=== PATIENT | female | born 1945 | race Caucasian/White ===

== ENCOUNTER 2023-11-22 20:54 | Inpatient (IN) ==
[2023-11-22] MEDS: ONDANSETRON INJ 2 MG/ML 2 ML VIAL IV STA ×2 (21:16→23:31)
[2023-11-22] MEDS: SODIUM CHLORIDE 0.9% 500 ML IV STA (21:16)
[2023-11-22] MEDS: KETOROLAC TROMETHAMINE 15 MG/ML VIAL IV STA (21:17)
[2023-11-22 21:49] LABS: Basophils # (auto) 0.02 K/uL (0.00-0.20); Basophils % (auto) 0.2 %; Eosinophils # (auto) 0.05 K/uL (0.00-0.50); Eosinophils % (auto) 0.4 %; Hematocrit (blood only) 39.7 % (37.0-47.0); Hemoglobin 14.2 g/dl (12.0-16.0); Immature Granulocytes # (auto) 0.04 K/uL (0.01-0.20); Immature Granulocytes % (auto) 0.3 %; Lymphocytes # (auto) 1.63 K/uL (1.20-3.40); Lymphocytes % (auto) 12.9 %; Mean Corpuscular Hgb Conc 35.8 g/dL (32.0-36.0); Mean Corpuscular Volume 86.7 fL (80.0-100.0); Mean Platelet Volume 10.3 fL (9.4-12.4); Monocytes # (auto) 0.69 K/uL (0.11-0.59); Monocytes % (auto) 5.4 %; Neutrophils # (auto) 10.24 K/uL (1.40-6.50); Neutrophils % (auto) 80.8 %; Platelet Count 252 K/uL (130-400); RDW Coefficient of Variation 12.2 % (11.5-14.5); RDW Standard Deviation 38.6 fL (36.4-46.3); Red Blood Count 4.58 M/uL (4.20-5.40); White Blood Count 12.67 K/ul (4.8-10.8)
[2023-11-22 22:05] LABS: Alanine Aminotransferase 16 U/L (7-52); Albumin Globulin Ratio 1.6 (0.9-2); Albumin Level 4.5 gm/dl (3.4-5.0); Alkaline Phosphatase 83 U/L (34-104); BUN Creatinine Ratio 28.6 (10-20); Bilirubin,Total 0.8 mg/dl (0.2-1.0); Blood Urea Nitrogen 16 mg/dl (6-23); Calcium 9.8 mg/dl (8.6-10.3); Carbon Dioxide 22 mmol/L (21-32); Chloride 97 mmol/L (98-107); Creatinine Clr Calc Pharmacy 62.4 ml/min; Est GFR (African American) 103.5 ml/min; Est GFR (Non-African American) 89.3 ml/min; Globulin 2.9 gm/dl (2.5-4.0); Glucose 138 mg/dl (70-99(Fasting)); Lipase 16 U/L (11-82); Total Protein 7.4 gm/dl (6.0-8.3)
[2023-11-22 22:52] LABS: Potassium 4.1 mmol/L (3.5-5.1)
[2023-11-22] MEDS: OPTIRAY 320 100ml IV ONE (23:02)
[2023-11-22] MEDS: MoRPHine SULFATE 2 MG/ML CARP IV STA (23:31)
--- NOTE | 2023-11-23 00:03 | CT Scan Report ---
Exam(s): CT ABDOMEN + PELVIS With Contrast IV Amt: 90 ml opti 320 EXAM: CT Abdomen and Pelvis With Intravenous Contrast CLINICAL HISTORY: Reason for exam: abd pain, elevated WBC. TECHNIQUE: Axial computed tomography images of the abdomen and pelvis with intravenous contrast. Automated exposure control was utilized for the study. A dose lowering technique was utilized adhering to the principles of ALARA. CONTRAST: Patient received 90 ml opti 320 of IV contrast COMPARISON: No relevant prior studies available. FINDINGS: Lung bases: No consolidation. ABDOMEN: Liver: No mass. Gallbladder and bile ducts: There are gallstones noted within the gallbladder.. No ductal dilation. Pancreas: No mass. No ductal dilation. Spleen: No splenomegaly. Adrenals: No mass. Kidneys and ureters: No hydronephrosis. There are rounded lucencies in both kidneys. Stomach and bowel: There is a small hiatal hernia. The stomach is distended containing fluid and air. There are markedly distended loops of mid small bowel. There is air and stool noted in the colon. There are diverticula present on the colon. No significant inflammatory changes are noted. PELVIS: Appendix: The appendix is not visualized.. Bladder: No calculi are noted within the bladder.. Reproductive: Patient appears to be status post hysterectomy.. ABDOMEN and PELVIS: Intraperitoneal space: No free air. No significant fluid collection. Bones/joints: There are degenerative changes in the spine. There is a grade 1 spondylolisthesis of L3 on L4. Soft tissues: Unremarkable. Vasculature: No abdominal aortic aneurysm. Lymph nodes: No enlarged lymph nodes. IMPRESSION: There are markedly distended loops of mid small bowel. This is compatible with a partial high-grade small bowel obstruction. Small hiatal hernia. Cholelithiasis. Diverticulosis. There are possible bilateral renal cysts. See discussion above Electronically signed by: Onel Carreon MD 11/23/23 00:01 AM
[2023-11-23] MEDS ORDERED: MoRPHine SULFATE 2 MG/ML CARP IV PRN (00:13)
--- NOTE | 2023-11-23 00:42 | Emergency Department Note ---
Impression & Plan Small bowel obstruction ED Provider Note CHIEF COMPLAINT: abd pain HISTORY OF PRESENT ILLNESS: This 78-year-old female patient with past medical history of high blood pressure and small bowel obstruction presents emergency department with complaints of left lower quadrant abdominal pain since about 3:00 this afternoon. The patient states she had a bowel movement this morning without any difficulty. She admits to nausea, but has not vomited. She denies any recent febrile illnesses. She states she was in an outside emergency department last week for hypertension. She states she was placed on lisinopril 10 mg twice a day, which is the first time she has ever been on high blood pressure treatment. REVIEW OF SYSTEMS: A review of systems was performed with positives and pertinent negatives listed in the history of present illness. 10 systems were reviewed and are otherwise negative. ALLERGIES: see below MEDICATIONS: see below PMH: see below SOCIAL HISTORY: see below DDx: SBO, viral etiology, diverticulitis, UTI, kidney stone, among others. PHYSICAL EXAM: Vital signs reviewed. General: Well-appearing 78 yo female, in some discomfort. HEENT: No scleral icterus, PERRLA, neck supple. Atraumatic. Cardiovascular: Regular rate and rhythm, no extra sounds. Pulmonary: Clear to auscultation bilaterally, normal work of breathing. Abdomen: Soft, LLQ tenderness, + tympany to percussion, nondistended, positive bowel sounds. Musculoskeletal: Atraumatic, no peripheral edema. Neurologic: Patient awake alert and oriented x 3, speech is clear Skin: Warm, dry, no rash EMERGENCY DEPARTMENT COURSE/MDM: This patient was evaluated and appeared to be in no significant distress. IV access was obtained and laboratory work was drawn. The patient was placed on the cafeteria monitor noted to be in a normal sinus rhythm. IV normal saline solution was administered. CT imaging of the abdomen pelvis reveals a partial high-grade small bowel obstruction. NG tube to low intermittent suction was ordered. Patient did receive IV Toradol,morphine and Zofran for her discomfort. Laboratory work is fairly reassuring, but WBC is noted to be 12.6.. patient's case was discussed with Dr. Marcus of the hospitalist service who will evaluate the patient for admission and further management. patient and her were made aware of the plan and agreed. MONITORING: An order for cardiac monitoring was placed and the patient is noted to be in a NSR at 77 beats per minute. RADIOLOGY: CT abd pelvis: IMPRESSION: There are markedly distended loops of mid small bowel. This is compatible with a partial high-grade small bowel obstruction. Small hiatal hernia. Cholelithiasis. Diverticulosis. There are possible bilateral renal cysts. See discussion above EKG: To my interpretation reveals a normal sinus rhythm at 69 bpm. Previous inferior infarct. QTc of 443. No PVC, no PAC. 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 Beliefs That Will Affect Care: None Current Living Situation: Alone Feels Safe at Home: Yes Assistive Devices: None Allergies Allergies Allergy/AdvReac Type Severity Reaction Status Date / Time sulfasalazine Allergy Intermediate Difficulty Verified 11/22/23 23:42 Breathing droperidol [From Inapsine] Allergy Mild Agitated Verified 11/22/23 23:42 prochlorperazine AdvReac Intermediate spasm Verified 11/22/23 23:30 [From Compazine] fluconazole AdvReac Mild Vomiting Verified 11/22/23 23:42 meperidine [From Demerol] AdvReac Mild Anxiety Verified 11/22/23 23:42 albuterol AdvReac Tachycardia Verified 11/22/23 23:42 [From Proventil HFA] Home Meds Home Medications Medication Instructions Recorded Confirmed levalbuterol tartrate 45 2 puff inhalation Q4 PRN Shortness 11/22/23 11/22/23 mcg/actuation aerosol inhaler Of Breath Or Wheezing lisinopril 10 mg tablet 10 mg PO BID 11/22/23 11/22/23 Results & Data (ED) Vital Signs Vital Signs - 24 hr 11/22/23 20:57 11/22/23 21:48 11/22/23 21:48 Temperature 36.6 C Temperature Source Temporal Artery Scan Pulse Rate 75 Pulse Rate from SpO2 Sensor Pulse Rhythm Regular Pulse Strength Normal Respiratory Rate 22 Respiratory Effort / Characteristics Non-Labored Spontaneous Respiratory Depth Normal Blood Pressure 187/77 H 172/96 H 172/96 H Blood Pressure Mean 113 128 128 Blood Pressure Position Sitting Pulse Oximetry 99 Oxygen Delivery Method Room Air Sepsis Recent Fever Within 48 Hours No Sepsis New/Unexplained Change in Mental Status N/A Sepsis Action Taken by Nursing No Action Required 11/22/23 21:48 11/22/23 21:49 11/22/23 21:51 Temperature Temperature Source Pulse Rate 68 68 Pulse Rate from SpO2 Sensor 68 Pulse Rhythm Pulse Strength Respiratory Rate 20 Respiratory Effort / Characteristics Respiratory Depth Blood Pressure 172/96 H Blood Pressure Mean 128 Blood Pressure Position Pulse Oximetry 98 Oxygen Delivery Method Sepsis Recent Fever Within 48 Hours Sepsis New/Unexplained Change in Mental Status Sepsis Action Taken by Nursing 11/22/23 22:00 11/22/23 22:00 11/22/23 22:24 Temperature Temperature Source Pulse Rate 68 72 Pulse Rate from SpO2 Sensor 67 73 Pulse Rhythm Pulse Strength Respiratory Rate 19 26 H Respiratory Effort / Characteristics Respiratory Depth Blood Pressure 158/87 H Blood Pressure Mean 113 Blood Pressure Position Pulse Oximetry 92 98 Oxygen Delivery Method Sepsis Recent Fever Within 48 Hours Sepsis New/Unexplained Change in Mental Status Sepsis Action Taken by Nursing 11/22/23 22:30 11/22/23 23:19 11/22/23 23:19 Temperature Temperature Source Pulse Rate Pulse Rate from SpO2 Sensor Pulse Rhythm Pulse Strength Respiratory Rate Respiratory Effort / Characteristics Respiratory Depth Blood Pressure 126/55 L 140/93 140/93 Blood Pressure Mean 96 117 117 Blood Pressure Position Pulse Oximetry Oxygen Delivery Method Sepsis Recent Fever Within 48 Hours Sepsis New/Unexplained Change in Mental Status Sepsis Action Taken by Nursing 11/22/23 23:39 Temperature Temperature Source Pulse Rate 77 Pulse Rate from SpO2 Sensor 77 Pulse Rhythm Pulse Strength Respiratory Rate 22 Respiratory Effort / Characteristics Respiratory Depth Blood Pressure Blood Pressure Mean Blood Pressure Position Pulse Oximetry 96 Oxygen Delivery Method Sepsis Recent Fever Within 48 Hours Sepsis New/Unexplained Change in Mental Status Sepsis Action Taken by Skilled Nursing Medications Current Medication List: was personally reviewed by me Laboratory Data Attestation: I reviewed the patient's lab results. 11/28/23 06:00 11/28/23 06:00 Lab Results 11/22/23 11/22/23 Range/Units 21:19 22:18 WBC 12.67 H (4.8-10.8) K/ul RBC 4.58 (4.20-5.40) M/uL Hgb 14.2 (12.0-16.0) g/dl Hct 39.7 (37.0-47.0) % MCV 86.7 (80.0-100.0) fL MCH 31.0 (25.0-34.0) pg MCHC 35.8 (32.0-36.0) g/dL RDW Std Deviation 38.6 (36.4-46.3) fL RDW Coeff of [place] 12.2 (11.5-14.5) % Plt Count 252 (130-400) K/uL MPV 10.3 (9.4-12.4) fL Immature Gran % (Auto) 0.3 % Neut % (Auto) 80.8 % Lymph % (Auto) 12.9 % [place] % (Auto) 5.4 % Eos % (Auto) 0.4 % Baso % (Auto) 0.2 % Neut # (Auto) 10.24 H (1.40-6.50) K/uL Lymph # (Auto) 1.63 (1.20-3.40) K/uL [place] # (Auto) 0.69 H (0.11-0.59) K/uL Eos # (Auto) 0.05 (0.00-0.50) K/uL Baso # (Auto) 0.02 (0.00-0.20) K/uL Immature Gran # (Auto) 0.04 (0.01-0.20) K/uL Sodium TNP 131 L Potassium TNP 4.1 Chloride 97 L (98-107) mmol/L Carbon Dioxide 22 (21-32) mmol/L Anion Gap TNP BUN 16 (6-23) mg/dl Creatinine 0.56 L (0.6-1.2) mg/dl Est Cr Clr Drug Dosing 62.4 ml/min Est GFR ( Amer) 103.5 ml/min Est GFR (Non-Af Amer) 89.3 ml/min BUN/Creatinine Ratio 28.6 H (10-20) Glucose 138 H (70-99(Fasting)) mg/dl Calcium 9.8 (8.6-10.3) mg/dl Total Bilirubin 0.8 (0.2-1.0) mg/dl AST TNP 23 ALT 16 (7-52) U/L Alkaline Phosphatase 83 (34-104) U/L Total Protein 7.4 (6.0-8.3) gm/dl Albumin 4.5 (3.4-5.0) gm/dl Globulin 2.9 (2.5-4.0) gm/dl Albumin/Globulin Ratio 1.6 (0.9-2) Lipase 16 (11-82) U/L Administered Medications Bisacodyl (Bisacodyl 10 Mg Supp) 10 mg ME DAILY PRN PRN Reason: Constipation Stop: 12/25/23 20:04 Last Admin: 11/25/23 21:34 Dose: 10 mg Documented By: CHARLA Docusate Sodium (Docusate Sodium 100 Mg Cap) 100 mg PO BID [facility] Stop: 12/26/23 10:29 Last Admin: 11/28/23 20:37 Dose: 100 mg Documented By: Admin: 11/28/23 10:14 Dose: Not Given Documented By: Admin: 11/27/23 20:55 Dose: 100 mg Documented By: Admin: 11/27/23 09:27 Dose: 100 mg Documented By: Admin: 11/26/23 20:07 Dose: 100 mg Documented By: Admin: 11/26/23 11:51 Dose: 100 mg Documented By: Heparin Sodium (Porcine) (Heparin Sod 5,000 Unit/0.5 Ml Vial) 5,000 units SQ Q12 [facility] Stop: 12/24/23 20:59 Last Admin: 11/28/23 20:37 Dose: Not Given Documented By: Admin: 11/28/23 09:03 Dose: Not Given Documented By: Admin: 11/27/23 20:55 Dose: Not Given Documented By: Admin: 11/27/23 09:20 Dose: Not Given Documented By: Admin: 11/26/23 20:07 Dose: Not Given Documented By: Admin: 11/26/23 11:35 Dose: Not Given Documented By: Admin: 11/25/23 21:24 Dose: Not Given Documented By: Admin: 11/25/23 08:41 Dose: Not Given Documented By: Admin: 11/24/23 20:20 Dose: Not Given Documented By: CHARLA Pantoprazole Sodium 40 mg/ (Syringe) 10 mls @ 5 mls/min IV DAILY@1100 GO Stop: 12/23/23 10:59 Last Admin: 11/28/23 10:23 Dose: 5 mls/min Documented By: Admin: 11/27/23 11:29 Dose: 5 mls/min Documented By: Admin: 11/26/23 12:19 Dose: Not Given Documented By: Admin: 11/25/23 11:47 Dose: 5 mls/min Documented By: Admin: 11/24/23 11:06 Dose: 5 mls/min Documented By: Admin: 11/23/23 12:18 Dose: 5 mls/min Documented By: TRUDY Potassium Chloride/Dextrose/Sod Cl (D5nss + 20meq Kcl) 20 meq in 1,000 mls @ 60 mls/hr IV .[id number] [facility] Stop: 12/27/23 07:59 Last Admin: 11/28/23 17:53 Dose: 60 mls/hr Documented By: Infusion: 11/28/23 17:53 Dose: Infused Documented By: Admin: 11/28/23 02:17 Dose: 60 mls/hr Documented By: Infusion: 11/28/23 02:08 Dose: Infused Documented By: Admin: 11/27/23 09:27 Dose: 60 mls/hr Documented By: CRISTINE Thiamine HCl 200 mg/ Sodium (Chloride) 52 mls @ 210 mls/hr IV QAM [facility] Stop: 12/27/23 08:59 Last Infusion: 11/28/23 10:56 Dose: Infused Documented By: Admin: 11/28/23 10:22 Dose: 210 mls/hr Documented By: Infusion: 11/27/23 11:49 Dose: Infused Documented By: Admin: 11/27/23 11:27 Dose: 210 mls/hr Documented By: CRISTINE Morphine Sulfate (Morphine Sulfate 2 Mg/Ml Carp) 2 mg IV Q3H PRN PRN Reason: Mod-Sev Pain (Scale 4-10) Stop: 12/07/23 00:59 Last Admin: 11/23/23 02:38 Dose: 2 mg Documented By: MAHAMED Ondansetron HCl (Ondansetron Inj 2 Mg/Ml 2 Ml Vial) 4 mg IV Q6H PRN PRN Reason: Nausea And Vomiting Stop: 12/23/23 00:12 Last Admin: 11/23/23 16:44 Dose: 4 mg Documented By: Admin: 11/23/23 08:55 Dose: 4 mg Documented By: Admin: 11/23/23 03:07 Dose: 4 mg Documented By: ANNA Phenol (Chloraseptic (Phenol) 1.4% Soln 180 Ml Btl) 1 sprays MT Q2H PRN PRN Reason: oral cavity/oropharyngeal pain Stop: 12/25/23 21:24 Last Admin: 11/25/23 22:36 Dose: 1 sprays Documented By: CHARLA Polyethylene Glycol (Polyethylene (Miralax) 17 Gm Pack) 17 gm NG DAILY GO Stop: 12/27/23 08:59 Last Admin: 11/28/23 10:14 Dose: Not Given Documented By: Admin: 11/27/23 09:26 Dose: 17 gm Documented By: CRISTINE Discontinued Medications Bisacodyl (Bisacodyl 10 Mg Supp) 10 mg ME NOW STA Stop: 11/23/23 21:36 Last Admin: 11/24/23 05:57 Dose: Not Given Documented By: TERESA Bisacodyl (Bisacodyl 10 Mg Supp) 10 mg ME NOW STA Stop: 11/24/23 20:45 Last Admin: 11/25/23 19:19 Dose: Not Given Documented By: MAO Bisacodyl (Bisacodyl 10 Mg Supp) 10 mg ME NOW STA Stop: 11/25/23 22:01 Last Admin: 11/25/23 22:26 Dose: Not Given Documented By: MAO Bisacodyl (Bisacodyl 10 Mg Supp) 10 mg ME NOW STA Stop: 11/28/23 10:04 Last Admin: 11/28/23 10:22 Dose: 10 mg Documented By: CRISTINE Sodium Chloride (Nss) 500 mls @ 999 mls/hr IV .Q31M STA Stop: 11/22/23 21:35 Last Infusion: 11/22/23 22:22 Dose: Infused Documented By: Admin: 11/22/23 21:16 Dose: 999 mls/hr Documented By: PANTERA Acetaminophen (Ofirmev) 1,000 mg in 100 mls @ 400 mls/hr IV Q8H PRN PRN Reason: Pain or Fever Stop: 11/26/23 00:46 Last Infusion: 11/25/23 18:05 Dose: Infused Documented By: Admin: 11/25/23 17:15 Dose: 400 mls/hr Documented By: Infusion: 11/24/23 03:24 Dose: Infused Documented By: Admin: 11/24/23 02:29 Dose: 400 mls/hr Documented By: Infusion: 11/23/23 17:44 Dose: Infused Documented By: Admin: 11/23/23 17:07 Dose: 400 mls/hr Documented By: Infusion: 11/23/23 04:17 Dose: Infused Documented By: Admin: 11/23/23 03:41 Dose: 400 mls/hr Documented By: ANNA Potassium Chloride/Sodium Chloride (Normal Saline W/20 Meq Kcl) 20 meq in 1,000 mls @ 100 mls/hr IV .Q10H GO Stop: 12/23/23 13:20 Last Admin: 11/23/23 13:21 Dose: Not Given Documented By: Infusion: 11/23/23 13:21 Dose: Infused Documented By: Admin: 11/23/23 01:18 Dose: 100 mls/hr Documented By: MAHAMED Pantoprazole Sodium 40 mg/ (Syringe) 10 mls @ 5 mls/min IV NOW ONE Stop: 11/23/23 01:01 Last Admin: 11/23/23 02:12 Dose: 5 mls/min Documented By: MAHAMED Piperacillin Sod/Tazobactam Sod (Zosyn) 4.5 gm in 100 mls @ 25 mls/hr IV Q8H GO Stop: 12/03/23 05:59 Last Infusion: 11/24/23 11:44 Dose: Infused Documented By: Admin: 11/24/23 07:26 Dose: 25 mls/hr Documented By: Infusion: 11/24/23 03:39 Dose: Infused Documented By: Admin: 11/23/23 23:17 Dose: 25 mls/hr Documented By: Infusion: 11/23/23 21:52 Dose: Infused Documented By: Admin: 11/23/23 15:54 Dose: 25 mls/hr Documented By: Infusion: 11/23/23 10:30 Dose: Infused Documented By: Admin: 11/23/23 06:12 Dose: 25 mls/hr Documented By: HB Piperacillin Sod/Tazobactam Sod (Zosyn) 4.5 gm in 100 mls @ 200 mls/hr IV NOW STA; Protocol Stop: 11/23/23 01:31 Last Infusion: 11/23/23 02:16 Dose: Infused Documented By: Admin: 11/23/23 01:18 Dose: 200 mls/hr Documented By: MAHAMED Sodium Chloride (Nss) 1,000 mls @ 60 mls/hr IV .[id number] GO Stop: 12/23/23 13:29 Last Infusion: 11/24/23 12:45 Dose: Infused Documented By: Admin: 11/23/23 23:15 Dose: 75 mls/hr Documented By: Infusion: 11/23/23 23:15 Dose: Infused Documented By: Infusion: 11/23/23 20:00 Dose: 75 mls/hr Documented By: Admin: 11/23/23 13:52 Dose: 100 mls/hr Documented By: MUSTAPHAK Dextrose/Sodium Chloride (D5w And Nss) 1,000 mls @ 60 mls/hr IV .[id number] GO Stop: 12/24/23 16:29 Last Infusion: 11/25/23 15:39 Dose: Infused Documented By: Admin: 11/25/23 09:35 Dose: 60 mls/hr Documented By: Infusion: 11/25/23 09:35 Dose: Infused Documented By: Admin: 11/24/23 16:53 Dose: 60 mls/hr Documented By: ALIVIA Potassium Chloride/Dextrose/Sod Cl (D5nss + 20meq Kcl) 20 meq in 1,000 mls @ 60 mls/hr IV .[id number] GO Stop: 12/25/23 15:14 Last Admin: 11/26/23 12:08 Dose: Not Given Documented By: Infusion: 11/26/23 08:07 Dose: Infused Documented By: Admin: 11/25/23 15:34 Dose: 60 mls/hr Documented By: ALIVIA Dextrose/Sodium Chloride (D5w And Nss) 1,000 mls @ 60 mls/hr IV .[id number] GO Stop: 12/26/23 15:14 Last Infusion: 11/27/23 09:35 Dose: Infused Documented By: Admin: 11/26/23 15:51 Dose: 60 mls/hr Documented By: AYLEEN Potassium Chloride (K Ronald / Wtr) 10 meq in 100 mls @ 100 mls/hr IV Q1H GO Stop: 11/27/23 11:44 Last Infusion: 11/27/23 15:50 Dose: Infused Documented By: Admin: 11/27/23 14:21 Dose: 100 mls/hr Documented By: Infusion: 11/27/23 14:17 Dose: Infused Documented By: Admin: 11/27/23 13:17 Dose: 100 mls/hr Documented By: Infusion: 11/27/23 12:45 Dose: Infused Documented By: Admin: 11/27/23 11:45 Dose: 100 mls/hr Documented By: Infusion: 11/27/23 11:27 Dose: Infused Documented By: Admin: 11/27/23 09:27 Dose: 100 mls/hr Documented By: CRISTINE Ioversol (Optiray 320 100ml) 90 ml IV ONCE ONE Stop: 11/22/23 23:03 Last Admin: 11/22/23 23:02 Dose: 90 ml Documented By: MISAEL Ketorolac Tromethamine (Ketorolac Tromethamine 15 Mg/Ml Vial) 15 mg IV ONE STA Stop: 11/22/23 21:05 Last Admin: 11/22/23 21:17 Dose: 15 mg Documented By: PANTERA Ketorolac Tromethamine (Ketorolac Tromethamine 15 Mg/Ml Vial) 10 mg IV NOW ONE Stop: 11/24/23 03:44 Last Admin: 11/24/23 03:58 Dose: 10 mg Documented By: TERESA Morphine Sulfate (Morphine Sulfate 2 Mg/Ml Carp) 2 mg IV NOW STA Stop: 11/22/23 23:26 Last Admin: 11/22/23 23:31 Dose: 2 mg Documented By: MAHAMED Ondansetron HCl (Ondansetron Inj 2 Mg/Ml 2 Ml Vial) 4 mg IV NOW STA Stop: 11/22/23 21:05 Last Admin: 11/22/23 21:16 Dose: 4 mg Documented By: PANTERA Ondansetron HCl (Ondansetron Inj 2 Mg/Ml 2 Ml Vial) 4 mg IV NOW STA Stop: 11/22/23 23:26 Last Admin: 11/22/23 23:31 Dose: 4 mg Documented By: MAHAMED Polyethylene Glycol (Polyethylene (Miralax) 17 Gm Pack) 17 gm PO NOW STA Stop: 11/26/23 10:17 Last Admin: 11/26/23 11:50 Dose: 17 gm Documented By: Imaging Data Radiologist's Impression: Abdomen/Pelvis CT 11/22/23 22:05 Exam(s): CT ABDOMEN + PELVIS With Contrast IV Amt: 90 ml opti 320 EXAM: CT Abdomen and Pelvis With Intravenous Contrast CLINICAL HISTORY: Reason for exam: abd pain, elevated WBC. TECHNIQUE: Axial computed tomography images of the abdomen and pelvis with intravenous contrast. Automated exposure control was utilized for the study. A dose lowering technique was utilized adhering to the principles of ALARA. CONTRAST: Patient received 90 ml opti 320 of IV contrast COMPARISON: No relevant prior studies available. FINDINGS: Lung bases: No consolidation. ABDOMEN: Liver: No mass. Gallbladder and bile ducts: There are gallstones noted within the gallbladder.. No ductal dilation. Pancreas: No mass. No ductal dilation. Spleen: No splenomegaly. Adrenals: No mass. Kidneys and ureters: No hydronephrosis. There are rounded lucencies in both kidneys. Stomach and bowel: There is a small hiatal hernia. The stomach is distended containing fluid and air. There are markedly distended loops of mid small bowel. There is air and stool noted in the colon. There are diverticula present on the colon. No significant inflammatory changes are noted. PELVIS: Appendix: The appendix is not visualized.. Bladder: No calculi are noted within the bladder.. Reproductive: Patient appears to be status post hysterectomy.. ABDOMEN and PELVIS: Intraperitoneal space: No free air. No significant fluid collection. Bones/joints: There are degenerative changes in the spine. There is a grade 1 spondylolisthesis of L3 on L4. Soft tissues: Unremarkable. Vasculature: No abdominal aortic aneurysm. Lymph nodes: No enlarged lymph nodes. IMPRESSION: There are markedly distended loops of mid small bowel. This is compatible with a partial high-grade small bowel obstruction. Small hiatal hernia. Cholelithiasis. Diverticulosis. There are possible bilateral renal cysts. See discussion above Electronically signed by: Onel Carreon MD 11/23/23 00:01 AM Discharge Plan Visit Data Chief Complaint: Abdominal Pain Stated Complaint: SEVERE ABD PAIN, HYPERTENTION 190/98 ED Provider: Bere Graham Discharge Problem: Small bowel obstruction Patient Disposition: Admitted As Inpatient Discharge Instructions Interventions: ED Discharge Assessment Last Done: 11/23/23 01:56
[2023-11-23] MEDS ORDERED: MoRPHine SULFATE 4 MG/ML 1 ML CARP\\VIAL IV PRN (00:47)
[2023-11-23 00:48] LABS: Appearance Urine Clear (Clear); Bilirubin Urine Negative (Negative); Blood Urine Negative (Negative); Color Urine Yellow; Glucose Urine UA Negative (Negative); Ketones Urine 1+ (Negative); Leukocyte Esterase Urine Negative (Negative); Nitrite Urine Negative (Negative); Protein Urine Negative (Negative); Specific Gravity Urine > 1.045 (1.000-1.030); Urobilinogen Urine Negative (Negative); pH Urine 8.5 (4.5-7.5)
[2023-11-23] MEDS ORDERED: hydrALAZINE HCL 20 MG/ML VIAL IV PRN ×2 (00:52→11:52)
--- NOTE | 2023-11-23 00:56 | History & Physical Report ---
Date of Service November 23, 2023 Assessment & Plan (1) Small bowel obstruction: (2) Hypertension: (3) Asthma: (4) Hiatal hernia: Plan Small bowel obstruction- History of sigmoid resection secondary to bowel perforation in 2017 Multiple episodes of small bowel obstruction, most recently in 2021 and [address] scan this evening showing partial high-grade small bowel obstruction NPO NG tube to low intermittent suction Zofran 4 mg IV every 6 hours as needed Acetaminophen 1 g IV every 8 hours as needed for mild pain or fever Morphine sulfate 2 mg IV every 3 hours as needed for moderate to severe pain Pantoprazole 40 mg IV daily Zosyn 4.5 g IV every 8 hours NSS + KCl 20 mill equivalents at 100 mL/h CBC with differential, chemistry profile and magnesium in the a.m. Consult to general surgery Asthma- Continue levalbuterol HFA 2 puffs every 4 hours as needed Hypertension- Hold lisinopril 10 mg p.o. twice daily Hydralazine 10 mg IV every 4 hours as needed for systolic blood pressure above 160 Hiatal hernia- Pantoprazole 40 mg IV daily History of Present Illness Chief Complaint: The patient presents to the emergency department with complaint of acute abdominal pain with nausea and vomiting that began about 3:00 this afternoon. She attempted to use MiraLAX, probiotics and few other agents without improvement. The symptoms are similar to previous episodes of small bowel obstructions, which prompted her to come to the emergency department this evening. Primary Care Provider: Bishnu Gaviria The patient is a 78-year-old female with a past medical history including small bowel obstruction with perforation requiring sigmoid resection in 2016, recurrences of symptoms in 2017, 2021 2022. Her past medical history also includes hypertension, which tends to be higher during episodes of bowel obstructions, and she has asthma that she uses levalbuterol for as needed. She denies any recent travels or sick exposures. She denies any different food intakes and usual. Allergies Allergy/AdvReac Type Severity Reaction Status Date / Time sulfasalazine Allergy Intermediate Difficulty Verified 11/22/23 23:42 Breathing droperidol [From Inapsine] Allergy Mild Agitated Verified 11/22/23 23:42 prochlorperazine AdvReac Intermediate spasm Verified 11/22/23 23:30 [From Compazine] fluconazole AdvReac Mild Vomiting Verified 11/22/23 23:42 meperidine [From Demerol] AdvReac Mild Anxiety Verified 11/22/23 23:42 albuterol AdvReac Tachycardia Verified 11/22/23 23:42 [From Proventil HFA] Home Medications Medication Instructions Recorded Confirmed Type levalbuterol tartrate 45 2 puff inhalation Q4 PRN Shortness 11/22/23 11/22/23 History mcg/actuation aerosol inhaler Of Breath Or Wheezing lisinopril 10 mg tablet 10 mg PO BID 11/22/23 11/22/23 History Past Med/Surg History Problem List (Updated 11/23/23 @ 01:02 by Yoshi Arreaga MD) Hiatal hernia Asthma Hypertension Small bowel obstruction Social History Smoking Status: Never smoker Preferred Language: [place] Feels Safe at Home: Yes Review of Systems Review of Systems: The patient denies chest pain, palpitations, shortness of breath, dyspnea on exertion, cough, lower extremity swelling, sore throat, fevers, chills, sweats, blood in urine or stool, dysuria, urinary frequency or urgency, lightheadedness, dizziness, headache, memory loss, loss of consciousness, rash, abnormal bruising or bleeding, imbalance, focal or generalized weakness, numbness or tingling in arms or legs, generalized arthralgias or myalgias, back or neck pain, or night sweats. The review of systems is otherwise negative other than for that already noted above, and at least 10 systems have been reviewed. Physical Exam Physical Exam: The patient is awake, alert and oriented 3, well developed and well nourished, normocephalic and atraumatic, lying in bed and in no acute distress. HEENT--PERRL, EOMI, mucous membranes and oropharynx dry. NG tube is now in place Neck--supple. No JVD. No bruits. Thyroid normal, trachea midline, no adenopathy. Heart--normal S1 and S2. No murmurs, rubs or gallops. Lungs--clear bilaterally, no respiratory distress, no accessory muscle use. Abdomen--decreased bowel sounds . Mild firmness and tympanitic. Mildly distended. No pain post morphine Extremities--no cyanosis or clubbing. No edema. Dermatologic--normal skin turgor, normal color, no abnormal lymph nodes, no rash. Neurologic--cranial nerves II through XII grossly intact. Rheumatologic--normal range of motion. Psychiatric--normal affect. Results & Data Results & Data Vital Signs (Past 12 Hours) Vital Signs Temp Pulse Resp BP Pulse Ox O2 Del Method 11/22/23 23:39 77 22 96 11/22/23 23:19 140/93 11/22/23 23:19 140/93 11/22/23 22:30 126/55 L 11/22/23 22:24 72 26 H 98 11/22/23 22:00 68 19 92 11/22/23 22:00 158/87 H 11/22/23 21:51 68 20 98 11/22/23 21:49 68 11/22/23 21:48 172/96 H 11/22/23 21:48 172/96 H 11/22/23 21:48 172/96 H 11/22/23 20:57 36.6 C 75 22 187/77 H 99 Room Air Laboratory Results Laboratory Results WBC 12.67 K/ul (4.8-10.8) H 11/22/23 21:19 RBC 4.58 M/uL (4.20-5.40) 11/22/23 21:19 Hgb 14.2 g/dl (12.0-16.0) 11/22/23 21:19 Hct 39.7 % (37.0-47.0) 11/22/23 21:19 MCV 86.7 fL (80.0-100.0) 11/22/23 21:19 MCH 31.0 pg (25.0-34.0) 11/22/23 21:19 MCHC 35.8 g/dL (32.0-36.0) 11/22/23 21:19 RDW Std Deviation 38.6 fL (36.4-46.3) 11/22/23 21:19 RDW Coeff of Pineda 12.2 % (11.5-14.5) 11/22/23 21:19 Plt Count 252 K/uL (130-400) 11/22/23 21:19 MPV 10.3 fL (9.4-12.4) 11/22/23 21:19 Immature Gran % (Auto) 0.3 % 11/22/23 21:19 Neut % (Auto) 80.8 % 11/22/23 21:19 Lymph % (Auto) 12.9 % 11/22/23 21:19 [place] % (Auto) 5.4 % 11/22/23 21:19 Eos % (Auto) 0.4 % 11/22/23 21:19 Baso % (Auto) 0.2 % 11/22/23 21:19 Neut # (Auto) 10.24 K/uL (1.40-6.50) H 11/22/23 21:19 Lymph # (Auto) 1.63 K/uL (1.20-3.40) 11/22/23 21:19 [place] # (Auto) 0.69 K/uL (0.11-0.59) H 11/22/23 21:19 Eos # (Auto) 0.05 K/uL (0.00-0.50) 11/22/23 21:19 Baso # (Auto) 0.02 K/uL (0.00-0.20) 11/22/23 21:19 Immature Gran # (Auto) 0.04 K/uL (0.01-0.20) 11/22/23 21:19 Sodium 131 mmol/L (136-145) L 11/22/23 22:18 Potassium 4.1 mmol/L (3.5-5.1) 11/22/23 22:18 Chloride 97 mmol/L (98-107) L 11/22/23 21:19 Carbon Dioxide 22 mmol/L (21-32) 11/22/23 21:19 Anion Gap TNP 11/22/23 21:19 BUN 16 mg/dl (6-23) 11/22/23 21:19 Creatinine 0.56 mg/dl (0.6-1.2) L 11/22/23 21:19 Est Cr Clr Drug Dosing 62.4 ml/min 11/22/23 21:19 Est GFR ( Amer) 103.5 ml/min 11/22/23 21:19 Est GFR (Non-Af Amer) 89.3 ml/min 11/22/23 21:19 BUN/Creatinine Ratio 28.6 (10-20) H 11/22/23 21:19 Glucose 138 mg/dl (70-99(Fasting)) H 11/22/23 21:19 Calcium 9.8 mg/dl (8.6-10.3) 11/22/23 21:19 Total Bilirubin 0.8 mg/dl (0.2-1.0) 11/22/23 21:19 AST 23 U/L (13-39) 11/22/23 22:18 ALT 16 U/L (7-52) 11/22/23 21:19 Alkaline Phosphatase 83 U/L (34-104) 11/22/23 21:19 Total Protein 7.4 gm/dl (6.0-8.3) 11/22/23 21:19 Albumin 4.5 gm/dl (3.4-5.0) 11/22/23 21:19 Globulin 2.9 gm/dl (2.5-4.0) 11/22/23 21:19 Albumin/Globulin Ratio 1.6 (0.9-2) 11/22/23 21:19 Lipase 16 U/L (11-82) 11/22/23 21:19 Urine Color Yellow 11/23/23 Unknown Urine Appearance Clear (Clear) 11/23/23 Unknown Urine pH 8.5 (4.5-7.5) H 11/23/23 Unknown Ur Specific [place] > 1.045 (1.000-1.030) H 11/23/23 Unknown Urine Protein Negative (Negative) 11/23/23 Unknown Urine Glucose (UA) Negative (Negative) 11/23/23 Unknown Urine Ketones 1+ (Negative) H 11/23/23 Unknown Urine Blood Negative (Negative) 11/23/23 Unknown Urine Nitrite Negative (Negative) 11/23/23 Unknown Urine Bilirubin Negative (Negative) 11/23/23 Unknown Urine Urobilinogen Negative (Negative) 11/23/23 Unknown Ur Leukocyte Esterase Negative (Negative) 11/23/23 Unknown Impressions Abdomen/Pelvis CT 11/22/23 22:05 Exam(s): CT ABDOMEN + PELVIS With Contrast IV Amt: 90 ml opti 320 EXAM: CT Abdomen and Pelvis With Intravenous Contrast CLINICAL HISTORY: Reason for exam: abd pain, elevated WBC. TECHNIQUE: Axial computed tomography images of the abdomen and pelvis with intravenous contrast. Automated exposure control was utilized for the study. A dose lowering technique was utilized adhering to the principles of ALARA. CONTRAST: Patient received 90 ml opti 320 of IV contrast COMPARISON: No relevant prior studies available. FINDINGS: Lung bases: No consolidation. ABDOMEN: Liver: No mass. Gallbladder and bile ducts: There are gallstones noted within the gallbladder.. No ductal dilation. Pancreas: No mass. No ductal dilation. Spleen: No splenomegaly. Adrenals: No mass. Kidneys and ureters: No hydronephrosis. There are rounded lucencies in both kidneys. Stomach and bowel: There is a small hiatal hernia. The stomach is distended containing fluid and air. There are markedly distended loops of mid small bowel. There is air and stool noted in the colon. There are diverticula present on the colon. No significant inflammatory changes are noted. PELVIS: Appendix: The appendix is not visualized.. Bladder: No calculi are noted within the bladder.. Reproductive: Patient appears to be status post hysterectomy.. ABDOMEN and PELVIS: Intraperitoneal space: No free air. No significant fluid collection. Bones/joints: There are degenerative changes in the spine. There is a grade 1 spondylolisthesis of L3 on L4. Soft tissues: Unremarkable. Vasculature: No abdominal aortic aneurysm. Lymph nodes: No enlarged lymph nodes. IMPRESSION: There are markedly distended loops of mid small bowel. This is compatible with a partial high-grade small bowel obstruction. Small hiatal hernia. Cholelithiasis. Diverticulosis. There are possible bilateral renal cysts. See discussion above Electronically signed by: Onel Carreon MD 11/23/23 00:01 AM Code Status & VTE Plan Code Status Full code VTE Prophylaxis Plan VTE Prophylaxis will be ordered: Yes PG Care Time/CCT Total # of Minutes Spent Total Time Spent with Patient: Total time spent is greater than 50% in coordination of care (as documented) at patient's floor/unit and/or counseling patient: Coding Level of Care Code 26882 INT INP/OBS CARE 3/75MIN Diagnoses Small bowel obstruction K56.609 Hypertension I10 Asthma J45.909 Hiatal hernia K44.9
[2023-11-23] MEDS: NSS + 20MEQ KCL 20 MEQ/1,000 ML BAG IV SCH (01:18)
[2023-11-23] MEDS: 4.5GM X1 IV STA (01:18)
[2023-11-23] MEDS ORDERED: LEVALBUTEROL TARTRATE 15 GM HFA.AER.AD INH PRN (01:56)
[2023-11-23] MEDS: PANTOprazole 40 MG in SYRINGE 0 ML IV ONE (02:12)
[2023-11-23] MEDS: MoRPHine SULFATE 2 MG/ML CARP IV PRN (02:38)
[2023-11-23] MEDS: ONDANSETRON INJ 2 MG/ML 2 ML VIAL IV PRN (03:07)
[2023-11-23] MEDS: ACETAMINOPHEN 1,000 MG/100 ML VIAL IV PRN (03:41)
[2023-11-23] MEDS: PIPERACILLIN/TAZOBACTAM 4.5 GM/100 ML BAG IV SCH (06:12)
--- NOTE | 2023-11-23 06:55 | XRay Report ---
KUB HISTORY: Status post placement of an enteric tube. Small bowel obstruction. NG tube placement COMPARISON: CT 11/22/2023 FINDINGS: Contrast noted within the renal collecting systems. Distal tip enteric tube projects over t he gastric body. There is persistent small bowel dilation compatible with obstruction. The imaged low er chest is unremarkable. No pneumoperitoneum or pneumatosis. No fracture. IMPRESSION: 1. Distal tip of enteric tube projects over the gastric body. 2. Persistent small bowel obstruction. ACT 112: Negative or not required by law. The above report was generated using voice recognition software. It may contain grammatical, syntax o r spelling errors. Electronically signed by: Reilly Valera M.D. 11/23/2023 6:54 AM
--- NOTE | 2023-11-23 09:57 | Surgery Consultation ---
Date of Consultation November 23, 2023 Assessment & Plan (1) Small bowel obstruction: 78 yo female with history of sigmoid resection in 2017 for perforated diverticulitis with SBO in 2021 and 2022 presented to ed with abdominal pain , nausea and vomiting. CT scan showing high grade partial SBO . NGT with 600 cc output. Abdomen distended but soft and tender in bilateral lower abdomen without peritonitis. Mild leukocytosis of 12k but hemodynamically stable Plan: Recommend conservative management: NPO, NGT for decompression, pain management as needed, antiemetics as needed, encourage ambulation, can clamp NGT to ambulate to increase GI motility continue medical management will follow along Dr. Jones has seen and examined pt, agrees with above. History of Present Illness Reason for Consultation: SBO Attending Physician: Arely Etienne MD History of Present Illness Sherlyn is a 78 year-old female with history of HTN, asthma, Edith thyroiditis, history of sigmoid resection for perforated diverticulitis in 2016 with subsequent SBO in 2021 and 2022 treated conservatively with NGT decompression and bowel rest presented to ED with increasing abdominal pain, nausea, and vomiting that started on Wednesday. Similar to prior SBOs. Has not passed any gas and or bowel movement since yesterday morning. Feeling nauseated now, still having pain but not as bad as the nausea. Allergies Allergy/AdvReac Type Severity Reaction Status Date / Time sulfasalazine Allergy Intermediate Difficulty Verified 11/22/23 23:42 Breathing droperidol [From Inapsine] Allergy Mild Agitated Verified 11/22/23 23:42 prochlorperazine AdvReac Intermediate spasm Verified 11/22/23 23:30 [From Compazine] fluconazole AdvReac Mild Vomiting Verified 11/22/23 23:42 meperidine [From Demerol] AdvReac Mild Anxiety Verified 11/22/23 23:42 albuterol AdvReac Tachycardia Verified 11/22/23 23:42 [From Proventil HFA] Home Medications Medication Instructions Recorded Confirmed Type levalbuterol tartrate 45 2 puff inhalation Q4 PRN Shortness 11/22/23 11/22/23 History mcg/actuation aerosol inhaler Of Breath Or Wheezing lisinopril 10 mg tablet 10 mg PO BID 11/22/23 11/22/23 History Patient History Social History Smoking Status: Never smoker Hx Alcohol Use: No Hx Substance Use: No Preferred Language: Romanian Communication Ability: Effective 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 Beliefs That Will Affect Care: None Current Living Situation: Alone Feels Safe at Home: Yes Assistive Devices: Glasses Review of Systems Review of Systems: All systems reviewed & are unremarkable except as noted in HPI & below Physical Exam Constitutional: WD/WN, vitals as above cooperative; no acute distress, not ill appearing and + uncomfortable not in distress but looks uncomfortable due to nausea Respiratory: normal respiratory effort, lungs clear to auscultation Cardiovascular: RRR, no murmur, no edema Gastrointestinal (Abdomen): Inspection/Auscultation: abdomen normal to inspection and + abdominal surgical scar (midline laparotomy); abdomen not distended and + abnormal bowel sounds Percussion/Palpation: + abdomen tender (lower abdomen bilaterally) and abdomen soft; no guarding, abdomen not rigid and abdomen not firm NGT with clear output in cannister Skin: no rashes, warm and dry Psychiatric: Orientation: alert and oriented x 3 Results & Data Vital Signs (Past 12 Hours) Vital Signs Pulse Pulse Resp BP BP Pulse Ox O2 Del Method 11/23/23 07:16 64 11/23/23 07:16 65 19 157/76 H 95 Room Air 11/23/23 05:00 60 18 169/84 H 94 Room Air 11/23/23 02:06 65 17 92 11/23/23 02:00 160/81 H 11/23/23 01:52 66 11/23/23 01:27 70 20 94 11/23/23 01:00 188/85 H 11/23/23 01:00 188/85 H 11/23/23 01:00 99 11/23/23 00:39 193/104 H 11/23/23 00:15 74 23 97 11/23/23 00:03 74 17 90 11/23/23 00:00 168/85 H 11/23/23 00:00 168/85 H 11/22/23 23:42 71 26 H 92 11/22/23 23:39 77 22 96 11/22/23 23:19 140/93 11/22/23 23:19 140/93 11/22/23 22:30 126/55 L 11/22/23 22:24 72 26 H 98 11/22/23 22:00 68 19 92 11/22/23 22:00 158/87 H Laboratory Results 11/23/23 11/22/23 11/22/23 Range/Units Unknown 22:18 21:19 WBC 12.67 H (4.8-10.8) K/ul RBC 4.58 (4.20-5.40) M/uL Hgb 14.2 (12.0-16.0) g/dl Hct 39.7 (37.0-47.0) % MCV 86.7 (80.0-100.0) fL MCH 31.0 (25.0-34.0) pg MCHC 35.8 (32.0-36.0) g/dL RDW Std Deviation 38.6 (36.4-46.3) fL RDW Coeff of Pineda 12.2 (11.5-14.5) % Plt Count 252 (130-400) K/uL MPV 10.3 (9.4-12.4) fL Immature Gran % (Auto) 0.3 % Neut % (Auto) 80.8 % Lymph % (Auto) 12.9 % [place] % (Auto) 5.4 % Eos % (Auto) 0.4 % Baso % (Auto) 0.2 % Neut # (Auto) 10.24 H (1.40-6.50) K/uL Lymph # (Auto) 1.63 (1.20-3.40) K/uL [place] # (Auto) 0.69 H (0.11-0.59) K/uL Eos # (Auto) 0.05 (0.00-0.50) K/uL Baso # (Auto) 0.02 (0.00-0.20) K/uL Immature Gran # (Auto) 0.04 (0.01-0.20) K/uL Sodium 131 L TNP Potassium 4.1 TNP Chloride 97 L (98-107) mmol/L Carbon Dioxide 22 (21-32) mmol/L Anion Gap TNP BUN 16 (6-23) mg/dl Creatinine 0.56 L (0.6-1.2) mg/dl Est Cr Clr Drug Dosing 62.4 ml/min Est GFR ( Amer) 103.5 ml/min Est GFR (Non-Af Amer) 89.3 ml/min BUN/Creatinine Ratio 28.6 H (10-20) Glucose 138 H (70-99(Fasting)) mg/dl Calcium 9.8 (8.6-10.3) mg/dl Total Bilirubin 0.8 (0.2-1.0) mg/dl AST 23 TNP ALT 16 (7-52) U/L Alkaline Phosphatase 83 (34-104) U/L Total Protein 7.4 (6.0-8.3) gm/dl Albumin 4.5 (3.4-5.0) gm/dl Globulin 2.9 (2.5-4.0) gm/dl Albumin/Globulin Ratio 1.6 (0.9-2) Lipase 16 (11-82) U/L Urine Color Yellow Urine Appearance Clear (Clear) Urine pH 8.5 H (4.5-7.5) Ur Specific [place] > 1.045 H (1.000-1.030) Urine Protein Negative (Negative) Urine Glucose (UA) Negative (Negative) Urine Ketones 1+ H (Negative) Urine Blood Negative (Negative) Urine Nitrite Negative (Negative) Urine Bilirubin Negative (Negative) Urine Urobilinogen Negative (Negative) Ur Leukocyte Esterase Negative (Negative) Diagnostic Findings Exam(s): CT ABDOMEN + PELVIS With Contrast IV Amt: 90 ml opti 320 EXAM: CT Abdomen and Pelvis With Intravenous Contrast CLINICAL HISTORY: Reason for exam: abd pain, elevated WBC. TECHNIQUE: Axial computed tomography images of the abdomen and pelvis with intravenous contrast. Automated exposure control was utilized for the study. A dose lowering technique was utilized adhering to the principles of ALARA. CONTRAST: Patient received 90 ml opti 320 of IV contrast COMPARISON: No relevant prior studies available. FINDINGS: Lung bases: No consolidation. ABDOMEN: Liver: No mass. Gallbladder and bile ducts: There are gallstones noted within the gallbladder.. No ductal dilation. Pancreas: No mass. No ductal dilation. Spleen: No splenomegaly. Adrenals: No mass. Kidneys and ureters: No hydronephrosis. There are rounded lucencies in both kidneys. Stomach and bowel: There is a small hiatal hernia. The stomach is distended containing fluid and air. There are markedly distended loops of mid small bowel. There is air and stool noted in the colon. There are diverticula present on the colon. No significant inflammatory changes are noted. PELVIS: Appendix: The appendix is not visualized.. Bladder: No calculi are noted within the bladder.. Reproductive: Patient appears to be status post hysterectomy.. ABDOMEN and PELVIS: Intraperitoneal space: No free air. No significant fluid collection. Bones/joints: There are degenerative changes in the spine. There is a grade 1 spondylolisthesis of L3 on L4. Soft tissues: Unremarkable. Vasculature: No abdominal aortic aneurysm. Lymph nodes: No enlarged lymph nodes. IMPRESSION: There are markedly distended loops of mid small bowel. This is compatible with a partial high-grade small bowel obstruction. Small hiatal hernia. Cholelithiasis. Diverticulosis. There are possible bilateral renal cysts. See discussion above
--- NOTE | 2023-11-23 12:03 | XRay Report ---
KUB CLINICAL HISTORY: Enteric tube placement. FINDINGS: An AP, portable, upright view of the lower chest and upper abdomen is compared to study per formed earlier the same day 11/23/2023. Correlation is made with abdominal CT dated 11/22/2023. An ente lou tube is in place. The tip projects below the diaphragm over the proximal to mid stomach. Distende d loops of bowel in the upper abdomen indicate persistent obstruction. No intraperitoneal free air is seen below the diaphragm. The lung bases are clear as imaged. There are no abnormal abdominal calcif ications. The skeletal structures are osteopenic and appear intact. IMPRESSION: 1. An enteric tube is in place as above. 2. Persistent small bowel obstruction. Electronically signed by: Patrice Awad M.D. 11/23/2023 12:01 PM
[2023-11-23] MEDS: PANTOprazole 40 MG in SYRINGE 0 ML IV SCH (12:18)
[2023-11-23] MEDS: SODIUM CHLORIDE 0.9% 1,000 ML IV SCH (13:52)
--- NOTE | 2023-11-23 14:29 | Communication Note ---
Date of Service: November 23, 2023 Patient is seen and examined at bedside States having an episode of nausea associated with vomiting this morning Also reports some abdominal pain Last bowel movement yesterday a.m. Denies any chest pain, dyspnea No other complaints Physical Exam: Vitals signs as noted above General Appearance:Moderately built and nourished, no apparent distress Head: normocephalic, Atraumatic Eyes: normal inspection, EOMI Neck: supple, Trachea midline Respiratory/Chest: Normal breath sounds, CTA, No accessory muscle use Cardiovascular: S1, S2, No murmur Abdomen/GI:Soft, mild general tender, no audible bowel sounds, no guarding or rigidity Extremities/Musculoskeletal:normal inspection, no edema Neurologic/Psych:AAOX3, grossly no focal neurological deficits Skin: normal color, warm Small bowel obstruction H/O multiple SBO's in the past H/O hiatal hernia --CT ABD:here are markedly distended loops of mid small bowel. This is compatib le with a partial high-grade small bowel obstruction. Small hiatal hernia. Cholelithiasis.Diverticulosis. Continue NG tube, bowel rest, IV fluids Pain control as needed Surgery on board Encouraged to ambulate Leukocytosis Likely reactive Empirically on Zosyn Monitor CBC Consider to discontinue antibiotics if infectious workup negative Hyponatremia Likely due to dehydration Continue IV fluids Monitor sodium levels HTN Hold p.o. 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
--- NOTE | 2023-11-23 21:04 | Electrocardiogram Report ---
Test Reason : Blood Pressure : */* mmHG Vent. Rate : 69 BPM Atrial Rate : 69 BPM P-R Int : 156 ms QRS Dur : 88 ms QT Int : 414 ms P-R-T Axes : -11 -10 -14 degrees QTcB Int : 443 ms Normal sinus rhythm Possible Inferior infarct , age undetermined Abnormal ECG No previous ECGs available Confirmed by Dewey Paulino ([id number]) on 11/23/2023 9:04:50 PM Referred By: REFERRED SELF Confirmed By: Dewey Paulino
[2023-11-23] MEDS ORDERED: Nursing to Pharmacy Communication SCH (21:45)
[2023-11-24] MEDS: KETOROLAC TROMETHAMINE 15 MG/ML VIAL IV ONE (03:58)
[2023-11-24] MEDS: bisacodyL 10 MG SUPP PR STA (05:57)
[2023-11-24 08:45] LABS: Hematocrit (blood only) 35.4 % (37.0-47.0); Hemoglobin 12.3 g/dl (12.0-16.0); Mean Corpuscular Hemoglobin 30.7 pg (25.0-34.0); Mean Corpuscular Hgb Conc 34.7 g/dL (32.0-36.0); Mean Corpuscular Volume 88.3 fL (80.0-100.0); Mean Platelet Volume 10.1 fL (9.4-12.4); Platelet Count 196 K/uL (130-400); RDW Coefficient of Variation 12.4 % (11.5-14.5); RDW Standard Deviation 40.2 fL (36.4-46.3); Red Blood Count 4.01 M/uL (4.20-5.40); White Blood Count 7.22 K/ul (4.8-10.8)
[2023-11-24 08:58] LABS: BUN Creatinine Ratio 17.2 (10-20); Calcium 8.2 mg/dl (8.6-10.3); Creatinine Clr Calc Pharmacy 60.3 ml/min; Est GFR (African American) 102.3 ml/min; Est GFR (Non-African American) 88.3 ml/min; Magnesium 1.8 mg/dl (1.7-2.4); Potassium 3.7 mmol/L (3.5-5.1)
[2023-11-24 09:12] LABS: Estimated Average Glucose 131 mg/dl; Hemoglobin A1C 6.2 % (4.5-5.6)
--- NOTE | 2023-11-24 10:36 | Surgery Progress Note ---
Date of Service November 24, 2023 Assessment & Plan (1) Small bowel obstruction: Plan: keep NG in place IVF ambulate slow progress Admission and Anticipated Discharge Date Admission Date: November 23, 2023 Subjective replaced NG last night feels better a little flatus NG bilious Review of Systems Constitutional: no fever and no chills Respiratory: no cough and no dyspnea Cardiovascular: no chest pain Gastrointestinal: + abdominal pain, + nausea and + change in bowel habits; no vomiting Genitourinary: no dysuria Musculoskeletal: no back pain Integumentary: no problem reported Neurologic: no localized weakness and no generalized weakness Psychiatric: no behavioral changes Physical Exam Constitutional: WD/WN, vitals as above Eyes: PERRL, conjunctivae normal, anicteric sclerae Neck: trachea midline Respiratory: normal respiratory effort, lungs clear to auscultation Cardiovascular: RRR, no murmur, no edema Gastrointestinal (Abdomen): Inspection/Auscultation: abdomen normal to inspection, + abdomen distended and normal bowel sounds Percussion/Palpation: + abdomen tender and abdomen soft; no guarding and abdomen not rigid Musculoskeletal: Head/Neck/Chest: normocephalic and head atraumatic Skin: no rashes, warm and dry Results & Data Vital Signs (Past 12 Hours) Vital Signs Temp Pulse Resp BP Pulse Ox O2 Del Method 11/24/23 08:11 37.0 C 67 16 175/71 H 96 Room Air
--- NOTE | 2023-11-24 15:31 | Hospitalist Progress Note ---
Date of Service November 24, 2023 Assessment & Plan (1) Small bowel obstruction: (2) Hypertension: (3) Asthma: (4) Hiatal hernia: Plan Small bowel obstruction History of sigmoid resection secondary to bowel perforation in 2017 Multiple episodes of small bowel obstruction, most recently in 2021 and [address] scan on admission showing partial high-grade small bowel obstruction Surgery on board; Continue NPO, NG tube to low intermittent suction Antiemetics as needed Acetaminophen 1 g IV every 8 hours as needed for mild pain or fever Morphine sulfate 2 mg IV every 3 hours as needed for moderate to severe pain Pantoprazole 40 mg IV daily continue iv fluids Asthma- Continue levalbuterol HFA 2 puffs every 4 hours as needed Hypertension- Hold lisinopril 10 mg p.o. twice daily Hydralazine 10 mg IV every 6 hours as needed for systolic blood pressure above 170 Hiatal hernia- Pantoprazole 40 mg IV daily Full code DVT prophylaxisheparin Please note the above document was generated using voice recognition software. It may contain grammatical, syntax or spelling errors. Any formal questions or concerns about the content, text or information contained within the body of this dictation should be directly addressed to the provider for clarification Admission and Anticipated Discharge Date Admission Date: November 23, 2023 Subjective Patient seen and examined at bedside. She is comfortable; not in distress. NG tube continues to have bilious output Review of Systems Review of Systems: All systems reviewed & are unremarkable except as noted in Subjective Physical Exam Physical Exam: Constitutional: WD/WN, vitals as above, NAD, sitting up in bed, pleasant, conversing easily Respiratory: normal respiratory effort, lungs clear to auscultation, no wheeze, rales, rhonchi. Normal insp/exp effort, no accessory muscle use Cardiovascular: RRR, no murmur, no edema Vessels: no JVD or carotid bruit Chest: normal inspection of chest Abdomen: Slightly distended, nontender. Musculoskeletal: no cyanosis or clubbing, extremities motor strength 5/5 Skin: no rashes, warm and dry normal turgor Neurologic: PERRL, EOMI, accommodation nl, no face palsy, no dysarthria CN's II- XI intact bilaterally and moves all extremities Psychiatric: A+Ox3, euthymic affect Results & Data Results & Data Vital Signs (Past 12 Hours) Vital Signs Temp Pulse Resp BP Pulse Ox O2 Del Method 11/24/23 08:11 37.0 C 67 16 175/71 H 96 Room Air
[2023-11-24] MEDS: D5W AND NSS 1,000 ML IV SCH (16:53)
[2023-11-24] MEDS: HEPARIN SOD 5,000 UNIT/0.5 ML VIAL SQ SCH (20:20)
[2023-11-25 07:06] LABS: Basophils # (auto) 0.02 K/uL (0.00-0.20); Basophils % (auto) 0.3 %; Eosinophils # (auto) 0.06 K/uL (0.00-0.50); Eosinophils % (auto) 0.8 %; Hematocrit (blood only) 35.9 % (37.0-47.0); Hemoglobin 12.5 g/dl (12.0-16.0); Immature Granulocytes # (auto) 0.01 K/uL (0.01-0.20); Immature Granulocytes % (auto) 0.1 %; Lymphocytes # (auto) 1.52 K/uL (1.20-3.40); Lymphocytes % (auto) 20.6 %; Mean Corpuscular Hemoglobin 30.8 pg (25.0-34.0); Mean Corpuscular Hgb Conc 34.8 g/dL (32.0-36.0); Mean Corpuscular Volume 88.4 fL (80.0-100.0); Monocytes # (auto) 0.66 K/uL (0.11-0.59); Neutrophils % (auto) 69.2 %; Platelet Count 200 K/uL (130-400); RDW Coefficient of Variation 12.2 % (11.5-14.5); RDW Standard Deviation 39.8 fL (36.4-46.3); Red Blood Count 4.06 M/uL (4.20-5.40); White Blood Count 7.37 K/ul (4.8-10.8)
--- NOTE | 2023-11-25 08:51 | Surgery Progress Note ---
Date of Service November 25, 2023 Assessment & Plan (1) Small bowel obstruction: Plan: con't NG until passing flatus, hopefully out in AM feels better hungry, await return of bowel function IVF Admission and Anticipated Discharge Date Admission Date: November 23, 2023 Subjective feels better less pain await bowel function, historical issue with slow transit bowel function ambulating well Review of Systems Constitutional: no fever, no chills and no anorexia Respiratory: no cough and no dyspnea Cardiovascular: no chest pain Gastrointestinal: + abdominal pain and + problem reported (NG in place); no bloating, no nausea and no vomiting Genitourinary: no dysuria Musculoskeletal: no back pain Integumentary: no problem reported Neurologic: no localized weakness and no generalized weakness Psychiatric: no behavioral changes Hematologic / Lymphatic: no easy bleeding and no easy bruising Physical Exam Constitutional: WD/WN, vitals as above Respiratory: normal respiratory effort, lungs clear to auscultation Cardiovascular: RRR, no murmur, no edema Gastrointestinal (Abdomen): Inspection/Auscultation: abdomen normal to inspection, + abdomen distended and normal bowel sounds Percussion/Palpation: + abdomen tender and abdomen soft; no guarding and abdomen not rigid Musculoskeletal: Head/Neck/Chest: normocephalic and head atraumatic Skin: no rashes, warm and dry Results & Data Vital Signs (Past 12 Hours) Vital Signs Temp Pulse Resp BP BP Pulse Ox O2 Del Method 11/25/23 07:06 37.0 C 67 16 170/74 H 97 Room Air 11/24/23 23:19 36.8 C 75 174/75 H 96 Room Air 11/24/23 21:58 156/75 H
[2023-11-25 08:55] LABS: Calcium 8.4 mg/dl (8.6-10.3); Potassium 3.2 mmol/L (3.5-5.1)
[2023-11-25 09:01] LABS: Creatinine Clr Calc Pharmacy 77.7 ml/min; Est GFR (African American) 111.2 ml/min
--- NOTE | 2023-11-25 15:04 | Hospitalist Progress Note ---
Date of Service November 25, 2023 Assessment & Plan (1) Small bowel obstruction: (2) Hypertension: (3) Asthma: (4) Hiatal hernia: Plan Small bowel obstruction History of sigmoid resection secondary to bowel perforation in 2017 Multiple episodes of small bowel obstruction, most recently in 2021 and [address] scan on admission showing partial high-grade small bowel obstruction Surgery on board; Continue NPO, NG tube to low intermittent suction. to be reevaluated in am Antiemetics as needed Acetaminophen 1 g IV every 8 hours as needed for mild pain or fever Morphine sulfate 2 mg IV every 3 hours as needed for moderate to severe pain Pantoprazole 40 mg IV daily continue iv fluids; potassium added to iv fluids Asthma- Continue levalbuterol HFA 2 puffs every 4 hours as needed Hypertension- Hold lisinopril 10 mg p.o. twice daily Hydralazine 10 mg IV every 6 hours as needed for systolic blood pressure above 170 Hiatal hernia- Pantoprazole 40 mg IV daily Full code DVT prophylaxisheparin Please note the above document was generated using voice recognition software. It may contain grammatical, syntax or spelling errors. Any formal questions or concerns about the content, text or information contained within the body of this dictation should be directly addressed to the provider for clarification Admission and Anticipated Discharge Date Admission Date: November 23, 2023 Subjective Patient seen and examined at bedside. NG tube continues to have bilious output Patient has not passed flatus/no bowel movement Ambulating in the hallways Review of Systems Review of Systems: All systems reviewed & are unremarkable except as noted in Subjective Physical Exam Physical Exam: Constitutional: WD/WN, vitals as above, NAD, sitting up in bed, pleasant, conversing easily Respiratory: normal respiratory effort, lungs clear to auscultation, no wheeze, rales, rhonchi. Normal insp/exp effort, no accessory muscle use Cardiovascular: RRR, no murmur, no edema Vessels: no JVD or carotid bruit Chest: normal inspection of chest Abdomen: Slightly distended, nontender. Musculoskeletal: no cyanosis or clubbing, extremities motor strength 5/5 Skin: no rashes, warm and dry normal turgor Neurologic: PERRL, EOMI, accommodation nl, no face palsy, no dysarthria CN's II- XI intact bilaterally and moves all extremities Psychiatric: A+Ox3, euthymic affect Results & Data Results & Data Vital Signs (Past 12 Hours) Vital Signs Temp Pulse Resp BP Pulse Ox O2 Del Method 11/25/23 07:06 37.0 C 67 16 170/74 H 97 Room Air
[2023-11-25] MEDS: D5NSS + 20MEQ KCL 20 MEQ/1,000 ML BAG IV SCH (15:34)
[2023-11-25] MEDS: bisacodyL 10 MG SUPP PR STA ×2 (19:19→22:26)
[2023-11-25] MEDS: bisacodyL 10 MG SUPP PR PRN (21:34)
[2023-11-25] MEDS: CHLORASEPTIC (PHENOL) 1.4% SOLN 180 ML BTL MT PRN (22:36)
[2023-11-26 08:21] LABS: Basophils # (auto) 0.03 K/uL (0.00-0.20); Basophils % (auto) 0.4 %; Eosinophils # (auto) 0.17 K/uL (0.00-0.50); Eosinophils % (auto) 2.3 %; Hematocrit (blood only) 38.7 % (37.0-47.0); Immature Granulocytes # (auto) 0.02 K/uL (0.01-0.20); Immature Granulocytes % (auto) 0.3 %; Lymphocytes # (auto) 2.18 K/uL (1.20-3.40); Lymphocytes % (auto) 30.1 %; Mean Corpuscular Hemoglobin 30.1 pg (25.0-34.0); Mean Corpuscular Hgb Conc 33.6 g/dL (32.0-36.0); Mean Corpuscular Volume 89.6 fL (80.0-100.0); Mean Platelet Volume 9.8 fL (9.4-12.4); Monocytes # (auto) 0.65 K/uL (0.11-0.59); Neutrophils # (auto) 4.19 K/uL (1.40-6.50); Neutrophils % (auto) 57.9 %; Platelet Count 221 K/uL (130-400); RDW Coefficient of Variation 12.3 % (11.5-14.5); Red Blood Count 4.32 M/uL (4.20-5.40); White Blood Count 7.24 K/ul (4.8-10.8)
[2023-11-26 09:26] LABS: BUN Creatinine Ratio 20.4 (10-20); Calcium 8.5 mg/dl (8.6-10.3); Creatinine Clr Calc Pharmacy 71.3 ml/min; Est GFR (African American) 108.2 ml/min; Est GFR (Non-African American) 93.3 ml/min; Potassium 3.5 mmol/L (3.5-5.1)
--- NOTE | 2023-11-26 10:38 | XRay Report ---
KUB CLINICAL HISTORY: Follow up on SBO COMPARISON STUDY: CT of the abdomen and pelvis November 22, 2023. KUB November 23, 2023. FINDINGS: The nasogastric tube has been removed. There are multiple loops of moderately dilated small bowel which measure up to 5.5 cm in caliber. Although sensitivity is diminished on supine exam, ther e is no evidence for free air. IMPRESSION: Persistent small bowel obstruction. ACT 112: Negative or not required by law. Electronically signed by: Franki Palomo M.D. 11/26/2023 10:37 AM
[2023-11-26] MEDS: POLYETHYLENE (MIRALAX) 17 GM PACK PO STA (11:50)
[2023-11-26] MEDS: DOCUSATE SODIUM 100 MG CAP PO SCH (11:51)
--- NOTE | 2023-11-26 12:03 | Surgery Progress Note ---
Date of Service November 26, 2023 Assessment & Plan (1) Small bowel obstruction: Plan: Had small bowel movement this am Discussed NGT clamp trial vs removing NGT and starting liquids with miralax and colace. Discussed possibility of need to replace NGT if she were to develop nausea, pain, or any vomiting. She understood and wants NGT removed. Continue to ambulate continue medical management [facility] covering the weekend. Admission and Anticipated Discharge Date Admission Date: November 23, 2023 Subjective feeling better no further abdominal pain, does not feel bloated passed small formed bowel movement last night after suppository but not passing much gas takes stool softener twice a day at home, really feels as though she needs medication to help move her bowels. really wants NGT removed, hungry and wants liquids Physical Exam Constitutional: WD/WN, vitals as above cooperative and comfortable; no acute distress Respiratory: normal respiratory effort; no respiratory distress Gastrointestinal (Abdomen): Inspection/Auscultation: abdomen normal to inspection, + abdomen distended (mild) and + abdominal surgical scar (midline laparotomy scar) Percussion/Palpation: abdomen soft; abdomen nontender, no guarding and abdomen not rigid Skin: no rashes, warm and dry Psychiatric: Orientation: alert and oriented x 3 Results & Data Vital Signs (Past 12 Hours) Vital Signs Temp Pulse Resp BP Pulse Ox O2 Del Method 11/26/23 07:45 36.7 C 70 18 152/73 H 97 Room Air Laboratory Results 11/26/23 Range/Units 07:54 WBC 7.24 (4.8-10.8) K/ul RBC 4.32 (4.20-5.40) M/uL Hgb 13.0 (12.0-16.0) g/dl Hct 38.7 (37.0-47.0) % MCV 89.6 (80.0-100.0) fL MCH 30.1 (25.0-34.0) pg MCHC 33.6 (32.0-36.0) g/dL RDW Std Deviation 40.0 (36.4-46.3) fL RDW Coeff of [place]ined[place] 12.3 (11.5-14.5) % Plt Count 221 (130-400) K/uL MPV 9.8 (9.4-12.4) fL Immature Gran % (Auto) 0.3 % Neut % (Auto) 57.9 % Lymph % (Auto) 30.1 % [place] % (Auto) 9.0 % Eos % (Auto) 2.3 % Baso % (Auto) 0.4 % Neut # (Auto) 4.19 (1.40-6.50) K/uL Lymph # (Auto) 2.18 (1.20-3.40) K/uL [place] # (Auto) 0.65 H (0.11-0.59) K/uL Eos # (Auto) 0.17 (0.00-0.50) K/uL Baso # (Auto) 0.03 (0.00-0.20) K/uL Immature Gran # (Auto) 0.02 (0.01-0.20) K/uL Sodium 139 (136-145) mmol/L Potassium 3.5 (3.5-5.1) mmol/L Chloride 107 (98-107) mmol/L Carbon Dioxide 26 (21-32) mmol/L Anion Gap 6 (3-11) BUN 10 (6-23) mg/dl Creatinine 0.49 L (0.6-1.2) mg/dl Est Cr Clr Drug Dosing 71.3 ml/min Est GFR ( Amer) 108.2 ml/min Est GFR (Non-Af Amer) 93.3 ml/min BUN/Creatinine Ratio 20.4 H (10-20) Glucose 112 H (70-99(Fasting)) mg/dl Calcium 8.5 L (8.6-10.3) mg/dl
--- NOTE | 2023-11-26 13:48 | Hospitalist Progress Note ---
Date of Service November 26, 2023 Assessment & Plan (1) Small bowel obstruction: (2) Hypertension: (3) Asthma: (4) Hiatal hernia: Plan Small bowel obstruction History of sigmoid resection secondary to bowel perforation in 2017 Multiple episodes of small bowel obstruction, most recently in 2021 and [address] scan on admission showing partial high-grade small bowel obstruction Repeat KUB on 11/25persistent small bowel obstruction Patient discussed with surgery; removed her NG tube. Started on clear liquid diet as per surgery. Discussed with patient in length about replacing the peripheral IV line; patient refused to have a new IV line placed. Acetaminophen 1 g IV every 8 hours as needed for mild pain or fever Morphine sulfate 2 mg IV every 3 hours as needed for moderate to severe pain Pantoprazole 40 mg IV daily continue iv fluids; potassium added to iv fluids Asthma- Continue levalbuterol HFA 2 puffs every 4 hours as needed Hypertension- Hold lisinopril 10 mg p.o. twice daily Hydralazine 10 mg IV every 6 hours as needed for systolic blood pressure above 170 Hiatal hernia- Pantoprazole 40 mg IV daily Full code DVT prophylaxisheparin Please note the above document was generated using voice recognition software. It may contain grammatical, syntax or spelling errors. Any formal questions or concerns about the content, text or information contained within the body of this dictation should be directly addressed to the provider for clarification Admission and Anticipated Discharge Date Admission Date: November 23, 2023 Subjective Patient seen and examined at bedside. She denies abdominal pain or discomfort Denies nausea No significant events overnight Review of Systems Review of Systems: All systems reviewed & are unremarkable except as noted in Subjective Physical Exam Physical Exam: Constitutional: WD/WN, vitals as above, NAD, sitting up in bed, pleasant, conversing easily Respiratory: normal respiratory effort, lungs clear to auscultation, no wheeze, rales, rhonchi. Normal insp/exp effort, no accessory muscle use Cardiovascular: RRR, no murmur, no edema Vessels: no JVD or carotid bruit Chest: normal inspection of chest Abdomen: Slightly distended, nontender. Musculoskeletal: no cyanosis or clubbing, extremities motor strength 5/5 Skin: no rashes, warm and dry normal turgor Neurologic: PERRL, EOMI, accommodation nl, no face palsy, no dysarthria CN's II- XI intact bilaterally and moves all extremities Psychiatric: A+Ox3, euthymic affect Results & Data Results & Data Vital Signs (Past 12 Hours) Vital Signs Temp Pulse Resp BP Pulse Ox O2 Del Method 11/26/23 07:45 36.7 C 70 18 152/73 H 97 Room Air
[2023-11-26] MEDS: D5W AND NSS 1,000 ML IV SCH (15:51)
--- NOTE | 2023-11-26 15:58 | XRay Report ---
XR KUB/Abdomen 1 view CLINICAL HISTORY: check NG tube placement TECHNIQUE: 1 view of the abdomen was obtained. Comparison: Comparison is made to abdomen radiograph 11/26/2023 FINDINGS: Enteric tube terminates in the stomach. The osseous structures are grossly unremarkable. Small bowel obstruction is partially seen. Small stool burden is seen. IMPRESSION: Satisfactory position of enteric tube. Redemonstration of small bowel obstruction. ACT 112: Negative or not required by law. Electronically signed by: Geoffrey Tapia M.D. 11/26/2023 3:57 PM
--- NOTE | 2023-11-27 04:56 | Surgery Progress Note ---
Date of Service November 27, 2023 Assessment & Plan (1) Small bowel obstruction: Plan: Patient has been admitted on the hospitalist service. From surgery perspective we recommend the following: Patient initially had NG tube which was removed and diet was advanced however patient had increasing abdominal pain We will keep current NG tube in place until patient has return of bowel function at which time consideration can be given to discontinuing NG tube and readvancing diet beginning with clear liquids Continue intravenous fluids until oral intake can be advanced and is reliable Check a.m. labs when available Subcutaneous heparin is in place for DVT prevention Admission and Anticipated Discharge Date Admission Date: November 23, 2023 Supervising Physician Co-Signing Physician Notes I have seen and examined this patient this a.m. I initially could not find her she was walking in the halls. Patient states she is doing multiple laps although has not passed any flatus as of yet. She does admit that her previous abdominal discomfort prior to NGT reinsertion has resolved. She denies nausea. Patient states she will continue to ambulate today. Continue NPO with NGT suction for ongoing decompression when she is not ambulating. Subjective Patient is resting comfortably in bed. She notes that since NG tube been placed her abdominal distention has improved with less pain. She has not had a bowel movement or flatus since NG tube has been placed. Physical Exam Gastrointestinal (Abdomen): Abdomen is soft with minimal distention. There is no rebound tenderness or guarding. There is minimal pain with palpation. NG tube is in place draining bilious material Results & Data Vital Signs (Past 12 Hours) Vital Signs Temp Pulse Resp BP Pulse Ox O2 Del Method 11/26/23 22:18 37.0 C 67 16 168/71 H 95 Room Air 11/26/23 17:38 158/64 H PG Care Time/CCT Total # of Minutes Spent Total Time Spent with Patient: Total time spent is greater than 50% in coordination of care (as documented) at patient's floor/unit and/or counseling patient: Coding Level of Care Code 59973 SUB INP/OBS CARE 03/25MIN Diagnoses Small bowel obstruction K56.609
[2023-11-27 06:41] LABS: Basophils # (auto) 0.02 K/uL (0.00-0.20); Basophils % (auto) 0.3 %; Eosinophils # (auto) 0.19 K/uL (0.00-0.50); Eosinophils % (auto) 3.2 %; Hemoglobin 11.5 g/dl (12.0-16.0); Immature Granulocytes # (auto) 0.01 K/uL (0.01-0.20); Immature Granulocytes % (auto) 0.2 %; Lymphocytes # (auto) 1.84 K/uL (1.20-3.40); Lymphocytes % (auto) 30.7 %; Mean Corpuscular Hemoglobin 30.6 pg (25.0-34.0); Mean Corpuscular Hgb Conc 34.8 g/dL (32.0-36.0); Mean Corpuscular Volume 87.8 fL (80.0-100.0); Mean Platelet Volume 9.5 fL (9.4-12.4); Monocytes # (auto) 0.59 K/uL (0.11-0.59); Monocytes % (auto) 9.8 %; Neutrophils # (auto) 3.34 K/uL (1.40-6.50); Neutrophils % (auto) 55.8 %; Platelet Count 209 K/uL (130-400); RDW Coefficient of Variation 12.2 % (11.5-14.5); RDW Standard Deviation 39.6 fL (36.4-46.3); Red Blood Count 3.76 M/uL (4.20-5.40); White Blood Count 5.99 K/ul (4.8-10.8)
[2023-11-27 07:07] LABS: BUN Creatinine Ratio 26.2 (10-20); Calcium 8.2 mg/dl (8.6-10.3); Creatinine Clr Calc Pharmacy 83.2 ml/min; Est GFR (African American) 113.8 ml/min; Est GFR (Non-African American) 98.2 ml/min; Potassium 2.9 mmol/L (3.5-5.1)
[2023-11-27] MEDS ORDERED: POLYETHYLENE (MIRALAX) 17 GM PACK PO SCH (09:00)
[2023-11-27] MEDS: POLYETHYLENE (MIRALAX) 17 GM PACK NG SCH (09:26)
[2023-11-27] MEDS: D5NSS + 20MEQ KCL 20 MEQ/1,000 ML BAG IV SCH (09:27)
[2023-11-27] MEDS: POTASSIUM CHLORIDE / WTR 10 MEQ/100 ML PLCT IV SCH (09:27)
[2023-11-27] MEDS: THIAMINE HCL 200 MG in SODIUM CHLORIDE 0.9% 50 ML IV SCH (11:27)
--- NOTE | 2023-11-27 14:29 | Hospitalist Progress Note ---
Date of Service November 27, 2023 Assessment & Plan (1) Small bowel obstruction: (2) Hypertension: (3) Asthma: (4) Hiatal hernia: Plan Small bowel obstruction History of sigmoid resection secondary to bowel perforation in 2017 Multiple episodes of small bowel obstruction, most recently in 2021 and [address] scan on admission showing partial high-grade small bowel obstruction Repeat KUB on 11/25persistent small bowel obstruction Patient had a trial of NG tube removal on 11/25; however started to feel nauseous. NG tube placed again. Patient is n.p.o. Continue IV fluids Acetaminophen 1 g IV every 8 hours as needed for mild pain or fever Morphine sulfate 2 mg IV every 3 hours as needed for moderate to severe pain Pantoprazole 40 mg IV daily Hypokalemia- replete potassium Asthma- Continue levalbuterol HFA 2 puffs every 4 hours as needed Hypertension- Hold lisinopril 10 mg p.o. twice daily Hydralazine 10 mg IV every 6 hours as needed for systolic blood pressure above 170 Hiatal hernia- Pantoprazole 40 mg IV daily Full code DVT prophylaxisheparin Please note the above document was generated using voice recognition software. It may contain grammatical, syntax or spelling errors. Any formal questions or concerns about the content, text or information contained within the body of this dictation should be directly addressed to the provider for clarification Admission and Anticipated Discharge Date Admission Date: November 23, 2023 Subjective Patient seen and examined at bedside She continues to have NG tube draining bilious fluid Denies abdominal pain Has not passed flatus or had a BM Review of Systems Review of Systems: All systems reviewed & are unremarkable except as noted in Subjective Physical Exam Physical Exam: Constitutional: WD/WN, vitals as above, NAD, sitting up in bed, pleasant, conversing easily Respiratory: normal respiratory effort, lungs clear to auscultation, no wheeze, rales, rhonchi. Normal insp/exp effort, no accessory muscle use Cardiovascular: RRR, no murmur, no edema Vessels: no JVD or carotid bruit Chest: normal inspection of chest Abdomen: Slightly distended, nontender. Musculoskeletal: no cyanosis or clubbing, extremities motor strength 5/5 Skin: no rashes, warm and dry normal turgor Neurologic: PERRL, EOMI, accommodation nl, no face palsy, no dysarthria CN's II- XI intact bilaterally and moves all extremities Psychiatric: A+Ox3, euthymic affect Results & Data Results & Data Vital Signs (Past 12 Hours) Vital Signs Temp Pulse Resp BP Pulse Ox O2 Del Method 11/27/23 07:13 36.9 C 63 16 136/73 94 Room Air
--- NOTE | 2023-11-28 04:59 | Surgery Progress Note ---
Date of Service November 28, 2023 Assessment & Plan (1) Small bowel obstruction: Plan: Patient has been admitted on the hospitalist service. From surgery perspective we recommend the following: Patient initially had NG tube which was removed and diet was advanced however patient had increasing abdominal pain requiring NG tube placement on 11/26/2023 We will keep current NG tube in place until patient has return of bowel function Once patient has return of bowel function consideration be given to removing NG tube and advancing diet beginning with clear liquids. Continue intravenous fluids until oral intake can be advanced and is reliable Check a.m. labs when available Subcutaneous heparin is in place for DVT prevention Admission and Anticipated Discharge Date Admission Date: November 23, 2023 Supervising Physician Co-Signing Physician Notes I have seen and examined this patient this a.m, I agree with the above assessment. She again is walking aggressively in the halls and not complaining of any abdominal pain, says she has had no nausea or vomiting with NGT remaining in place. The patient still denies passing any flatus. Her primary consulting surgical team ([facility]) will follow-up in the a.m. for further plan. Subjective Patient is resting comfortably in bed. She notes continued improvement of her abdominal pain that she experienced 2 days ago. She denies any nausea or vomiting with NG tube in place. She denies any BM or flatus since her NG tube has been replaced. Physical Exam Gastrointestinal (Abdomen): Abdomen has minimal distention. There is minimal pain with palpation. There is no rebound tenderness or guarding. NG tube in place draining bilious material Results & Data Vital Signs (Past 12 Hours) Vital Signs Temp Pulse Resp BP Pulse Ox O2 Del Method 11/27/23 19:42 37.4 C 71 18 169/76 H 95 Room Air PG Care Time/CCT Total # of Minutes Spent Total Time Spent with Patient: Total time spent is greater than 50% in coordination of care (as documented) at patient's floor/unit and/or counseling patient: Coding Level of Care Code 99720 SUB INP/OBS CARE 03/25MIN Diagnoses Small bowel obstruction K56.609
[2023-11-28 06:22] LABS: Basophils # (auto) 0.02 K/uL (0.00-0.20); Basophils % (auto) 0.3 %; Eosinophils # (auto) 0.29 K/uL (0.00-0.50); Eosinophils % (auto) 4.9 %; Hematocrit (blood only) 36.1 % (37.0-47.0); Immature Granulocytes # (auto) 0.02 K/uL (0.01-0.20); Immature Granulocytes % (auto) 0.3 %; Lymphocytes % (auto) 32.4 %; Mean Corpuscular Hemoglobin 29.9 pg (25.0-34.0); Mean Corpuscular Hgb Conc 33.2 g/dL (32.0-36.0); Mean Platelet Volume 9.5 fL (9.4-12.4); Monocytes # (auto) 0.57 K/uL (0.11-0.59); Monocytes % (auto) 9.7 %; Neutrophils # (auto) 3.07 K/uL (1.40-6.50); Neutrophils % (auto) 52.4 %; Platelet Count 233 K/uL (130-400); RDW Coefficient of Variation 12.5 % (11.5-14.5); RDW Standard Deviation 41.3 fL (36.4-46.3); Red Blood Count 4.01 M/uL (4.20-5.40); White Blood Count 5.87 K/ul (4.8-10.8)
[2023-11-28 06:40] LABS: BUN Creatinine Ratio 16.7 (10-20); Calcium 8.6 mg/dl (8.6-10.3); Creatinine Clr Calc Pharmacy 64.7 ml/min; Est GFR (African American) 104.8 ml/min; Est GFR (Non-African American) 90.4 ml/min; Potassium 3.5 mmol/L (3.5-5.1)
[2023-11-28] MEDS: bisacodyL 10 MG SUPP PR STA (10:22)
--- NOTE | 2023-11-28 11:23 | Hospitalist Progress Note ---
Date of Service November 28, 2023 Assessment & Plan (1) Small bowel obstruction: (2) Hypertension: (3) Asthma: (4) Hiatal hernia: Plan Small bowel obstruction History of sigmoid resection secondary to bowel perforation in 2017 Multiple episodes of small bowel obstruction, most recently in 2021 and [address] scan on admission showing partial high-grade small bowel obstruction Repeat KUB on 11/25persistent small bowel obstruction Patient had a trial of NG tube removal on 11/25; however started to feel nauseous. NG tube placed again. Patient is n.p.o. Continue IV fluids with potassium Acetaminophen 1 g IV every 8 hours as needed for mild pain or fever Morphine sulfate 2 mg IV every 3 hours as needed for moderate to severe pain Pantoprazole 40 mg IV daily Hypokalemia- replete potassium Asthma- Continue levalbuterol HFA 2 puffs every 4 hours as needed Hypertension- Hold lisinopril 10 mg p.o. twice daily Hydralazine 10 mg IV every 6 hours as needed for systolic blood pressure above 170 Hiatal hernia- Pantoprazole 40 mg IV daily Full code DVT prophylaxisheparin Please note the above document was generated using voice recognition software. It may contain grammatical, syntax or spelling errors. Any formal questions or concerns about the content, text or information contained within the body of this dictation should be directly addressed to the provider for clarification Admission and Anticipated Discharge Date Admission Date: November 23, 2023 Subjective Patient reports that she is feeling much better compared to yesterday Denies any abdominal pain, nausea or vomiting She is ambulating on the hallways No significant events overnight Review of Systems Review of Systems: All systems reviewed & are unremarkable except as noted in Subjective Physical Exam Physical Exam: Constitutional: WD/WN, vitals as above, NAD, sitting up in bed, pleasant, conversing easily Respiratory: normal respiratory effort, lungs clear to auscultation, no wheeze, rales, rhonchi. Normal insp/exp effort, no accessory muscle use Cardiovascular: RRR, no murmur, no edema Vessels: no JVD or carotid bruit Chest: normal inspection of chest Abdomen: Slightly distended, nontender. Musculoskeletal: no cyanosis or clubbing, extremities motor strength 5/5 Skin: no rashes, warm and dry normal turgor Neurologic: PERRL, EOMI, accommodation nl, no face palsy, no dysarthria CN's II- XI intact bilaterally and moves all extremities Psychiatric: A+Ox3, euthymic affect Results & Data Results & Data Vital Signs (Past 12 Hours) Vital Signs Temp Pulse Resp BP Pulse Ox O2 Del Method 11/28/23 07:39 36.8 C 65 16 158/65 H 97 Room Air
--- NOTE | 2023-11-28 12:29 | XRay Report ---
KUB CLINICAL HISTORY: Small bowel obstruction. FINDINGS: An AP, portable, supine abdominal radiograph is compared to study dated 11/26/2023. Correlat ion is made with abdominal CT dated 11/22/2023. An enteric tube is unchanged in position. Distended ga s-filled loops of small bowel measure up to 5.7 cm. This indicates persistent obstruction. No evidenc e of intraperitoneal free air is seen on this supine image. Suture material projects over the pelvis. There are no abnormal abdominal calcifications. The skeletal structures are osteopenic and appear in tact. IMPRESSION: Persistent high-grade small bowel obstruction. Electronically signed by: Patrice Awad M.D. 11/28/2023 12:28 PM
[2023-11-29 07:27] LABS: Basophils # (auto) 0.02 K/uL (0.00-0.20); Basophils % (auto) 0.4 %; Eosinophils # (auto) 0.19 K/uL (0.00-0.50); Eosinophils % (auto) 3.5 %; Hematocrit (blood only) 33.1 % (37.0-47.0); Hemoglobin 11.6 g/dl (12.0-16.0); Immature Granulocytes # (auto) 0.01 K/uL (0.01-0.20); Immature Granulocytes % (auto) 0.2 %; Lymphocytes # (auto) 1.49 K/uL (1.20-3.40); Lymphocytes % (auto) 27.4 %; Mean Corpuscular Hemoglobin 31.1 pg (25.0-34.0); Mean Corpuscular Volume 88.7 fL (80.0-100.0); Mean Platelet Volume 9.6 fL (9.4-12.4); Monocytes # (auto) 0.51 K/uL (0.11-0.59); Monocytes % (auto) 9.4 %; Neutrophils # (auto) 3.22 K/uL (1.40-6.50); Neutrophils % (auto) 59.1 %; Platelet Count 221 K/uL (130-400); RDW Coefficient of Variation 12.6 % (11.5-14.5); RDW Standard Deviation 40.9 fL (36.4-46.3); Red Blood Count 3.73 M/uL (4.20-5.40); White Blood Count 5.44 K/ul (4.8-10.8)
[2023-11-29 07:50] LABS: Calcium 8.5 mg/dl (8.6-10.3); Creatinine Clr Calc Pharmacy 69.9 ml/min; Est GFR (African American) 107.4 ml/min; Est GFR (Non-African American) 92.7 ml/min; Potassium 3.4 mmol/L (3.5-5.1)
[2023-11-29] MEDS: POTASSIUM CHLORIDE / WTR 10 MEQ/100 ML PLCT IV SCH (09:19)
--- NOTE | 2023-11-29 12:31 | Surgery Progress Note ---
Date of Service November 29, 2023 Assessment & Plan (1) Small bowel obstruction: Plan: slow resolution con't ngt one more day ambulate Admission and Anticipated Discharge Date Admission Date: November 23, 2023 Subjective no N/V await bowel function no pain Review of Systems Constitutional: no fever and no chills Respiratory: no cough and no dyspnea Cardiovascular: no chest pain Gastrointestinal: + change in bowel habits; no abdominal p ain, no nausea and no vomiting Genitourinary: no dysuria Neurologic: no localized weakness and no generalized weakness Psychiatric: no behavioral changes Physical Exam Constitutional: WD/WN, vitals as above Neck: trachea midline Respiratory: normal respiratory effort, lungs clear to auscultation Cardiovascular: RRR, no murmur, no edema Gastrointestinal (Abdomen): Inspection/Auscultation: abdomen normal to inspe ction and normal bowel sounds; abdomen not distended Percussion/Palpation: abdomen soft; abdomen nontender, no guarding and abdomen not rigid Musculoskeletal: Head/Neck/Chest: normocephalic and head atraumatic Skin: no rashes, warm and dry Results & Data Vital Signs (Past 12 Hours) Vital Signs Temp Pulse Resp BP Pulse Ox O2 Del Method 11/29/23 07:17 36.7 C 65 16 160/77 H 96 Room Air
[2023-11-29] MEDS ORDERED: ACETAMINOPHEN 1,000 MG/100 ML VIAL IV PRN (14:06)
--- NOTE | 2023-11-29 14:07 | Hospitalist Progress Note ---
Date of Service November 29, 2023 Assessment & Plan (1) Small bowel obstruction: (2) Hypertension: (3) Asthma: (4) Hiatal hernia: Plan Small bowel obstruction History of sigmoid resection secondary to bowel perforation in 2017 Multiple episodes of small bowel obstruction, most recently in 2021 and [address] scan on admission showing partial high-grade small bowel obstruction Repeat KUB on 11/25persistent small bowel obstruction Patient had a trial of NG tube removal on 11/25; however started to feel nauseous. NG tube placed again. Patient continues to NPO Continue IV fluids with potassium Acetaminophen 1 g IV every 8 hours as needed for mild pain or fever Morphine sulfate 2 mg IV every 3 hours as needed for moderate to severe pain Pantoprazole 40 mg IV daily Hypokalemia- replete potassium Asthma- Continue levalbuterol HFA 2 puffs every 4 hours as needed Hypertension- Hold lisinopril 10 mg p.o. twice daily Hydralazine 10 mg IV every 6 hours as needed for systolic blood pressure above 170 Hiatal hernia- Pantoprazole 40 mg IV daily Full code DVT prophylaxisheparin Please note the above document was generated using voice recognition software. It may contain grammatical, syntax or spelling errors. Any formal questions or concerns about the content, text or information contained within the body of this dictation should be directly addressed to the provider for clarification Admission and Anticipated Discharge Date Admission Date: November 23, 2023 Subjective Patient seen and examined at bedside. She is making laps on the hallway No passage of gas/bowel movement No significant events overnight Review of Systems Review of Systems: All systems reviewed & are unremarkable except as noted in Subjective Physical Exam Physical Exam: Constitutional: WD/WN, vitals as above, NAD, sitting up in bed, pleasant, conve rsing easily Respiratory: normal respiratory effort, lungs clear to auscultation, no wheeze, rales, rhonchi. Normal insp/exp effort, no accessory muscle use Cardiovascular: RRR, no murmur, no edema Vessels: no JVD or carotid bruit Chest: normal inspection of chest Abdomen: Slightly distended, nontender. Musculoskeletal: no cyanosis or clubbing, extremities motor strength 5/5 Skin: no rashes, warm and dry normal turgor Neurologic: PERRL, EOMI, accommodation nl, no face palsy, no dysarthria CN's II- XI intact bilaterally and moves all extremities Psychiatric: A+Ox3, euthymic affect Results & Data Results & Data Vital Signs (Past 12 Hours) Vital Signs Temp Pulse Resp BP Pulse Ox O2 Del Method 11/29/23 07:17 36.7 C 65 16 160/77 H 96 Room Air
[2023-11-29] MEDS: D5W AND 1/2NSS + 20MEQ KCL 20 MEQ/1,000 ML BAG IV SCH (16:19)
[2023-11-30 07:58] LABS: Basophils # (auto) 0.01 K/uL (0.00-0.20); Basophils % (auto) 0.2 %; Eosinophils # (auto) 0.22 K/uL (0.00-0.50); Eosinophils % (auto) 3.5 %; Hematocrit (blood only) 35.3 % (37.0-47.0); Hemoglobin 11.9 g/dl (12.0-16.0); Immature Granulocytes # (auto) 0.01 K/uL (0.01-0.20); Immature Granulocytes % (auto) 0.2 %; Lymphocytes # (auto) 1.73 K/uL (1.20-3.40); Lymphocytes % (auto) 27.4 %; Mean Corpuscular Hemoglobin 30.3 pg (25.0-34.0); Mean Corpuscular Hgb Conc 33.7 g/dL (32.0-36.0); Mean Corpuscular Volume 89.8 fL (80.0-100.0); Mean Platelet Volume 9.9 fL (9.4-12.4); Monocytes # (auto) 0.57 K/uL (0.11-0.59); Neutrophils # (auto) 3.78 K/uL (1.40-6.50); Neutrophils % (auto) 59.7 %; Platelet Count 242 K/uL (130-400); RDW Coefficient of Variation 12.5 % (11.5-14.5); RDW Standard Deviation 41.3 fL (36.4-46.3); Red Blood Count 3.93 M/uL (4.20-5.40); White Blood Count 6.32 K/ul (4.8-10.8)
[2023-11-30 08:15] LABS: BUN Creatinine Ratio 14.6 (10-20); Calcium 8.6 mg/dl (8.6-10.3); Creatinine Clr Calc Pharmacy 72.8 ml/min; Est GFR (African American) 108.9 ml/min; Potassium 3.8 mmol/L (3.5-5.1)
--- NOTE | 2023-11-30 08:40 | Surgery Progress Note ---
Date of Service November 30, 2023 Assessment & Plan (1) Small bowel obstruction: Plan: resolving NG drainage slowing patient hungry abdomen soft and not distended will remove NG ambuklate clears Admission and Anticipated Discharge Date Admission Date: November 23, 2023 Subjective awaiting bowel fumction no pain no N/V NG with clearing drainage patient hungry Review of Systems Constitutional: no fever and no chills Respiratory: no cough and no dyspnea Cardiovascular: no chest pain Gastrointestinal: + change in bowel habits; no abdominal p ain, no nausea and no vomiting Genitourinary: no dysuria Neurologic: no localized weakness and no generalized weakness Psychiatric: no behavioral changes Physical Exam Constitutional: WD/WN, vitals as above ENMT: external ear and nose normal, oropharynx normal Respiratory: normal respiratory effort, lungs clear to auscultation Cardiovascular: RRR, no murmur, no edema Gastrointestinal (Abdomen): Inspection/Auscultation: abdomen normal to inspection, normal bowel sounds and + abdominal surgical scar; abdomen not distended Percussion/Palpation: abdomen soft; abdomen nontender Musculoskeletal: Head/Neck/Chest: normocephalic and head atraumatic Skin: no rashes, warm and dry Results & Data Vital Signs (Past 12 Hours) Vital Signs Temp Pulse Resp BP Pulse Ox O2 Del Method 11/30/23 07:23 36.6 C 67 14 150/87 H 94 Room Air
--- NOTE | 2023-11-30 14:06 | Hospitalist Progress Note ---
Date of Service November 30, 2023 Assessment & Plan (1) Small bowel obstruction: (2) Hypertension: (3) Asthma: (4) Hiatal hernia: Plan Small bowel obstruction History of sigmoid resection secondary to bowel perforation in 2017 Multiple episodes of small bowel obstruction, most recently in 2021 and [address] scan on admission showing partial high-grade small bowel obstruction Repeat KUB on 11/25 and 11/27persistent small bowel obstruction Patient had a trial of NG tube removal on 11/25; however started to feel nauseous. NG tube placed again. As per surgery recommendations; NG tube removed and patient started on clear liquid diet. Monitor for nausea, vomiting and abdominal pain. Continue IV fluids with potassium Acetaminophen 1 g IV every 8 hours as needed for mild pain or fever Morphine sulfate 2 mg IV every 3 hours as needed for moderate to severe pain Pantoprazole 40 mg IV daily Hypokalemia- replete potassium Asthma- Continue levalbuterol HFA 2 puffs every 4 hours as needed Hypertension- Hold lisinopril 10 mg p.o. twice daily Hydralazine 10 mg IV every 6 hours as needed for systolic blood pressure above 170 Hiatal hernia- Pantoprazole 40 mg IV daily Full code DVT prophylaxisheparin Please note the above document was generated using voice recognition software. It may contain grammatical, syntax or spelling errors. Any formal questions or concerns about the content, text or information contained within the body of this dictation should be directly addressed to the provider for clarification Admission and Anticipated Discharge Date Admission Date: November 23, 2023 Subjective Patient seen and examined at bedside. Still no return of bowel function; no flatus or bowel movement NG tube in place Review of Systems Review of Systems: All systems reviewed & are unremarkable except as noted in Subjective Physical Exam Physical Exam: Constitutional: WD/WN, vitals as above, NAD, sitting up in bed, pleasant, conversing easily Respiratory: normal respiratory effort, lungs clear to auscultation, no wheeze, rales, rhonchi. Normal insp/exp effort, no accessory muscle use Cardiovascular: RRR, no murmur, no edema Vessels: no JVD or carotid bruit Chest: normal inspection of chest Abdomen: Slightly distended, nontender. Musculoskeletal: no cyanosis or clubbing, extremities motor strength 5/5 Skin: no rashes, warm and dry normal turgor Neurologic: PERRL, EOMI, accommodation nl, no face palsy, no dysarthria CN's II- XI intact bilaterally and moves all extremities Psychiatric: A+Ox3, euthymic affect Results & Data Results & Data Vital Signs (Past 12 Hours) Vital Signs Temp Pulse Resp BP Pulse Ox O2 Del Method 11/30/23 11:21 37.3 C 68 12 126/66 96 Room Air 11/30/23 07:23 36.6 C 67 14 150/87 H 94 Room Air
[2023-12-01 07:14] LABS: Basophils # (auto) 0.02 K/uL (0.00-0.20); Basophils % (auto) 0.4 %; Eosinophils % (auto) 3.6 %; Immature Granulocytes # (auto) 0.01 K/uL (0.01-0.20); Immature Granulocytes % (auto) 0.2 %; Lymphocytes # (auto) 1.44 K/uL (1.20-3.40); Lymphocytes % (auto) 25.9 %; Mean Corpuscular Hemoglobin 30.2 pg (25.0-34.0); Mean Corpuscular Hgb Conc 33.3 g/dL (32.0-36.0); Mean Corpuscular Volume 90.7 fL (80.0-100.0); Mean Platelet Volume 9.5 fL (9.4-12.4); Monocytes # (auto) 0.57 K/uL (0.11-0.59); Monocytes % (auto) 10.3 %; Neutrophils # (auto) 3.31 K/uL (1.40-6.50); Neutrophils % (auto) 59.6 %; Platelet Count 224 K/uL (130-400); RDW Coefficient of Variation 12.7 % (11.5-14.5); RDW Standard Deviation 41.8 fL (36.4-46.3); Red Blood Count 3.64 M/uL (4.20-5.40); White Blood Count 5.55 K/ul (4.8-10.8)
[2023-12-01 07:24] LABS: BUN Creatinine Ratio 9.6 (10-20); Calcium 8.2 mg/dl (8.6-10.3); Creatinine Clr Calc Pharmacy 67.2 ml/min; Est GFR (African American) 106.1 ml/min; Est GFR (Non-African American) 91.5 ml/min; Potassium 3.9 mmol/L (3.5-5.1)
--- NOTE | 2023-12-01 12:23 | Surgery Progress Note ---
Date of Service December 01, 2023 Assessment & Plan (1) Small bowel obstruction: Plan: resolved regular diet tonight discharge per medical team will sign off Admission and Anticipated Discharge Date Admission Date: November 23, 2023 Subjective passing BMs no N/V Review of Systems 2 Constitutional: no fever and no chills Respiratory: no cough and no dyspnea Cardiovascular: no chest pain Gastrointestinal: no abdominal pain, no nausea, no vomiting and no change in bowel habits Genitourinary: no dysuria Physical Exam Constitutional: WD/WN, vitals as above Respiratory: normal respiratory effort, lungs clear to auscultation Cardiovascular: RRR, no murmur, no edema Gastrointestinal (Abdomen): Inspection/Auscultation: abdomen normal to inspection and normal bowel sounds; abdomen not distended Percussion/Palpation: abdomen soft; abdomen nontender Musculoskeletal: Head/Neck/Chest: normocephalic and head atraumatic Skin: no rashes, warm and dry Results & Data Vital Signs (Past 12 Hours) Vital Signs Temp Pulse Resp BP Pulse Ox O2 Del Method 12/01/23 07:32 36.8 C 62 16 143/72 H 97 Room Air
--- NOTE | 2023-12-01 18:32 | Hospitalist Progress Note ---
Date of Service December 01, 2023 Assessment & Plan (1) Small bowel obstruction: (2) Hypertension: (3) Asthma: (4) Hiatal hernia: Plan Small bowel obstruction H/O Sigmoid resection secondary to bowel perforation in 2016 Multiple episodes of small bowel obstruction, most recently in 2021 and 2022 managed conservatively --CT scan on admission showing partial high-grade small bowel obstruction --Repeat KUB on 11/25 and 11/27persistent small bowel obstruction NG tube discontinued -- Advance diet as tolerated -- Received IV fluids --Encouraged to ambulate --Pain control as needed --Appreciate surgery input Hypokalemia Monitor and replete electrolytes as needed Asthma Continue levalbuterol HFA 2 puffs every 4 hours as needed No signs of exacerbation Hypertension Resume home medications as able Monitor BP Hiatal hernia Continue pantoprazole CODE STATUS Full code DVT Px: Heparin SQ Admission and Anticipated Discharge Date Admission Date: November 23, 2023 Subjective Patient is seen and examined at bedside States feeling well today Denies any nausea, vomiting, abdominal pain, chest pain, dyspnea Offers no complaints today Tolerating current diet Hoping to be discharged home tomorrow Review of Systems Review of Systems: All systems reviewed & are unremarkable except as noted in Subjective Physical Exam Physical Exam: Physical Exam: Vitals signs as noted above General Appearance:Moderately built and nourished, no apparent distress Head: normocephalic, Atraumatic Eyes: normal inspection, EOMI Neck: supple, Trachea midline Respiratory/Chest: Normal breath sounds, CTA, No accessory muscle use Cardiovascular: S1, S2, No murmur Abdomen/GI:Soft, nontender, normal bowel sounds, no guarding or rigidity Extremities/Musculoskeletal:normal inspection, no edema Neurologic/Psych:AAOX3, grossly no focal neurological deficits Skin: normal color, warm Results & Data Results & Data Vital Signs (Past 12 Hours) Vital Signs Temp Pulse Pulse Resp BP Pulse Ox O2 Del Method 12/01/23 14:49 36.4 C L 79 16 132/82 Room Air 12/01/23 07:32 36.8 C 62 16 143/72 H 97 Room Air Laboratory Results Short CBC 12/01/23 Range/Units 06:30 WBC 5.55 (4.8-10.8) K/ul Hgb 11.0 L (12.0-16.0) g/dl Hct 33.0 L (37.0-47.0) % Plt Count 224 (130-400) K/uL BMP 12/01/23 06:30 Sodium 139 Potassium 3.9 Chloride 109 H Carbon Dioxide 25 BUN 5 L Creatinine 0.52 L Glucose 107 H Calcium 8.2 L
--- NOTE | 2023-12-02 11:57 | Hospitalist Progress Note ---
Date of Service December 02, 2023 Assessment & Plan (1) Small bowel obstruction: (2) Hypertension: (3) Asthma: (4) Hiatal hernia: Plan Small bowel obstruction H/O Sigmoid resection secondary to bowel perforation in 2017 Multiple episodes of small bowel obstruction, most recently in 2021 and 2022 managed conservatively --CT scan on admission showing partial high-grade small bowel obstruction --Repeat KUB on 11/25 and 11/27persistent small bowel obstruction NG tube discontinued -- Tolerating low fiber diet -- Received IV fluids --Encouraged to ambulate --Pain control as needed --Appreciate surgery input Plan to discharge once cleared by surgery Hypokalemia Monitor and replete electrolytes as needed Asthma Continue levalbuterol HFA 2 puffs every 4 hours as needed No signs of exacerbation Hypertension Resume lisinopril Monitor BP Hiatal hernia Continue pantoprazole CODE STATUS Full code DVT Px: Heparin SQ Disposition Home Admission and Anticipated Discharge Date Admission Date: November 23, 2023 Subjective Patient is seen and examined at bedside No new complaints Ambulating in hallways with no issues Tolerating current diet Denies any nausea, vomiting, abdominal pain, chest pain, dyspnea Eager to get discharged Review of Systems Review of Systems: All systems reviewed & are unremarkable except as noted in Subjective Physical Exam Physical Exam: Physical Exam: Vitals signs as noted above General Appearance:Moderately built and nourished, no apparent distress Head: normocephalic, Atraumatic Eyes: normal inspection, EOMI Neck: supple, Trachea midline Respiratory/Chest: Normal breath sounds, CTA, No accessory muscle use Cardiovascular: S1, S2, No murmur Abdomen/GI:Soft, nontender, normal bowel sounds, no guarding or rigidity Extremities/Musculoskeletal:normal inspection, no edema Neurologic/Psych:AAOX3, grossly no focal neurological deficits Skin: normal color, warm Results & Data Results & Data Vital Signs (Past 12 Hours) Vital Signs Temp Pulse Resp BP Pulse Ox O2 Del Method 12/02/23 07:15 37.1 C 68 18 126/69 95 Room Air
--- NOTE | 2023-12-02 13:42 | Discharge Summary ---
Date of Service December 02, 2023 Admission HPI Per Admitting Provider The patient is a 78-year-old female with a past medical history including small bowel obstruction with perforation requiring sigmoid resection in 2017, recurrences of symptoms in 2018, 2021 2022. Her past medical history also includes hypertension, which tends to be higher during episodes of bowel obstructions, and she has asthma that she uses levalbuterol for as needed. She denies any recent travels or sick exposures. She denies any different food intakes and usual. Admission Exam Per Admitting Provider The patient is awake, alert and oriented 3, well developed and well nourished, normocephalic and atraumatic, lying in bed and in no acute distress. HEENT--PERRL, EOMI, mucous membranes and oropharynx dry. NG tube is now in place Neck--supple. No JVD. No bruits. Thyroid normal, trachea midline, no adenopathy. Heart--normal S1 and S2. No murmurs, rubs or gallops. Lungs--clear bilaterally, no respiratory distress, no accessory muscle use. Abdomen--decreased bowel sounds . Mild firmness and tympanitic. Mildly distended. No pain post morphine Extremities--no cyanosis or clubbing. No edema. Dermatologic--normal skin turgor, normal color, no abnormal lymph nodes, no rash. Neurologic--cranial nerves II through XII grossly intact. Rheumatologic--normal range of motion. Psychiatric--normal affect. Principal Diagnosis Small bowel obstruction Hypokalemia Discharge Data Allergies Allergy/AdvReac Type Severity Reaction Status Date / Time sulfasalazine Allergy Intermediate Difficulty Verified 11/22/23 23:42 Breathing droperidol [From Inapsine] Allergy Mild Agitated Verified 11/22/23 23:42 prochlorperazine AdvReac Intermediate spasm Verified 11/22/23 23:30 [From Compazine] fluconazole AdvReac Mild Vomiting Verified 11/22/23 23:42 meperidine [From Demerol] AdvReac Mild Anxiety Verified 11/22/23 23:42 albuterol AdvReac Tachycardia Verified 11/22/23 23:42 [From Proventil HFA] Consultations 11/23/23 00:12 ED Decision to Admit Stat 11/23/23 00:55 Consult General Surgery Routine Procedures Performed Laboratory Results WBC 5.55 K/ul (4.8-10.8) 12/01/23 06:30 RBC 3.64 M/uL (4.20-5.40) L 12/01/23 06:30 Hgb 11.0 g/dl (12.0-16.0) L 12/01/23 06:30 Hct 33.0 % (37.0-47.0) L 12/01/23 06:30 MCV 90.7 fL (80.0-100.0) 12/01/23 06:30 MCH 30.2 pg (25.0-34.0) 12/01/23 06:30 MCHC 33.3 g/dL (32.0-36.0) 12/01/23 06:30 RDW Std Deviation 41.8 fL (36.4-46.3) 12/01/23 06:30 RDW Coeff of Pineda 12.7 % (11.5-14.5) 12/01/23 06:30 Plt Count 224 K/uL (130-400) 12/01/23 06:30 MPV 9.5 fL (9.4-12.4) 12/01/23 06:30 Immature Gran % (Auto) 0.2 % 12/01/23 06:30 Neut % (Auto) 59.6 % 12/01/23 06:30 Lymph % (Auto) 25.9 % 12/01/23 06:30 [place] % (Auto) 10.3 % 12/01/23 06:30 Eos % (Auto) 3.6 % 12/01/23 06:30 Baso % (Auto) 0.4 % 12/01/23 06:30 Neut # (Auto) 3.31 K/uL (1.40-6.50) 12/01/23 06:30 Lymph # (Auto) 1.44 K/uL (1.20-3.40) 12/01/23 06:30 [place] # (Auto) 0.57 K/uL (0.11-0.59) 12/01/23 06:30 Eos # (Auto) 0.20 K/uL (0.00-0.50) 12/01/23 06:30 Baso # (Auto) 0.02 K/uL (0.00-0.20) 12/01/23 06:30 Immature Gran # (Auto) 0.01 K/uL (0.01-0.20) 12/01/23 06:30 Sodium 139 mmol/L (136-145) 12/01/23 06:30 Potassium 3.9 mmol/L (3.5-5.1) 12/01/23 06:30 Chloride 109 mmol/L (98-107) H 12/01/23 06:30 Carbon Dioxide 25 mmol/L (21-32) 12/01/23 06:30 Anion Gap 5 (3-11) 12/01/23 06:30 BUN 5 mg/dl (6-23) L 12/01/23 06:30 Creatinine 0.52 mg/dl (0.6-1.2) L 12/01/23 06:30 Est Cr Clr Drug Dosing 67.2 ml/min 12/01/23 06:30 Est GFR ( Amer) 106.1 ml/min 12/01/23 06:30 Est GFR (Non-Af Amer) 91.5 ml/min 12/01/23 06:30 BUN/Creatinine Ratio 9.6 (10-20) L 12/01/23 06:30 Glucose 107 mg/dl (70-99(Fasting)) H 12/01/23 06:30 POC Glucose 148 mg/dl (70-99) H 11/30/23 14:31 Estimat Average Glucose 131 mg/dl 11/24/23 08:10 Hemoglobin A1c 6.2 % (4.5-5.6) H 11/24/23 08:10 Calcium 8.2 mg/dl (8.6-10.3) L 12/01/23 06:30 Magnesium 1.8 mg/dl (1.7-2.4) 11/24/23 08:10 Total Bilirubin 0.8 mg/dl (0.2-1.0) 11/22/23 21:19 AST 23 U/L (13-39) 11/22/23 22:18 ALT 16 U/L (7-52) 11/22/23 21:19 Alkaline Phosphatase 83 U/L (34-104) 11/22/23 21:19 Total Protein 7.4 gm/dl (6.0-8.3) 11/22/23 21:19 Albumin 4.5 gm/dl (3.4-5.0) 11/22/23 21:19 Globulin 2.9 gm/dl (2.5-4.0) 11/22/23 21:19 Albumin/Globulin Ratio 1.6 (0.9-2) 11/22/23 21:19 Lipase 16 U/L (11-82) 11/22/23 21:19 Urine Color Yellow 11/23/23 Unknown Urine Appearance Clear (Clear) 11/23/23 Unknown Urine pH 8.5 (4.5-7.5) H 11/23/23 Unknown Ur Specific [place] > 1.045 (1.000-1.030) H 11/23/23 Unknown Urine Protein Negative (Negative) 11/23/23 Unknown Urine Glucose (UA) Negative (Negative) 11/23/23 Unknown Urine Ketones 1+ (Negative) H 11/23/23 Unknown Urine Blood Negative (Negative) 11/23/23 Unknown Urine Nitrite Negative (Negative) 11/23/23 Unknown Urine Bilirubin Negative (Negative) 11/23/23 Unknown Urine Urobilinogen Negative (Negative) 11/23/23 Unknown Ur Leukocyte Esterase Negative (Negative) 11/23/23 Unknown Impressions Abdomen/Pelvis CT 11/22/23 22:05 Exam(s): CT ABDOMEN + PELVIS With Contrast IV Amt: 90 ml opti 320 EXAM: CT Abdomen and Pelvis With Intravenous Contrast CLINICAL HISTORY: Reason for exam: abd pain, elevated WBC. TECHNIQUE: Axial computed tomography images of the abdomen and pelvis with intravenous contrast. Automated exposure control was utilized for the study. A dose lowering technique was utilized adhering to the principles of ALARA. CONTRAST: Patient received 90 ml opti 320 of IV contrast COMPARISON: No relevant prior studies available. FINDINGS: Lung bases: No consolidation. ABDOMEN: Liver: No mass. Gallbladder and bile ducts: There are gallstones noted within the gallbladder.. No ductal dilation. Pancreas: No mass. No ductal dilation. Spleen: No splenomegaly. Adrenals: No mass. Kidneys and ureters: No hydronephrosis. There are rounded lucencies in both kidneys. Stomach and bowel: There is a small hiatal hernia. The stomach is distended containing fluid and air. There are markedly distended loops of mid small bowel. There is air and stool noted in the colon. There are diverticula present on the colon. No significant inflammatory changes are noted. PELVIS: Appendix: The appendix is not visualized.. Bladder: No calculi are noted within the bladder.. Reproductive: Patient appears to be status post hysterectomy.. ABDOMEN and PELVIS: Intraperitoneal space: No free air. No significant fluid collection. Bones/joints: There are degenerative changes in the spine. There is a grade 1 spondylolisthesis of L3 on L4. Soft tissues: Unremarkable. Vasculature: No abdominal aortic aneurysm. Lymph nodes: No enlarged lymph nodes. IMPRESSION: There are markedly distended loops of mid small bowel. This is compatible with a partial high-grade small bowel obstruction. Small hiatal hernia. Cholelithiasis. Diverticulosis. There are possible bilateral renal cysts. See discussion above Electronically signed by: Onel Carreon MD 11/23/23 00:01 AM KUB X-Ray 11/28/23 11:27 KUB CLINICAL HISTORY: Small bowel obstruction. FINDINGS: An AP, portable, supine abdominal radiograph is compared to study dated 11/26/2023. Correlation is made with abdominal CT dated 11/22/2023. An enteric tube is unchanged in position. Distended gas-filled loops of small bowel measure up to 5.7 cm. This indicates persistent obstruction. No evidence of intraperitoneal free air is seen on this supine image. Suture material projects over the pelvis. There are no abnormal abdominal calcifications. The skeletal structures are osteopenic and appear intact. IMPRESSION: Persistent high-grade small bowel obstruction. Electronically signed by: Patrice Awad M.D. 11/28/2023 12:28 PM Ordered Studies 11/22/23 22:05 CT abd pelvis IV con only Stat Hospital Course (1) Small bowel obstruction: (2) Hypertension: (3) Asthma: (4) Hiatal hernia: Plan Small bowel obstruction H/O Sigmoid resection secondary to bowel perforation in 2017 Multiple episodes of small bowel obstruction, most recently in 2021 and 2022 managed conservatively --CT scan on admission showing partial high-grade small bowel obstruction --Repeat KUB on 11/25 and 11/27persistent small bowel obstruction NG tube discontinued -- Tolerating low fiber diet -- Received IV fluids --Encouraged to ambulate --Pain control as needed --Appreciate surgery input Plan to discharge home today Hypokalemia Monitor and replete electrolytes as needed Asthma Continue levalbuterol HFA 2 puffs every 4 hours as needed No signs of exacerbation Hypertension Resume lisinopril Monitor BP Hiatal hernia Continue pantoprazole CODE STATUS Full code DVT Px: Heparin SQ Disposition Home Total Time Total Time Spent Total Time Spent (In Minutes): 38 minutes Discharge Plan Discharge Items Patient Disposition: Home - Self-Care Reason For Visit: SBO, HTN Discharge Diagnosis: Small bowel obstruction Hypokalemia Activity: Per Instructions section Exercise/Sports: Gradually increase as tolerated Non-emergency contact: Primary Care Provider and Surgeon Call non-emergency contact if: you have any medication questions, your symptoms worsen, your pain is concerning for you and you have a fever Follow-up/Referrals: Akash Jones MD [Physician] - Bishnu Gaviria M.D. [Primary Care Provider] - (Date & Time 12/06/2023 2:00 PM Provider Bishnu Gaviria MD Department Family [facility] ) Diet: Low Fiber Addtl Attending Provider Instructions: Follow-up with your primary care physician Dr. Gaviria in 1 week as scheduled Follow-up with your surgeon Dr. Jones as advised -- Monitor your blood pressure regularly at home. Discuss with your physician for further adjustment of medications as needed. Seek immediate medical attention if your symptoms reoccur or worsen Please take all medications as instructed on discharge list below. Please call if you have any questions or problems. You can reach a [facility] hospitalist on duty at [facility] 24 hours a day by calling [phone] Pending Studies at Discharge: No Stand-Alone Forms: My [facility], Smoking Cessation Medications and DC Order Prescriptions: New docusate sodium 100 mg Capsule 100 mg PO BID Qty: 60 0RF Rx Instructions: Hold taking if you develop diarrhea polyethylene glycol 3350 [Miralax] 17 gram Powder In Packet 17 g PO DAILY PRN (Reason: constipation) Qty: 30 0RF Continued lisinopril 10 mg tablet 10 mg PO BID levalbuterol tartrate 45 mcg/actuation HFA aerosol inhaler 2 puff INHALATION Q4 PRN (Reason: Shortness Of Breath Or Wheezing) Discharge Orders: Discharge Order (Routine); Ordered 12/02/23 Ordered By: Nicolas Douglas/Other Patient Handouts: Prediabetes, 5 Steps for Eating Healthier Admission Data Admit Date/Time: 11/23/23 00:55 Attending Provider: Nicolas Castillo Admit Provider: Yoshi Arreaga Primary Care Provider: Bishnu Gaviria Other Providers: Akash Jones; Nicolas Castillo
[2023-12-02] MEDS ORDERED: lisinopril 5 MG TAB PO SCH (21:00)
== END 2023-12-02 16:33 | disposition home or self-care (01) | DRG 389 ==
LOC: ED 20:54 → SUATTDRO 11-23 00:55 → EDINP 11-23 00:55 → 3W 11-23 01:56

== ENCOUNTER 2023-12-16 16:34 | Inpatient (IN) ==
[2023-12-16 17:37] LABS: Basophils # (auto) 0.01 K/uL (0.00-0.20); Basophils % (auto) 0.2 %; Eosinophils % (auto) 1.6 %; Hematocrit (blood only) 38.2 % (37.0-47.0); Hemoglobin 13.4 g/dl (12.0-16.0); Immature Granulocytes # (auto) 0.02 K/uL (0.01-0.20); Immature Granulocytes % (auto) 0.3 %; Lymphocytes # (auto) 2.19 K/uL (1.20-3.40); Lymphocytes % (auto) 34.8 %; Mean Corpuscular Hemoglobin 30.7 pg (25.0-34.0); Mean Corpuscular Hgb Conc 35.1 g/dL (32.0-36.0); Mean Corpuscular Volume 87.6 fL (80.0-100.0); Monocytes # (auto) 0.59 K/uL (0.11-0.59); Monocytes % (auto) 9.4 %; Neutrophils # (auto) 3.38 K/uL (1.40-6.50); Neutrophils % (auto) 53.7 %; Platelet Count 307 K/uL (130-400); RDW Coefficient of Variation 12.2 % (11.5-14.5); RDW Standard Deviation 39.5 fL (36.4-46.3); Red Blood Count 4.36 M/uL (4.20-5.40); White Blood Count 6.29 K/ul (4.8-10.8)
[2023-12-16] MEDS: MoRPHine SULFATE 4 MG/ML 1 ML CARP\\VIAL IV PRN (17:42)
[2023-12-16] MEDS: ONDANSETRON INJ 2 MG/ML 2 ML VIAL IV STA ×2 (17:42→20:04)
[2023-12-16 17:57] LABS: Albumin Globulin Ratio 1.3 (0.9-2); Albumin Level 4.3 gm/dl (3.4-5.0); Bilirubin,Total 0.8 mg/dl (0.2-1.0); Calcium 9.7 mg/dl (8.6-10.3); Globulin 3.2 gm/dl (2.5-4.0); Potassium 4.2 mmol/L (3.5-5.1); Total Protein 7.5 gm/dl (6.0-8.3)
[2023-12-16 18:14] LABS: iSTAT Creatinine 0.5 mg/dl (0.6-1.3); iSTAT Hemoglobin 13.6 g/dl (12.0-16.0); iSTAT Ionized Calcium 0.97 mmol/l (1.12-1.32); iSTAT Potassium 3.9 mmol/L (3.3-5.0)
--- NOTE | 2023-12-16 18:15 | Emergency Department Note ---
Impression & Plan Small bowel obstruction, Right sided abdominal pain ED Provider Note NAME: ANANT HORN AGE: 78 SEX: F : 1945 ARRIVES VIA: Walk-In INFORMANT: Patient, ED PROVIDER(S): Garrett Toth DO CHIEF COMPLAINT: Abdominal pain HPI: The patient is a 78-year-old female who presented to the emergency department for an evaluation of abdominal pain. The patient describes abdominal pain on the right side. She has had episodes of nausea as well as vomiting. She is also noticed loose stools. The patient has a history of similar episode in the past with small bowel obstruction. The patient was seen in our facility in October but also seen at [facility] for similar episodes. They seem to resolve without surgical intervention but the patient noticed return of symptoms over the course the last several days. The patient is not been seen by her family doctor. She presented to the emergency department because of worsening symptoms today. She denies having any fever. ROS: See above HPI for pertinent positives & negatives. A total of 10 systems reviewed and were otherwise negative. PAST MEDICAL HISTORY: See Below PAST SURGICAL HISTORY: See Below FAMILY HISTORY: See Below SOCIAL HISTORY: See Below HOME MEDICATIONS: See Below ALLERGIES: See Below VITALS: See Below PHYSICAL EXAMINATION: GENERAL: Patient is awake alert in no acute distress patient is resting comfortably and showing no signs of anxiety EYES: The conjunctivae are clear. The pupils are round and reactive. EARS, NOSE, MOUTH AND THROAT: The nose is without any evidence of any deformity. Mucous membranes are moist. Tongue is midline. NECK: The neck is nontender and supple. RESPIRATORY: Normal respiratory effort is noted there is no evidence of wheezing rhonchi or rales CARDIOVASCULAR: Regular rate and rhythm noted there no murmurs rubs or gallops normal S1 normal S2. GASTROINTESTINAL: The abdomen is soft but distended. There is right-sided tenderness to palpation which is moderate. MUSCULOSKELETAL/EXTREMITIES: There is no evidence of gross deformity full range of motion is noted in the hips and shoulders. SKIN: There is no obvious evidence of any rash. There are no petechiae, pallor or cyanosis noted. NEUROLOGIC: Patient is awake alert and oriented x3 gait was steady. MEDICAL DECISION MAKING: The patient is a 78-year-old female who presented to the emergency department for an evaluation of abdominal pain and vomiting. The patient has a history of recent bowel obstruction. Over the course of the last several weeks she has been at our facility once and to [facility] once. She states her symptoms usually improve and then she goes home but then they recur shortly after. The patient was treated with IV fluids IV pain medication and IV antiemetics in emergency department. The patient also received an NG tube. She had significant abdominal distention on CT. She also was found to have signs of small bowel obstruction. I discussed patient's laboratory and radiographic studies with her and her family member. I also discussed her condition with the [facility] Hospitalist as well as the on-call general surgeon. They have agreed to evaluate the patient for further management and disposition. Triage Nursing notes reviewed. Prior medical records reviewed Vital Signs: reviewed and remarkable for no significant abnormalities Differential diagnosis: Etiologies such as appendicitis, diverticulitis, obstruction, inflammatory bowel disease, renal colic, PUD, biliary pathology, pancreatitis, mesenteric ischemia, aortic pathology, infections, genitourinary, UTI, perforated viscus, as well as others were entertained. ER treatment provided: See below Diagnostics interpreted by me: ECG: none Cardiac Monitoring: An order was placed for continuous cardiac monitoring. The monitor shows a rate of 70 bpm with sinus rhythm. Laboratory studies: As stated above and show below. Imaging studies: See below. Radiographic imaging was reviewed by myself Consultation(s): I discussed this case with Diana who is on for the [facility] Hospitalist group. I discussed this case with Dr. Anderson who is on-call for general surgery. Past Med/Surg History Problem List (Updated 12/16/23 @ 19:15 by Diana Antunez PA-C) Right sided abdominal pain (Acute) Small bowel obstruction (Acute) Hiatal hernia Small bowel obstruction (Acute) Medical History (Updated 12/16/23 @ 19:15 by Diana Antunez PA-C) Asthma Hypertension Surgical History (Updated 12/16/23 @ 19:15 by Diana Antunez PA-C) Hx of resection of large bowel hx of sigmoid resection in 2017 for perforated diverticulitis Social History Smoking Status: Never smoker Hx Alcohol Use: No Hx Substance Use: No Preferred Language: Maltese Communication Ability: Effective Screener And Blender Required: No Beliefs That Will Affect Care: None Current Living Situation: Alone Feels Safe at Home: Yes Assistive Devices: None Allergies Allergies Allergy/AdvReac Type Severity Reaction Status Date / Time sulfasalazine Allergy Intermediate Difficulty Verified 12/16/23 19:15 Breathing droperidol [From Inapsine] Allergy Mild Agitated Verified 12/16/23 19:15 prochlorperazine AdvReac Intermediate spasm Verified 12/16/23 19:15 [From Compazine] fluconazole AdvReac Mild Vomiting Verified 12/16/23 19:15 meperidine [From Demerol] AdvReac Mild Anxiety Verified 12/16/23 19:15 albuterol AdvReac Tachycardia Verified 12/16/23 19:15 [From Proventil HFA] Home Meds Home Medications Medication Instructions Recorded Confirmed levalbuterol tartrate 45 2 puff inhalation Q4 PRN Shortness 11/22/23 12/16/23 mcg/actuation aerosol inhaler Of Breath Or Wheezing lisinopril 10 mg tablet 10 mg PO BID 11/22/23 12/16/23 Previous Rx's Medication Instructions Recorded docusate sodium 100 mg capsule 100 mg PO BID #60 caps 12/02/23 polyethylene glycol 3350 17 gram 17 g PO DAILY PRN constipation #30 12/02/23 oral powder packet (Miralax) ea Results & Data (ED) Vital Signs Vital Signs - 24 hr 12/16/23 16:46 12/16/23 18:17 12/16/23 18:17 Temperature 36.6 C Temperature Source Skin Pulse Rate 84 70 Pulse Rate [Right Brachial] 70 Pulse Rhythm Regular Pulse Rhythm [Right Brachial] Regular Pulse Strength [Right Brachial] Normal Respiratory Rate 19 18 18 Respiratory Effort / Characteristics Non-Labored Spontaneous Non-Labored Respiratory Depth Normal Normal Respiratory Pattern Regular Regular Blood Pressure 122/65 Blood Pressure [Right Arm] 105/72 Blood Pressure Mean 84 Blood Pressure Mean [Right Arm] 83 Blood Pressure Position [Right Arm] Sitting Pulse Oximetry 98 98 98 Oxygen Delivery Method Room Air Room Air Room Air Sepsis Recent Fever Within 48 Hours No Sepsis New/Unexplained Change in Mental Status N/A Sepsis Action Taken by Nursing No Action Required Home Medications Current Medication List: was personally reviewed by me Laboratory Data Attestation: I reviewed the patient's lab results. 12/16/23 16:55 12/16/23 16:55 Lab Results 12/16/23 12/16/23 12/16/23 Range/Units 16:55 18:01 18:12 WBC 6.29 (4.8-10.8) K/ul RBC 4.36 (4.20-5.40) M/uL Hgb 13.4 (12.0-16.0) g/dl POC Hgb 13.6 (12.0-16.0) g/dl Hct 38.2 (37.0-47.0) % POC Hct 40 (37-47) % MCV 87.6 (80.0-100.0) fL MCH 30.7 (25.0-34.0) pg MCHC 35.1 (32.0-36.0) g/dL RDW Std Deviation 39.5 (36.4-46.3) fL RDW Coeff of Pineda 12.2 (11.5-14.5) % Plt Count 307 (130-400) K/uL MPV 10.0 (9.4-12.4) fL Immature Gran % (Auto) 0.3 % Neut % (Auto) 53.7 % Lymph % (Auto) 34.8 % [place] % (Auto) 9.4 % Eos % (Auto) 1.6 % Baso % (Auto) 0.2 % Neut # (Auto) 3.38 (1.40-6.50) K/uL Lymph # (Auto) 2.19 (1.20-3.40) K/uL [place] # (Auto) 0.59 (0.11-0.59) K/uL Eos # (Auto) 0.10 (0.00-0.50) K/uL Baso # (Auto) 0.01 (0.00-0.20) K/uL Immature Gran # (Auto) 0.02 (0.01-0.20) K/uL POC Sodium 132 L (135-144) mmol/L Sodium 135 L (136-145) mmol/L POC Potassium 3.9 (3.3-5.0) mmol/L Potassium 4.2 (3.5-5.1) mmol/L POC Chloride 103 (101-112) mmol/L Chloride 101 (98-107) mmol/L Carbon Dioxide 25 (21-32) mmol/L POC Total CO2 21 L (24-31) mmol/L Anion Gap 9 (3-11) POC Anion Gap 13.0 L (16-25) mmol/L POC BUN 12 (7-18) mg/dl BUN 13 (6-23) mg/dl Creatinine 0.59 L (0.6-1.2) mg/dl POC Creatinine 0.5 L (0.6-1.3) mg/dl Est Cr Clr Drug Dosing 55.0 ml/min eGFR 92.19 BUN/Creatinine Ratio 22.0 H (10-20) Glucose 117 H (70-99(Fasting)) mg/dl POC Glucose (other) 118 H (70-99) mg/dl Calcium 9.7 (8.6-10.3) mg/dl POC Ioniz Calcium [place] 0.97 L (1.12-1.32) mmol/l Total Bilirubin 0.8 (0.2-1.0) mg/dl AST 20 (13-39) U/L ALT 12 (7-52) U/L Alkaline Phosphatase 82 (34-104) U/L Total Protein 7.5 (6.0-8.3) gm/dl Albumin 4.3 (3.4-5.0) gm/dl Globulin 3.2 (2.5-4.0) gm/dl Albumin/Globulin Ratio 1.3 (0.9-2) Lipase 40 (11-82) U/L Urine Color Yellow Urine Appearance Clear (Clear) Urine pH 8.5 H (4.5-7.5) Ur Specific [place] 1.016 (1.000-1.030) Urine Protein Negative (Negative) Urine Glucose (UA) Negative (Negative) Urine Ketones Negative (Negative) Urine Blood Negative (Negative) Urine Nitrite Negative (Negative) Urine Bilirubin Negative (Negative) Urine Urobilinogen Negative (Negative) Ur Leukocyte Esterase Trace H (Negative) Urine WBC (Auto) 0-5 (0-5) /hpf Urine RBC (Auto) 0-2 (0-2) /hpf U Hyaline Cast (Auto) 0-2 (0-2) /lpf U Epithel Cells (Auto) 0-2 (0-2) /hpf Urine Bacteria (Auto) None Seen (None Seen) Administered Medications Morphine Sulfate (Morphine Sulfate 4 Mg/Ml 1 Ml Carp\Vial) 4 mg IV Q15M PRN PRN Reason: Pain Stop: 12/30/23 17:25 Last Admin: 12/16/23 17:42 Dose: 4 mg Documented By: MICAH Discontinued Medications Ioversol (Optiray 320 100ml) 93 ml IV ONCE ONE Stop: 12/16/23 18:34 Last Admin: 12/16/23 18:33 Dose: 93 ml Documented By: MISAEL Ondansetron HCl (Ondansetron Inj 2 Mg/Ml 2 Ml Vial) 4 mg IV NOW STA Stop: 12/16/23 17:27 Last Admin: 12/16/23 17:42 Dose: 4 mg Documented By: MICAH Imaging Data Attestation: I personally reviewed and interpreted this imaging study as follows: My Impression: CT of the abdomen and pelvis was obtained in the emergency department. My interpretation is small bowel obstruction, no free air, final report below. Radiologist's Impression: Abdomen/Pelvis CT 12/16/23 17:26 Exam(s): CT ABDOMEN + PELVIS With Contrast IV Amt: 93 ml opti 320 EXAM: CT Abdomen and Pelvis With Intravenous Contrast CLINICAL HISTORY: Reason for exam: bowel obs. TECHNIQUE: Axial computed tomography images of the abdomen and pelvis with intravenous contrast. CTDI is 9 mGy and DLP is 389 mGy-cm. Automated exposure control was utilized for the study. A dose lowering technique was utilized adhering to the principles of ALARA. CONTRAST: Patient received 93 ml opti 320 of IV contrast COMPARISON: 11/22/2023. FINDINGS: ABDOMEN: Liver: Unremarkable. Gallbladder and bile ducts: Cholelithiasis without acute cholecystitis. Pancreas: Unremarkable. Spleen: Unremarkable. Adrenals: Unremarkable. Kidneys and ureters: Unremarkable. No obstructing stones. No hydronephrosis. Stomach and bowel: Small bowel obstruction. Transition point within the left lower quadrant. Distention of the small bowel up to 4.5 cm. No pneumatosis, portal venous gas, or free air. Stomach is distended with liquid contents. Intact suture anastomosis within the sigmoid colon. PELVIS: Appendix: No findings to suggest acute appendicitis. Bladder: Unremarkable. Reproductive: Hysterectomy. ABDOMEN and PELVIS: Intraperitoneal space: See above. Bones/joints: No acute fracture. Soft tissues: Unremarkable. Vasculature: Unremarkable. Lymph nodes: Unremarkable. IMPRESSION: Small bowel obstruction. Transition point within the left lower quadrant. Distention of the small bowel up to 4.5 cm. No pneumatosis, portal venous gas, or free air. Electronically signed by: Dane Ordonez MD 12/16/23 19:24 PM Discharge Plan Visit Data Chief Complaint: Abdominal Pain Stated Complaint: SEVERE R SIDED ABD PAIN ED Provider: Garrett Toth Discharge Problem: Small bowel obstruction, Right sided abdominal pain Patient Disposition: Being Evaluated by Hospitalist Forms Stand Alone Forms: My [facility], Important Visit Information Prescriptions Prescriptions: No Action lisinopril 10 mg tablet 10 mg PO BID levalbuterol tartrate 45 mcg/actuation HFA aerosol inhaler 2 puff INHALATION Q4 PRN (Reason: Shortness Of Breath Or Wheezing) docusate sodium 100 mg Capsule 100 mg PO BID Qty: 60 0RF Rx Instructions: Hold taking if you develop diarrhea polyethylene glycol 3350 [Miralax] 17 gram Powder In Packet 17 g PO DAILY PRN (Reason: constipation) Qty: 30 0RF Referrals Referrals: Bishnu Gaviria M.D. [Primary Care Provider] -
[2023-12-16 18:29] LABS: Appearance Urine Clear (Clear); Bacteria Urine Automated None Seen (None Seen); Bilirubin Urine Negative (Negative); Blood Urine Negative (Negative); Cast Urine Automated 0-2 /lpf (0-2); Color Urine Yellow; Epithelial Cell Urine Auto 0-2 /hpf (0-2); Glucose Urine UA Negative (Negative); Ketones Urine Negative (Negative); Leukocyte Esterase Urine Trace (Negative); Nitrite Urine Negative (Negative); Protein Urine Negative (Negative); RBC Urine Automated 0-2 /hpf (0-2); Specific Gravity Urine 1.016 (1.000-1.030); Urobilinogen Urine Negative (Negative); WBC Urine Automated 0-5 /hpf (0-5); pH Urine 8.5 (4.5-7.5)
[2023-12-16] MEDS: OPTIRAY 320 100ml IV ONE (18:33)
--- NOTE | 2023-12-16 19:22 | History & Physical Report ---
Date of Service December 16, 2023 Assessment & Plan (1) Small bowel obstruction: (2) Hypertension: Plan This is a 78-year-old female who has significant past medical history of sigmoid resection in 2017 secondary to perforated diverticulitis, recurrent small bowel obstructions, hypertension and asthma who presents to ED secondary to abdominal pain vomiting and diarrhea. Small bowel obstruction H/O Sigmoid resection secondary to bowel perforation in 2017 with repair of rec tovaginal fistula, hx of hysterectomy, exp lap for ruptured ovarian cyst Multiple episodes of small bowel obstruction, most recently in 2021 and 2022 managed conservatively --CT scan on admission showing SBO Transition point within the left lower quadrant. Distention of the small bowel up to 4.5 cm. No pneumatosis, portal venous gas, or free air. --Repeat KUB in a.m. --NGT ordered -- Receiving IV fluids, monitor K level as previously was low --Encouraged to ambulate --Pain control as needed --pt reports diarrhea, check stool for cdiff due to recent antibiotics Asthma Continue levalbuterol HFA 2 puffs every 4 hours as needed No signs of exacerbation Hypertension recent dx at [facility], recently started lisinopril BP on lower side in ED, will place on hold for now CODE STATUS Full code DVT Px: SCDS for now until seen by surgery, if no immediate surgical intervention then add SQ heparin Disposition: admit to med/surg PCP: Dr. Bishnu Gaviria Pt was seen and examined in collaboration with Dr. Waterman, please see addendum I spent a total of 65 minutes reviewing notes, outpatient records, labs, medication, coordinating, documenting and providing care for this patient excluding time spent in the performance of separately billed services. History of Present Illness Chief Complaint: Abd pain x 2 weeks. Recent admission for SBO. Primary Care Provider: Bishnu Gaviria This is a 78-year-old female who has significant past medical history of sigmoid resection in 2017 secondary to perforated diverticulitis, recurrent small bowel obstructions, hypertension and asthma who presents to ED secondary to abdominal pain vomiting and diarrhea. Of significance patient was most recently hospitalized 11/22 to 12/02/2023 in setting of small bowel obstruction. She had multiple episodes of small bowel obstruction most recently in 2021 in 2022 which was managed conservatively. CT scan on previous admission showing a partial high-grade small bowel obstruction. She was treated with conservative measures including NG tube, IV fluids and pain meds. Her hospital course was complicated by hypokalemia and her electrolytes were replaced. She also had elevated blood pressure for which she was started on lisinopril. Since discharge she has been having off and on abdominal pain, diarrhea and vomiting. Her sx re started an hour after she returned home. She went to [facility] ER on 12/03. While there they initially wanted to transfer her, but she had a bowel movement, gas, felt better and they decided to send her home. She mostly has drank clear liquids x 3 days and her symptoms improved greatly. She felt well for 2-3 days before her sx of severe abd pain, multiple episodes of nausea/vomiting and diarrhea returned. She was to see Dr. Jones office on Wednesday, but when she called today they told her if severe pain returned to go to ED. She states, "I know I'm headed for an operation." She has prior hx of hysterectomy, exploratory laparoscopy due to ruptured ovarian cyst and sigmoid resection due to bowel perforation and rectovaginal fistula repair. In ED pt remained hemodynamically stable. CT scan reveals SBO with transition point in LLQ and SB dilated up to 4.5cm. She has been ordered an NGT. She vomited just prior to my arrival. Hx obtained from pt, daughter at bedside and review of medical records. Allergies Allergy/AdvReac Type Severity Reaction Status Date / Time sulfasalazine Allergy Intermediate Difficulty Verified 12/16/23 19:15 Breathing droperidol [From Inapsine] Allergy Mild Agitated Verified 12/16/23 19:15 prochlorperazine AdvReac Intermediate spasm Verified 12/16/23 19:15 [From Compazine] fluconazole AdvReac Mild Vomiting Verified 12/16/23 19:15 meperidine [From Demerol] AdvReac Mild Anxiety Verified 12/16/23 19:15 albuterol AdvReac Tachycardia Verified 12/16/23 19:15 [From Proventil HFA] Home Medications Medication Instructions Recorded Confirmed Type levalbuterol tartrate 45 2 puff inhalation Q4 PRN Shortness 11/22/23 12/16/23 History mcg/actuation aerosol inhaler Of Breath Or Wheezing lisinopril 10 mg tablet 10 mg PO BID 11/22/23 12/16/23 History docusate sodium 100 mg capsule 100 mg PO BID #60 caps 12/02/23 12/16/23 Rx polyethylene glycol 3350 17 gram 17 g PO DAILY PRN constipation #30 12/02/23 12/16/23 Rx oral powder packet (Miralax) ea Past Med/Surg History Problem List (Updated 12/16/23 @ 19:15 by Diana Antunez PA-C) Right sided abdominal pain (Acute) Small bowel obstruction (Acute) Hiatal hernia Small bowel obstruction (Acute) Medical History (Updated 12/16/23 @ 19:15 by Diana Antunez PA-C) Asthma Hypertension Surgical History (Updated 12/16/23 @ 20:03 by Diana Antunez PA-C) Hx of exploratory laparotomy Hx of hysterectomy Hx of resection of large bowel hx of sigmoid resection in 2017 for perforated diverticulitis Social History Smoking Status: Never smoker Hx Alcohol Use: No Hx Substance Use: No Preferred Language: [place] Communication Ability: Effective Occupational Health Nursing Director Required: No Beliefs That Will Affect Care: None Current Living Situation: Alone Feels Safe at Home: Yes Assistive Devices: None Review of Systems Review of Systems: All systems reviewed & are unremarkable except as noted in HPI & below Physical Exam Physical Exam: Constitutional: WD/WN, vitals as above, NAD, sitting up in bed, pleasant, conversing easily Head: Normocephalic, Atraumatic Eyes: PERRL, conjunctivae normal, anicteric sclerae ENMT: external ear and nose normal, oropharynx normal Neck: trachea midline, no thyromegaly normal visual inspection Respiratory: normal respiratory effort, lungs clear to auscultation, no wheeze, rales, rhonchi. Normal insp/exp effort, no accessory muscle use Cardiovascular: RRR, no murmur, no edema Vessels: no JVD or carotid bruit Chest: normal inspection of chest Abdomen: hyperactive bowel sounds, BS absent LLQ, soft, TTP throughout, no rebound or guarding, mild distension Musculoskeletal: no cyanosis or clubbing, extremities motor strength 5/5 Skin: no rashes, warm and dry normal turgor Neurologic: PERRL, EOMI, accommodation nl, no face palsy, no dysarthria CN's II-XI intact bilaterally and moves all extremities Psychiatric: A+Ox3, euthymic affect Lymphatic: no cervical or axillary lymphadenopathy : deferred Results & Data Results & Data Vital Signs (Past 12 Hours) Vital Signs Temp Pulse Pulse Resp BP BP Pulse Ox 12/16/23 18:17 70 18 98 12/16/23 18:17 70 18 105/72 98 12/16/23 16:46 36.6 C 84 19 122/65 98 O2 Del Method 12/16/23 18:17 Room Air 12/16/23 18:17 Room Air 12/16/23 16:46 Room Air Laboratory Results I have independently reviewed and interpreted patient's admitting labs including CBC, CMP, lipase, UA Diagnostic Findings CT a/p with contrast only: pending read. multiple loops of fluid filled small bowel, concern for SBO Medications Administered Medication List Morphine Sulfate (Morphine Sulfate 4 Mg/Ml 1 Ml Carp\\Vial) 4 mg IV Q15M PRN PRN Reason: Pain Stop: 12/30/23 17:25 Last Admin: 12/16/23 17:42 Dose: 4 mg Documented By: MICAH Discontinued Medications Ioversol (Optiray 320 100ml) 93 ml IV ONCE ONE Stop: 12/16/23 18:34 Last Admin: 12/16/23 18:33 Dose: 93 ml Documented By: MISAEL Ondansetron HCl (Ondansetron Inj 2 Mg/Ml 2 Ml Vial) 4 mg IV NOW STA Stop: 12/16/23 17:27 Last Admin: 12/16/23 17:42 Dose: 4 mg Documented By: MICAH COVID-19 Results Results COVID-19 Adm Lab Results: RBC 4.36 M/uL (4.20-5.40) 12/16/23 WBC 6.29 K/ul (4.8-10.8) 12/16/23 Hgb 13.4 g/dl (12.0-16.0) 12/16/23 Hct 38.2 % (37.0-47.0) 12/16/23 Plt Count 307 K/uL (130-400) 12/16/23 Neutrophils (%) (Auto) 53.7 % 12/16/23 Lymphocytes (%) (Auto) 34.8 % 12/16/23 Monocytes # (Auto) 0.59 K/uL (0.11-0.59) 12/16/23 Eosinophils # (Auto) 0.10 K/uL (0.00-0.50) 12/16/23 Immature Granulocyte % (Auto) 0.3 % 12/16/23 Neutrophils # (Auto) 3.38 K/uL (1.40-6.50) 12/16/23 Lymphocytes # (Auto) 2.19 K/uL (1.20-3.40) 12/16/23 Monocytes # (Auto) 0.59 K/uL (0.11-0.59) 12/16/23 Eosinophils # (Auto) 0.10 K/uL (0.00-0.50) 12/16/23 Basophils # (Auto) 0.01 K/uL (0.00-0.20) 12/16/23 Immature Granulocyte # (Auto) 0.02 K/uL (0.01-0.20) 4 Na 135 mmol/L (136-145) L 12/16/23 K 4.2 mmol/L (3.5-5.1) 12/16/23 Cl 101 mmol/L (98-107) 12/16/23 CO2 25 mmol/L (21-32) 12/16/23 Anion Gap 9 (3-11) 12/16/23 BUN 13 mg/dl (6-23) 12/16/23 Creatinine 0.59 mg/dl (0.6-1.2) L 12/16/23 BUN/Creatinine Ratio 22.0 (10-20) H 12/16/23 Glucose Level 117 mg/dl (70-99(Fasting)) H 12/16/23 Ca 9.7 mg/dl (8.6-10.3) 12/16/23 Total Bilirubin 0.8 mg/dl (0.2-1.0) 12/16/23 AST/SGOT 20 U/L (13-39) 12/16/23 ALT/SGPT 12 U/L (7-52) 12/16/23 Alkaline Phosphatase 82 U/L (34-104) 12/16/23 Total Protein 7.5 gm/dl (6.0-8.3) 12/16/23 Albumin 4.3 gm/dl (3.4-5.0) 12/16/23 Globulin 3.2 gm/dl (2.5-4.0) 12/16/23 Albumin/Globulin Ratio 1.3 (0.9-2) 12/16/23 Code Status & VTE Plan Code Status FULL CODE VTE Prophylaxis Plan VTE Prophylaxis will be ordered: Yes Supervising Physician Co-Signing Physician Notes 78-year-old lady with PMH of abdominal surgery, recurrent bowel obstructions, HTN, asthma presented with complaint of on and off nausea/vomiting/abdominal pain with poor p.o. intake since discharge about 2 weeks ago [employer]IPMENT [employer]INE[employer]. Admitting CTAP suggestive of s. bowel obstruction. labs reviewed. labs in am, replete electrolytes as appropriate, npo, ivf, pain mx, gen sx consult. On Exam GENERAL: Alert and oriented x3. in mild distress, on RA. HEENT: No pallor, no icterus. Pupils equal, round and reactive to light. Oral mucosa moist. NECK: No JVD, no neck masses. HEART: S1 and S2 heard. Regular rate and rhythm. No murmur, no gallop. RESPIRATORY SYSTEM: Normal AP diameter. No accessory muscle use. No wheezing, no crackles. ABDOMEN: Soft, bowel sounds present, diffuse abd tender x mild, no distention. CENTRAL NERVOUS SYSTEM: No facial droop. Speech is clear. Obeys simple commands. Moves extremities. EXTREMITIES: No edema, no erythema seen. I have seen and examined the patient and have discussed the case with the provider above. I agree with the assessment and plan as stated. time spent: 25 min
--- NOTE | 2023-12-16 19:25 | CT Scan Report ---
Exam(s): CT ABDOMEN + PELVIS With Contrast IV Amt: 93 ml opti 320 EXAM: CT Abdomen and Pelvis With Intravenous Contrast CLINICAL HISTORY: Reason for exam: bowel obs. TECHNIQUE: Axial computed tomography images of the abdomen and pelvis with intravenous contrast. CTDI is 9 mGy and DLP is 389 mGy-cm. Automated exposure control was utilized for the study. A dose lowering technique was utilized adhering to the principles of ALARA. CONTRAST: Patient received 93 ml opti 320 of IV contrast COMPARISON: 11/22/2023. FINDINGS: ABDOMEN: Liver: Unremarkable. Gallbladder and bile ducts: Cholelithiasis without acute cholecystitis. Pancreas: Unremarkable. Spleen: Unremarkable. Adrenals: Unremarkable. Kidneys and ureters: Unremarkable. No obstructing stones. No hydronephrosis. Stomach and bowel: Small bowel obstruction. Transition point within the left lower quadrant. Distention of the small bowel up to 4.5 cm. No pneumatosis, portal venous gas, or free air. Stomach is distended with liquid contents. Intact suture anastomosis within the sigmoid colon. PELVIS: Appendix: No findings to suggest acute appendicitis. Bladder: Unremarkable. Reproductive: Hysterectomy. ABDOMEN and PELVIS: Intraperitoneal space: See above. Bones/joints: No acute fracture. Soft tissues: Unremarkable. Vasculature: Unremarkable. Lymph nodes: Unremarkable. IMPRESSION: Small bowel obstruction. Transition point within the left lower quadrant. Distention of the small bowel up to 4.5 cm. No pneumatosis, portal venous gas, or free air. Electronically signed by: Dane Ordonez MD 12/16/23 19:24 PM
[2023-12-16] MEDS: PROMETHAZINE 12.5 MG/50.5 ML BAG IV STA (20:04)
[2023-12-16] MEDS: SODIUM CHLORIDE 0.9% 1,000 ML IV ONE (20:38)
[2023-12-16] MEDS: BENZOCAINE/TETRACAIN/BUTAM 50 APPLN/5 GM CAN EXT ONE (20:39)
[2023-12-16] MEDS ORDERED: MoRPHine SULFATE 4 MG/ML 1 ML CARP\\VIAL IV PRN (21:38)
[2023-12-16] MEDS ORDERED: ONDANSETRON INJ 2 MG/ML 2 ML VIAL IV PRN (21:38)
[2023-12-16] MEDS: ACETAMINOPHEN 1,000 MG/100 ML VIAL IV SCH (22:32)
[2023-12-16] MEDS: LACTATED RINGER'S 1,000 ML IV SCH (22:34)
--- NOTE | 2023-12-17 07:15 | XRay Report ---
KUB HISTORY: Status post placement of an enteric tube after NGT COMPARISON: CT of same day FINDINGS: The lower abdomen is excluded from the [id number]. Contrast noted within the renal colle cting systems and urinary bladder. The imaged lung thomas appear clear. Heart is upper limits of norm al in size. Distal tip of enteric tube projects over the left mid abdomen, likely within the distende d gastric body. Surgical suture material projects over the midline pelvis. Persistent small bowel obs truction with unchanged small bowel dilation. No renal calculi. No ureteral calculi. No pneumoperiton eum or pneumatosis. No fracture. IMPRESSION: 1. Distal tip of enteric tube projects over the distended stomach. 2. Persistent small bowel obstruction ACT 112: Negative or not required by law. The above report was generated using voice recognition software. It may contain grammatical, syntax o r spelling errors. Electronically signed by: Reilly Valera M.D. 12/17/2023 7:14 AM
[2023-12-17 07:45] LABS: Basophils # (auto) 0.02 K/uL (0.00-0.20); Basophils % (auto) 0.4 %; Eosinophils # (auto) 0.18 K/uL (0.00-0.50); Eosinophils % (auto) 3.7 %; Hematocrit (blood only) 33.4 % (37.0-47.0); Hemoglobin 11.2 g/dl (12.0-16.0); Immature Granulocytes # (auto) 0.01 K/uL (0.01-0.20); Immature Granulocytes % (auto) 0.2 %; Lymphocytes # (auto) 1.33 K/uL (1.20-3.40); Mean Corpuscular Hemoglobin 29.9 pg (25.0-34.0); Mean Corpuscular Hgb Conc 33.5 g/dL (32.0-36.0); Mean Corpuscular Volume 89.1 fL (80.0-100.0); Mean Platelet Volume 9.6 fL (9.4-12.4); Monocytes # (auto) 0.63 K/uL (0.11-0.59); Monocytes % (auto) 12.8 %; Neutrophils # (auto) 2.76 K/uL (1.40-6.50); Neutrophils % (auto) 55.9 %; Platelet Count 219 K/uL (130-400); RDW Coefficient of Variation 12.3 % (11.5-14.5); Red Blood Count 3.75 M/uL (4.20-5.40); White Blood Count 4.93 K/ul (4.8-10.8)
[2023-12-17 07:51] LABS: BUN Creatinine Ratio 16.7 (10-20); Calcium 8.8 mg/dl (8.6-10.3); Creatinine Clr Calc Pharmacy 52.7 ml/min; Potassium 3.7 mmol/L (3.5-5.1)
[2023-12-17] MEDS ORDERED: MoRPHine SULFATE 4 MG/ML 1 ML CARP\\VIAL IV PRN (09:18)
--- NOTE | 2023-12-17 10:42 | XRay Report ---
XR KUB/Abdomen 1 view CLINICAL HISTORY: sbo TECHNIQUE: 1 view of the abdomen was obtained. Comparison: Comparison is made to abdomen radiograph 12/16/2023 FINDINGS: Enteric tube terminates in the stomach. Degenerative changes are seen in the visualized skeleton. Sma ll bowel dilation measures 38 mm. Small stool burden is seen. IMPRESSION: Findings compatible with small bowel obstruction. ACT 112: Negative or not required by law. Electronically signed by: Geoffrey Tapia M.D. 12/17/2023 10:41 AM
[2023-12-17] MEDS ORDERED: Nursing to Pharmacy Communication SCH (12:00)
[2023-12-17] MEDS ORDERED: CHLORASEPTIC (PHENOL) 1.4% SOLN 180 ML BTL MT PRN (12:28)
--- NOTE | 2023-12-17 12:31 | Surgery Consultation ---
Date of Consultation December 17, 2023 Assessment & Plan (1) Small bowel obstruction: (2) Right sided abdominal pain: 78-year-old female with history of multiple abdominal surgeries and multiple small bowel obstructions in the past treated conservatively with recent admission here about any hospital for high-grade small bowel obstruction at the end of October presenting again with recurrence of abdominal pain, nausea, vomiting, diarrhea. Repeat CT scan of abdomen pelvis showing small bowel obstruction with transition point in the left lower quadrant. Currently has NG tube with good decompression, soft abdomen, no current abdominal pain. Plan: Will plan to continue conservative management at this time however patient has recurrence of symptoms since her last admission with no significant improvement and imaging consistent with persistent small bowel obstruction therefore she may require intervention in near future. She likely has significant scar tissue from prior surgeries. Continue NG tube for decompression Continue IV fluids Continue current medical management [facility] covering weekend DR. Jones has seen and examined patient, agrees with above. History of Present Illness Reason for Consultation: recurrent SBO Requesting Physician: Diana Antunez PA-C Attending Physician: Nicolas Castillo MD History of Present Illness Sherlyn is a 78-year-old female with history of hypertension, asthma, Edith thyroiditis, history of multiple abdominal surgeries including large abdominal surgery for ruptured ovarian cyst, hysterectomy, sigmoid resection performed for perforated diverticulitis in 2016 with repair of a vaginal fistula and history o f small bowel obstructions and 2021 in 2022 treated conservatively with NG tube decompression who presented to the emergency room with persistent and ongoing abdominal pain, nausea, vomiting, diarrhea since her last admission here about any on 11/23/2023. She states that after last hospital discharge she had recurrence of her abdominal pain and vomiting and then she would have bowel function and feel better. She presented to the emergency department at [facility] and had a CT scan of her abdomen pelvis which showed a low-grade bowel obstruction. She started having bowel function and was discharged from the emergency department and went home however then started to have recurrence of her symptoms again and then ultimately presented here to the hospital. Repeat CT scan of the abdomen pelvis showing a small bowel obstruction with transition in the left lower quadrant. She has no leukocytosis, lactic acid within normal limits. NG tube was placed and she is currently feeling much better no abdominal pain. Allergies Allergy/AdvReac Type Severity Reaction Status Date / Time sulfasalazine Allergy Intermediate Difficulty Verified 10/17/24 19:15 Breathing droperidol [From Inapsine] Allergy Mild Agitated Verified 12/16/23 19:15 prochlorperazine AdvReac Intermediate spasm Verified 12/16/23 19:15 [From Compazine] fluconazole AdvReac Mild Vomiting Verified 12/16/23 19:15 meperidine [From Demerol] AdvReac Mild Anxiety Verified 12/16/23 19:15 albuterol AdvReac Tachycardia Verified 12/16/23 19:15 [From Proventil HFA] Home Medications Medication Instructions Recorded Confirmed Type levalbuterol tartrate 45 2 puff inhalation Q4 PRN Shortness 11/22/23 12/16/23 History mcg/actuation aerosol inhaler Of Breath Or Wheezing lisinopril 10 mg tablet 10 mg PO BID 11/22/23 12/16/23 History docusate sodium 100 mg capsule 100 mg PO BID #60 caps 12/02/23 12/16/23 Rx polyethylene glycol 3350 17 gram 17 g PO DAILY PRN constipation #30 12/02/23 12/16/23 Rx oral powder packet (Miralax) ea Patient History Medical History (Updated 12/16/23 @ 19:15 by Diana Antunez PA-C) Asthma Hypertension Surgical History (Updated 12/16/23 @ 20:03 by Diana Antunez PA-C) Hx of exploratory laparotomy Hx of hysterectomy Hx of resection of large bowel hx of sigmoid resection in 2017 for perforated diverticulitis Social History Smoking Status: Never smoker Hx Alcohol Use: No Hx Substance Use: No Preferred Language: Norwegian Communication Ability: Effective Leadership Development Instructor Required: No Beliefs That Will Affect Care: None Current Living Situation: Alone Feels Safe at Home: Yes Safety Concerns: Feels Safe At This Time Assistive Devices: Glasses Review of Systems Review of Systems: All systems reviewed & are unremarkable except as noted in HPI & below Physical Exam Constitutional: WD/WN, vitals as above cooperative and comfortable; no acute distress and not ill appearing Respiratory: normal respiratory effort; no respiratory distress, no labored breathing and no retractions Gastrointestinal (Abdomen): Inspection/Auscultation: abdomen normal to inspection and + abdominal surgical scar (Midline laparotomy); abdomen not distended Percussion/Palpation: + abdomen tender (Mild in the right lower abdomen) and abdomen soft; no guarding, abdomen not rigid and abdomen not firm NG tube with dark green output Skin: no rashes, warm and dry Psychiatric: A+Ox3, euthymic affect Results & Data Vital Signs (Past 12 Hours) Vital Signs Temp Pulse Resp BP Pulse Ox O2 Del Method 12/17/23 07:47 36.4 C L 59 L 16 112/66 97 Room Air Laboratory Results 12/17/23 12/16/23 12/16/23 Range/Units 07:13 20:50 18:12 WBC 4.93 (4.8-10.8) K/ul RBC 3.75 L (4.20-5.40) M/uL Hgb 11.2 L (12.0-16.0) g/dl POC Hgb (12.0-16.0) g/dl Hct 33.4 L (37.0-47.0) % POC Hct (37-47) % MCV 89.1 (80.0-100.0) fL MCH 29.9 (25.0-34.0) pg MCHC 33.5 (32.0-36.0) g/dL RDW Std Deviation 40.0 (36.4-46.3) fL RDW Coeff of [place] 12.3 (11.5-14.5) % Plt Count 219 (130-400) K/uL MPV 9.6 (9.4-12.4) fL Immature Gran % (Auto) 0.2 % Neut % (Auto) 55.9 % Lymph % (Auto) 27.0 % [place] % (Auto) 12.8 % Eos % (Auto) 3.7 % Baso % (Auto) 0.4 % Neut # (Auto) 2.76 (1.40-6.50) K/uL Lymph # (Auto) 1.33 (1.20-3.40) K/uL [place] # (Auto) 0.63 H (0.11-0.59) K/uL Eos # (Auto) 0.18 (0.00-0.50) K/uL Baso # (Auto) 0.02 (0.00-0.20) K/uL Immature Gran # (Auto) 0.01 (0.01-0.20) K/uL POC Sodium (135-144) mmol/L Sodium 138 (136-145) mmol/L POC Potassium (3.3-5.0) mmol/L Potassium 3.7 (3.5-5.1) mmol/L POC Chloride (101-112) mmol/L Chloride 103 (98-107) mmol/L Carbon Dioxide 30 (21-32) mmol/L POC Total CO2 (24-31) mmol/L Anion Gap 5 (3-11) POC Anion Gap (16-25) mmol/L POC BUN (7-18) mg/dl BUN 10 (6-23) mg/dl Creatinine 0.60 (0.6-1.2) mg/dl POC Creatinine (0.6-1.3) mg/dl Est Cr Clr Drug Dosing 52.7 ml/min eGFR 91.82 BUN/Creatinine Ratio 16.7 (10-20) Glucose 92 (70-99(Fasting)) mg/dl POC Glucose (other) (70-99) mg/dl Lactate 1.1 (0.4-2.0) mmol/L Calcium 8.8 (8.6-10.3) mg/dl POC Ioniz Calcium [place] (1.12-1.32) mmol/l Magnesium 2.0 (1.7-2.4) mg/dl Total Bilirubin (0.2-1.0) mg/dl AST (13-39) U/L ALT (7-52) U/L Alkaline Phosphatase (34-104) U/L Total Protein (6.0-8.3) gm/dl Albumin (3.4-5.0) gm/dl Globulin (2.5-4.0) gm/dl Albumin/Globulin Ratio (0.9-2) Lipase (11-82) U/L Urine Color Yellow Urine Appearance Clear (Clear) Urine pH 8.5 H (4.5-7.5) Ur Specific [place] 1.016 (1.000-1.030) Urine Protein Negative (Negative) Urine Glucose (UA) Negative (Negative) Urine Ketones Negative (Negative) Urine Blood Negative (Negative) Urine Nitrite Negative (Negative) Urine Bilirubin Negative (Negative) Urine Urobilinogen Negative (Negative) Ur Leukocyte Esterase Trace H (Negative) Urine WBC (Auto) 0-5 (0-5) /hpf Urine RBC (Auto) 0-2 (0-2) /hpf U Hyaline Cast (Auto) 0-2 (0-2) /lpf U Epithel Cells (Auto) 0-2 (0-2) /hpf Urine Bacteria (Auto) None Seen (None Seen) 12/16/23 12/16/23 Range/Units 18:01 16:55 WBC 6.29 (4.8-10.8) K/ul RBC 4.36 (4.20-5.40) M/uL Hgb 13.4 (12.0-16.0) g/dl POC Hgb 13.6 (12.0-16.0) g/dl Hct 38.2 (37.0-47.0) % POC Hct 40 (37-47) % MCV 87.6 (80.0-100.0) fL MCH 30.7 (25.0-34.0) pg MCHC 35.1 (32.0-36.0) g/dL RDW Std Deviation 39.5 (36.4-46.3) fL RDW Coeff of [place] 12.2 (11.5-14.5) % Plt Count 307 (130-400) K/uL MPV 10.0 (9.4-12.4) fL Immature Gran % (Auto) 0.3 % Neut % (Auto) 53.7 % Lymph % (Auto) 34.8 % [place] % (Auto) 9.4 % Eos % (Auto) 1.6 % Baso % (Auto) 0.2 % Neut # (Auto) 3.38 (1.40-6.50) K/uL Lymph # (Auto) 2.19 (1.20-3.40) K/uL [place] # (Auto) 0.59 (0.11-0.59) K/uL Eos # (Auto) 0.10 (0.00-0.50) K/uL Baso # (Auto) 0.01 (0.00-0.20) K/uL Immature Gran # (Auto) 0.02 (0.01-0.20) K/uL POC Sodium 132 L (135-144) mmol/L Sodium 135 L (136-145) mmol/L POC Potassium 3.9 (3.3-5.0) mmol/L Potassium 4.2 (3.5-5.1) mmol/L POC Chloride 103 (101-112) mmol/L Chloride 101 (98-107) mmol/L Carbon Dioxide 25 (21-32) mmol/L POC Total CO2 21 L (24-31) mmol/L Anion Gap 9 (3-11) POC Anion Gap 13.0 L (16-25) mmol/L POC BUN 12 (7-18) mg/dl BUN 13 (6-23) mg/dl Creatinine 0.59 L (0.6-1.2) mg/dl POC Creatinine 0.5 L (0.6-1.3) mg/dl Est Cr Clr Drug Dosing 55.0 ml/min eGFR 92.19 BUN/Creatinine Ratio 22.0 H (10-20) Glucose 117 H (70-99(Fasting)) mg/dl POC Glucose (other) 118 H (70-99) mg/dl Lactate (0.4-2.0) mmol/L Calcium 9.7 (8.6-10.3) mg/dl POC Ioniz Calcium [place] 0.97 L (1.12-1.32) mmol/l Magnesium (1.7-2.4) mg/dl Total Bilirubin 0.8 (0.2-1.0) mg/dl AST 20 (13-39) U/L ALT 12 (7-52) U/L Alkaline Phosphatase 82 (34-104) U/L Total Protein 7.5 (6.0-8.3) gm/dl Albumin 4.3 (3.4-5.0) gm/dl Globulin 3.2 (2.5-4.0) gm/dl Albumin/Globulin Ratio 1.3 (0.9-2) Lipase 40 (11-82) U/L Urine Color Urine Appearance (Clear) Urine pH (4.5-7.5) Ur Specific [place] (1.000-1.030) Urine Protein (Negative) Urine Glucose (UA) (Negative) Urine Ketones (Negative) Urine Blood (Negative) Urine Nitrite (Negative) Urine Bilirubin (Negative) Urine Urobilinogen (Negative) Ur Leukocyte Esterase (Negative) Urine WBC (Auto) (0-5) /hpf Urine RBC (Auto) (0-2) /hpf U Hyaline Cast (Auto) (0-2) /lpf U Epithel Cells (Auto) (0-2) /hpf Urine Bacteria (Auto) (None Seen) Diagnostic Findings Exam(s): CT ABDOMEN + PELVIS With Contrast IV Amt: 93 ml opti 320 EXAM: CT Abdomen and Pelvis With Intravenous Contrast CLINICAL HISTORY: Reason for exam: bowel obs. TECHNIQUE: Axial computed tomography images of the abdomen and pelvis with intravenous contrast. CTDI is 9 mGy and DLP is 389 mGy-cm. Automated exposure control was utilized for the study. A dose lowering technique was utilized adhering to the principles of ALARA. CONTRAST: Patient received 93 ml opti 320 of IV contrast COMPARISON: 11/22/2023. FINDINGS: ABDOMEN: Liver: Unremarkable. Gallbladder and bile ducts: Cholelithiasis without acute cholecystitis. Pancreas: Unremarkable. Spleen: Unremarkable. Adrenals: Unremarkable. Kidneys and ureters: Unremarkable. No obstructing stones. No hydronephrosis. Stomach and bowel: Small bowel obstruction. Transition point within the left lower quadrant. Distention of the small bowel up to 4.5 cm. No pneumatosis, portal venous gas, or free air. Stomach is distended with liquid contents. Intact suture anastomosis within the sigmoid colon. PELVIS: Appendix: No findings to suggest acute appendicitis. Bladder: Unremarkable. Reproductive: Hysterectomy. ABDOMEN and PELVIS: Intraperitoneal space: See above. Bones/joints: No acute fracture. Soft tissues: Unremarkable. Vasculature: Unremarkable. Lymph nodes: Unremarkable. IMPRESSION: Small bowel obstruction. Transition point within the left lower quadrant. Distention of the small bowel up to 4.5 cm. No pneumatosis, portal venous gas, or free air.
--- NOTE | 2023-12-17 16:19 | Hospitalist Progress Note ---
Date of Service December 17, 2023 Assessment & Plan (1) Small bowel obstruction: (2) Hypertension: Plan Patient is a 78-yr female who has significant past medical history of sigmoid resection in 2017 secondary to perforated diverticulitis, recurrent small bowel obstructions, hypertension and asthma who presents to ED secondary to abdominal pain vomiting and diarrhea. Small bowel obstruction H/O Sigmoid resection secondary to bowel perforation in 2017 with repair of rectovaginal fistula, hx of hysterectomy, exp lap for ruptured ovarian cyst Multiple episodes of small bowel obstruction, most recently in 2021 and 2022 managed conservatively --CT ABD:Small bowel obstruction. Transition point within the left lower quadrant. Distention of the small bowel up to 4.5 cm. No pneumatosis, portal venous gas, or free air. Continue NG tube Continue IV fluids, bowel rest Pain control Appreciate surgery input Check stool studies if patient develops diarrhea Asthma Continue levalbuterol HFA 2 puffs every 4 hours as needed No signs of exacerbation Hypertension recent dx at [facility], recently started lisinopril Hold lisinopril for now Monitor BP CODE STATUS Full code DVT Px: Heparin SQ Disposition: Expect to discharge Home as able Admission and Anticipated Discharge Date Admission Date: December 16, 2023 Subjective Patient is seen and examined at bedside Nausea, vomiting, abdominal pain resolved NG tube in place Denies any chest pain, dyspnea, dizziness Discussed with patient's daughter at bedside No other complaints Review of Systems Review of Systems: All systems reviewed & are unremarkable except as noted in Subjective Physical Exam Physical Exam: Physical Exam: Vitals signs as noted above General Appearance:Moderately built and nourished, no apparent distress Head: normocephalic, Atraumatic Eyes: normal inspection, EOMI Neck: supple, Trachea midline Respiratory/Chest: Normal breath sounds, CTA, No accessory muscle use Cardiovascular: S1, S2, No murmur Abdomen/GI:Soft, nontender, very faint bowel sounds, no guarding or rigidity Extremities/Musculoskeletal:normal inspection, no edema Neurologic/Psych:AAOX3, grossly no focal neurological deficits, +Decreased hearing Skin: normal color, warm Results & Data Results & Data Vital Signs (Past 12 Hours) Vital Signs Temp Pulse Resp BP Pulse Ox O2 Del Method 12/17/23 15:41 36.6 C 62 111/65 96 Room Air 12/17/23 07:47 36.4 C L 59 L 16 112/66 97 Room Air Laboratory Results Short CBC 12/16/23 12/17/23 Range/Units 16:55 07:13 WBC 6.29 4.93 (4.8-10.8) K/ul Hgb 13.4 11.2 L (12.0-16.0) g/dl Hct 38.2 33.4 L (37.0-47.0) % Plt Count 307 219 (130-400) K/uL BMP 12/16/23 12/17/23 16:55 07:13 Sodium 135 L 138 Potassium 4.2 3.7 Chloride 101 103 Carbon Dioxide 25 30 BUN 13 10 Creatinine 0.59 L 0.60 Glucose 117 H 92 Calcium 9.7 8.8 Liver Function 12/16/23 Range/Units 16:55 Total Bilirubin 0.8 (0.2-1.0) mg/dl AST 20 (13-39) U/L ALT 12 (7-52) U/L Alkaline Phosphatase 82 (34-104) U/L Albumin 4.3 (3.4-5.0) gm/dl Urine 12/16/23 Range/Units 18:12 Urine Color Yellow Urine Appearance Clear (Clear) Urine pH 8.5 H (4.5-7.5) Ur Specific [place] 1.016 (1.000-1.030) Urine Protein Negative (Negative) Urine Glucose (UA) Negative (Negative)
[2023-12-17] MEDS: HEPARIN SOD 5,000 UNIT/0.5 ML VIAL SQ SCH (20:32)
[2023-12-18] MEDS: DEXTROSE 50% 50 ML SYRINGE IV ONE (04:39)
[2023-12-18] MEDS: D5W AND LACTATED RINGERS 1,000 ML IV SCH (04:40)
[2023-12-18] MEDS: POTASSIUM CHLORIDE / WTR 10 MEQ/100 ML PLCT IV SCH (05:08)
[2023-12-18 05:14] LABS: Hematocrit (blood only) 32.8 % (37.0-47.0); Hemoglobin 10.7 g/dl (12.0-16.0); Mean Corpuscular Hemoglobin 29.8 pg (25.0-34.0); Mean Corpuscular Hgb Conc 32.6 g/dL (32.0-36.0); Mean Corpuscular Volume 91.4 fL (80.0-100.0); Mean Platelet Volume 10.1 fL (9.4-12.4); Platelet Count 216 K/uL (130-400); RDW Coefficient of Variation 12.1 % (11.5-14.5); RDW Standard Deviation 40.7 fL (36.4-46.3); Red Blood Count 3.59 M/uL (4.20-5.40); White Blood Count 4.74 K/ul (4.8-10.8)
[2023-12-18 05:36] LABS: BUN Creatinine Ratio 23.8 (10-20); Calcium 8.3 mg/dl (8.6-10.3); Creatinine Clr Calc Pharmacy 50.2 ml/min; Magnesium 1.8 mg/dl (1.7-2.4); Potassium 3.6 mmol/L (3.5-5.1)
--- NOTE | 2023-12-18 06:53 | Surgery Progress Note ---
Date of Service December 18, 2023 Assessment & Plan (1) Small bowel obstruction: Plan: Will plan to continue conservative management at this time with NGT decompression. Keep NPO and IV hydration Encourage ambulation and OOB Continue medical management per primary team, surgery will continue to follow Admission and Anticipated Discharge Date Admission Date: December 16, 2023 Supervising Physician Co-Signing Physician Notes She states she did have a very small bowel movement passing some gas this morning She also states her abdominal pain is much improved Will continue NG tube for today Surgery will follow Subjective Patient having minimal pain this morning, states at times she does have some in her lower abdominal region. NGT has remained in place and continues on suction, recorded 1950mL output in 24 hours. Patient is motivated and has been ambulating since admission. Patient denies passing gas or having BM Denies fevers, chills, CP or SOB Physical Exam Constitutional: WD/WN, vitals as above Respiratory: normal respiratory effort, lungs clear to auscultation Cardiovascular: RRR, no murmur, no edema Gastrointestinal (Abdomen): Abdomen is soft and nondistended. Mild TTP in the lower pelvic/RLQ region however no rebound, guarding or signs of peritonitis. Previous midline incision noted. +NGT remains in place to suction with ga stric contents in canister. Psychiatric: A+Ox3, euthymic affect Results & Data Vital Signs (Past 12 Hours) Vital Signs Temp Pulse Resp BP Pulse Ox O2 Del Method 12/18/23 04:15 36.6 C 76 16 100/60 99 Room Air 12/17/23 20:11 36.6 C 73 18 146/78 H 97 Room Air PG Care Time/CCT Total # of Minutes Spent Total Time Spent with Patient: Total time spent is greater than 50% in coordination of care (as documented) at patient's floor/unit and/or counseling patient: Coding Level of Care Code 93060 SUB INP/OBS CARE 03/25MIN Diagnoses Small bowel obstruction K56.609
[2023-12-18 08:01] LABS: Estimated Average Glucose 134 mg/dl; Hemoglobin A1C 6.3 % (4.5-5.6)
[2023-12-18] MEDS ORDERED: GLUCOSE 10 TAB/TUBE PO PRN (11:03)
[2023-12-18] MEDS ORDERED: GLUCAGON FOR INJ 1 MG VIAL SQ PRN (11:03)
[2023-12-18] MEDS ORDERED: GLUCOSE 40% GEL 15 GM TUBE PO PRN (11:03)
[2023-12-18] MEDS ORDERED: DEXTROSE 50% 50 ML SYRINGE IV PRN (11:03)
--- NOTE | 2023-12-18 11:16 | Hospitalist Progress Note ---
Date of Service December 18, 2023 Assessment & Plan (1) Small bowel obstruction: (2) Hypertension: Plan Patient is a 78-yr female who has significant past medical history of sigmoid resection in 2017 secondary to perforated diverticulitis, recurrent small bowel obstructions, hypertension and asthma who presents to ED secondary to abdominal pain vomiting and diarrhea. Small bowel obstruction H/O Sigmoid resection secondary to bowel perforation in 2017 with repair of rectovaginal fistula, hx of hysterectomy, exp lap for ruptured ovarian cyst Multiple episodes of small bowel obstruction, most recently in 2021 and 2022 managed conservatively --CT ABD:Small bowel obstruction. Transition point within the left lower quadrant. Distention of the small bowel up to 4.5 cm. No pneumatosis, portal venous gas, or free air. Continue NG tube Continue IV fluids, bowel rest Pain control Appreciate surgery input - continue conservative measures Pt w/o diarrhea, stool studies discontinued Hypoglycemia Pre DM pt BSG in 60s this a.m., she received IV dextrose and fluids switched to include D5 fasting glucose > 300, repeat 162 place on accu checks TID while on D5 fluid and monitor Asthma Continue levalbuterol HFA 2 puffs every 4 hours as needed No signs of exacerbation Hypertension recent dx at [facility], recently started lisinopril Hold lisinopril for now and place on IV vasotec Monitor BP CODE STATUS Full code DVT Px: Heparin SQ, pt ambulatory as well Disposition: Expect to discharge Home as able I spent a total of 45 minutes reviewing notes, outpatient records, labs, medication, coordinating, documenting and providing care for this patient excluding time spent in the performance of separately billed services. Admission and Anticipated Discharge Date Admission Date: December 16, 2023 Supervising Physician Co-Signing Physician Notes Reviewed the chart in detail. Discussed the case with the collaborating advanced practitioner. I agree with the documentation as above. I have reviewed and confirmed the patients medical history, thefindings on physical examination, and the patients diagnosis and treatment plan with Diana Antunez PA-C and agree with the information documented. Agree with management of small bowel obstruction, monitoring for hypoglycemia in setting of n.p.o. Subjective Pt with hypoglycemia over night. She trys to walk frequently and mostly 8-10 laps at a time. After 2 laps early this morning she became unwell and felt very lightheaded. Staff checked her BSG and it was in the 60s. She received IV dextrose and her sx improved. She is very frustrated by all this. She states this has been going on since 2017 and she was hoping to just get it taken care of surgically this time. She reports she is praying to almighty god to heal her and that she misses her deeply as he has passed after 56 years of marriage. She denies f/c/s, chest pain, sob, n/v. Her abd is less distended and she denies any pain. She passed a small amount of gas this morning. Review of Systems Review of Systems: All systems reviewed & are unremarkable except as noted in HPI & below Physical Exam Physical Exam: Gen: WD/WN, F NAD, A&O x3, tearful and appears frustrated HEENT: Normocephalic, atraumatic, conjunctivae moist, sclerae anicteric, mucous membranes moist. +NGT in place with bilious output Lung: Clear to Auscultation bilaterally, no wheezes/rales/rhonchi Heart: Regular rate, regular rhythm, no murmurs, rubs, or gallops Abdomen: Soft, NT, ND hypoactive BS x 4 Extremities: No edema Skin: Warm, no rash, negative turgor. Results & Data Results & Data Vital Signs (Past 12 Hours) Vital Signs Temp Pulse Resp BP Pulse Ox O2 Del Method 12/18/23 08:15 36.8 C 78 16 153/66 H 97 Room Air 12/18/23 04:15 36.6 C 76 16 100/60 99 Room Air Laboratory Results Short CBC 12/18/23 Range/Units 04:40 WBC 4.74 L (4.8-10.8) K/ul Hgb 10.7 L (12.0-16.0) g/dl Hct 32.8 L (37.0-47.0) % Plt Count 216 (130-400) K/uL BMP 12/18/23 04:40 Sodium 136 Potassium 3.6 Chloride 99 Carbon Dioxide 22 BUN 15 Creatinine 0.63 Glucose 332 H* Calcium 8.3 L Medications Administered Current Inpatient Medications Dextrose (Dextrose 50% 50 Ml Syringe) 25 - 50 ml IV UD PRN; Protocol PRN Reason: Hypoglycemia Protocol Stop: 01/17/24 11:02 Glucagon (Glucagon For Inj 1 Mg Vial) 1 mg SQ UD PRN; Protocol PRN Reason: Hypoglycemia Protocol Stop: 01/17/24 11:02 Glucose (Glucose 40% Gel 15 Gm Tube) 15 - 30 gm PO UD PRN; Protocol PRN Reason: Hypoglycemia Protocol Stop: 01/17/24 11:02 Glucose (Glucose 10 Tab/Tube) 4 - 8 tab PO UD PRN; Protocol PRN Reason: Hypoglycemia Protocol Stop: 01/17/24 11:02 Heparin Sodium (Porcine) (Heparin Sod 5,000 Unit/0.5 Ml Vial) 5,000 units SQ Q12 GO Stop: 01/16/24 20:59 Last Admin: 12/18/23 08:09 Dose: Not Given Acetaminophen (Ofirmev) 1,000 mg in 100 mls @ 400 mls/hr IV Q8H GO Stop: 12/19/23 21:59 Last Infusion: 12/18/23 05:44 Dose: Infused Dextrose/Lactated Ringer's (D5w And Lactated Ringers) 1,000 mls @ 60 mls/hr IV .[id number] GO Stop: 01/17/24 04:44 Last Infusion: 12/18/23 08:46 Dose: 60 mls/hr Morphine Sulfate (Morphine Sulfate 4 Mg/Ml 1 Ml Carp\Vial) 2 mg IV Q4H PRN PRN Reason: Severe Pain (Scale 7, 8, 9,10) Stop: 12/30/23 21:37 Ondansetron HCl (Ondansetron Inj 2 Mg/Ml 2 Ml Vial) 4 mg IV Q6H PRN PRN Reason: Nausea Stop: 01/15/24 21:37 Phenol (Chloraseptic (Phenol) 1.4% Soln 180 Ml Btl) 1 sprays MT Q4 PRN PRN Reason: Pain Stop: 01/16/24 12:27
[2023-12-18] MEDS ORDERED: ENALAPRILAT 1.25 MG in DEXTROSE 5% 25 ML IV PRN (11:38)
[2023-12-19] MEDS: hydrALAZINE HCL 20 MG/ML VIAL IV ONE (01:32)
--- NOTE | 2023-12-19 06:53 | Surgery Progress Note ---
Date of Service December 19, 2023 Assessment & Plan (1) Small bowel obstruction: Plan: Patient states her pain has significantly improved and she is passing gas. Will keep NGT in place for now, if patient continues to feel well this afternoon will possibly trial clear liquids. Encourage ambulation and OOB Continue medical management per primary team, surgery will continue to follow Admission and Anticipated Discharge Date Admission Date: December 16, 2023 Supervising Physician Co-Signing Physician Notes Can remove NG tube and trial sips of clears, would not give her a full tray today Continue to take it slowly as he is she has had these recurrent bowel obstructions recently Subjective Patient seen and evaluated this morning, she states her abdominal pain has significantly improved. Admits to a small BM yesterday however nothing since. Is passing gas. NGT has remained in place to suction with recorded 950mL output Physical Exam Constitutional: WD/WN, vitals as above Respiratory: normal respiratory effort, lungs clear to auscultation Cardiovascular: RRR, no murmur, no edema Gastrointestinal (Abdomen): Inspection/Auscultation: abdomen not distended Percussion/Palpation: abdomen soft; abdomen nontender, no guarding, abdomen not rigid and abdomen not firm Psychiatric: A+Ox3, euthymic affect Results & Data Vital Signs (Past 12 Hours) Vital Signs Temp Pulse Resp BP Pulse Ox O2 Del Method 12/19/23 00:45 158/73 H 12/19/23 00:03 183/84 H 12/18/23 21:14 36.7 C 76 18 170/80 H 94 Room Air PG Care Time/CCT Total # of Minutes Spent Total Time Spent with Patient: Total time spent is greater than 50% in coordination of care (as documented) at patient's floor/unit and/or counseling patient: Coding Level of Care Code 74981 SUB INP/OBS CARE 03/25MIN Diagnoses Small bowel obstruction K56.609
--- NOTE | 2023-12-19 09:17 | Hospitalist Progress Note ---
Date of Service December 19, 2023 Assessment & Plan (1) Small bowel obstruction: (2) Hypertension: Plan Patient is a 78-yr female who has significant past medical history of sigmoid resection in 2017 secondary to perforated diverticulitis, recurrent small bowel obstructions, hypertension and asthma who presents to ED secondary to abdominal pain vomiting and diarrhea. Small bowel obstruction H/O Sigmoid resection secondary to bowel perforation in 2017 with repair of rectovaginal fistula, hx of hysterectomy, exp lap for ruptured ovarian cyst Multiple episodes of small bowel obstruction, most recently in 2021 and 2022 managed conservatively --CT ABD:Small bowel obstruction. Transition point within the left lower quadrant. Distention of the small bowel up to 4.5 cm. No pneumatosis, portal venous gas, or free air. Continue NG tube Continue IV fluids, bowel rest Pain control Appreciate surgery input - continue conservative measures, per surgery possibly trial clear liquids this afternoon Hypoglycemia Pre DM, a1c 6.3 pt with episode of hypoglycemia 12/17 D5 now incorporated to fluids and this has improved place on accu checks TID to follow closely, no indication for insulin coverage at this time Asthma Continue levalbuterol HFA 2 puffs every 4 hours as needed No signs of exacerbation Hypertension recent dx at [facility], recently started lisinopril resume lisinopril as soon as NGT removed prn IV hydralazine for SBP > 170 CODE STATUS Full code DVT Px: Heparin SQ, pt ambulatory as well Disposition: Expect to discharge Home as able I spent a total of 44 minutes reviewing notes, outpatient records, labs, medication, coordinating, documenting and providing care for this patient excluding time spent in the performance of separately billed services. Admission and Anticipated Discharge Date Admission Date: December 16, 2023 Supervising Physician Co-Signing Physician Notes Reviewed the chart in detail. Discussed the case with the collaborating advanced practitioner. I agree with the documentation as above. I have reviewed and confirmed the patients medical history and the patients diagnosis and treatment plan with Diana Antunez PA-C and agree with the information documented. Agree with management of small bowel obstruction. Surgery foll owing. Subjective NAEO. NGT remains in place, 950ml output in last 24hrs. She denies abdominal pain or nausea. She is hopeful to try some liquids this afternoon. She denies f/c/s, chest pain, sob, n/v. She has passed quite a bit of gas from last night. She reports ambulating the halls at 0200 and 0600. Review of Systems Review of Systems: All systems reviewed & are unremarkable except as noted in HPI & below Physical Exam Physical Exam: Gen: WD/WN, F NAD, A&O x3, flat affect HEENT: Normocephalic, atraumatic, conjunctivae moist, sclerae anicteric, mucous membranes moist. +NGT in place with bilious output Lung: Clear to Auscultation bilaterally, no wheezes/rales/rhonchi Heart: Regular rate, regular rhythm, no murmurs, rubs, or gallops Abdomen: Soft, NT, ND hypoactive BS x 4 Extremities: No edema Skin: Warm, no rash, negative turgor. Results & Data Results & Data Vital Signs (Past 12 Hours) Vital Signs Temp Pulse Resp BP Pulse Ox O2 Del Method 12/19/23 08:03 36.6 C 65 16 141/76 H 97 Room Air 12/19/23 00:45 158/73 H 12/19/23 00:03 183/84 H 12/18/23 21:14 36.7 C 76 18 170/80 H 94 Room Air Diagnostic Findings KUB pending Medications Administered Current Inpatient Medications Dextrose (Dextrose 50% 50 Ml Syringe) 25 - 50 ml IV UD PRN; Protocol PRN Reason: Hypoglycemia Protocol Stop: 01/17/24 11:02 Glucagon (Glucagon For Inj 1 Mg Vial) 1 mg SQ UD PRN; Protocol PRN Reason: Hypoglycemia Protocol Stop: 01/17/24 11:02 Glucose (Glucose 40% Gel 15 Gm Tube) 15 - 30 gm PO UD PRN; Protocol PRN Reason: Hypoglycemia Protocol Stop: 01/17/24 11:02 Glucose (Glucose 10 Tab/Tube) 4 - 8 tab PO UD PRN; Protocol PRN Reason: Hypoglycemia Protocol Stop: 01/17/24 11:02 Heparin Sodium (Porcine) (Heparin Sod 5,000 Unit/0.5 Ml Vial) 5,000 units SQ Q12 [facility] Stop: 01/16/24 20:59 Last Admin: 12/18/23 19:22 Dose: Not Given Hydralazine HCl (Hydralazine Hcl 20 Mg/Ml Vial) 5 mg IV Q6H PRN PRN Reason: SBP > 170 Stop: 01/18/24 07:59 Acetaminophen (Ofirmev) 1,000 mg in 100 mls @ 400 mls/hr IV Q8H GO Stop: 12/19/23 21:59 Last Infusion: 12/19/23 05:49 Dose: Infused Dextrose/Lactated Ringer's (D5w And Lactated Ringers) 1,000 mls @ 50 mls/hr IV .Q20H GO Stop: 01/17/24 04:44 Last Infusion: 12/18/23 23:43 Dose: 50 mls/hr Morphine Sulfate (Morphine Sulfate 4 Mg/Ml 1 Ml Carp\Vial) 2 mg IV Q4H PRN PRN Reason: Severe Pain (Scale 7, 8, 9,10) Stop: 12/30/23 21:37 Ondansetron HCl (Ondansetron Inj 2 Mg/Ml 2 Ml Vial) 4 mg IV Q6H PRN PRN Reason: Nausea Stop: 01/15/24 21:37 Phenol (Chloraseptic (Phenol) 1.4% Soln 180 Ml Btl) 1 sprays MT Q4 PRN PRN Reason: Pain Stop: 01/16/24 12:27
--- NOTE | 2023-12-19 10:57 | XRay Report ---
XR KUB/Abdomen 1 view CLINICAL HISTORY: sbo TECHNIQUE: 1 view of the abdomen was obtained. Comparison: Comparison is made to abdomen radiograph 12/17/2023 FINDINGS: Enteric tube terminates in the stomach. Degenerative changes are seen in the visualized skeleton. Pro minent gas distended loops of small bowel are partially visualized. Small stool burden is seen. Posts urgical changes are seen in the pelvis compatible with prior bowel surgery. IMPRESSION: Findings compatible with small bowel obstruction. ACT 112: Negative or not required by law. Electronically signed by: Geoffrey Tapia M.D. 12/19/2023 10:55 AM
[2023-12-19] MEDS: hydrALAZINE HCL 20 MG/ML VIAL IV PRN (20:22)
[2023-12-20 07:53] LABS: Basophils # (auto) 0.03 K/uL (0.00-0.20); Basophils % (auto) 0.4 %; Eosinophils # (auto) 0.29 K/uL (0.00-0.50); Eosinophils % (auto) 3.7 %; Hematocrit (blood only) 34.4 % (37.0-47.0); Immature Granulocytes # (auto) 0.02 K/uL (0.01-0.20); Immature Granulocytes % (auto) 0.3 %; Lymphocytes # (auto) 1.46 K/uL (1.20-3.40); Lymphocytes % (auto) 18.8 %; Mean Corpuscular Hemoglobin 30.3 pg (25.0-34.0); Mean Corpuscular Hgb Conc 34.9 g/dL (32.0-36.0); Mean Corpuscular Volume 86.9 fL (80.0-100.0); Mean Platelet Volume 9.9 fL (9.4-12.4); Monocytes # (auto) 0.68 K/uL (0.11-0.59); Monocytes % (auto) 8.8 %; Neutrophils # (auto) 5.27 K/uL (1.40-6.50); Platelet Count 220 K/uL (130-400); RDW Coefficient of Variation 12.3 % (11.5-14.5); RDW Standard Deviation 39.3 fL (36.4-46.3); Red Blood Count 3.96 M/uL (4.20-5.40); White Blood Count 7.75 K/ul (4.8-10.8)
[2023-12-20 08:15] LABS: BUN Creatinine Ratio 17.8 (10-20); Calcium 8.6 mg/dl (8.6-10.3); Creatinine Clr Calc Pharmacy 70.3 ml/min
--- NOTE | 2023-12-20 10:08 | Surgery Progress Note ---
Date of Service December 20, 2023 Assessment & Plan (1) Small bowel obstruction: (2) Right sided abdominal pain: Plan: 78-year-old female with history of multiple abdominal surgeries and multiple small bowel obstructions in the past treated conservatively with recent admission here at [facility] for high-grade small bowel obstruction at the end of October presenting again with recurrence of abdominal pain, nausea, vomiting, diarrhea. Repeat CT scan of abdomen pelvis showing small bowel obstruction with transition point in the left lower quadrant. Currently has NG tube with good decompression, soft abdomen, no current abdominal pain. 12/20/2023 no abdominal pain, n,v still has NGT in though 350 cc last shift, only passing small amount of gas, no bowel movement Plan: Consider sbft for further evlauation of location of SBO. Given her chronic constipation, has stool burden in right colon may be slightly therapeutic due to oral contrast continue NGT for now Continue ambulating continue medical management Discussed with Dr. Jones who will evaluate patient later today. Admission and Anticipated Discharge Date Admission Date: December 16, 2023 Subjective currently feeling okay, abdominal pain resolved passing small amount of gas no real bowel movement no n,v ambulating hallway Physical Exam Constitutional: WD/WN, vitals as above cooperative and comfortable; no acute distress and not ill appearing Gastrointestinal (Abdomen): Inspection/Auscultation: abdomen normal to inspection and + abdominal surgical scar (midline laparotomy scar, transverse lower abdominal scar); abdomen not distended Percussion/Palpation: abdomen soft; abdomen nontender, no guarding and abdomen not rigid NGT with dark brown/ bilious output Skin: no rashes, warm and dry Results & Data Vital Signs (Past 12 Hours) Vital Signs Temp Pulse Resp BP Pulse Ox O2 Del Method 12/20/23 07:09 36.6 C 68 18 168/74 H 96 Room Air Laboratory Results 12/20/23 12/20/23 12/20/23 Range/Units 06:46 06:06 03:04 WBC 7.75 (4.8-10.8) K/ul RBC 3.96 L (4.20-5.40) M/uL Hgb 12.0 (12.0-16.0) g/dl Hct 34.4 L (37.0-47.0) % MCV 86.9 (80.0-100.0) fL MCH 30.3 (25.0-34.0) pg MCHC 34.9 (32.0-36.0) g/dL RDW Std Deviation 39.3 (36.4-46.3) fL RDW Coeff of Pineda 12.3 (11.5-14.5) % Plt Count 220 (130-400) K/uL MPV 9.9 (9.4-12.4) fL Immature Gran % (Auto) 0.3 % Neut % (Auto) 68.0 % Lymph % (Auto) 18.8 % [place] % (Auto) 8.8 % Eos % (Auto) 3.7 % Baso % (Auto) 0.4 % Neut # (Auto) 5.27 (1.40-6.50) K/uL Lymph # (Auto) 1.46 (1.20-3.40) K/uL [place] # (Auto) 0.68 H (0.11-0.59) K/uL Eos # (Auto) 0.29 (0.00-0.50) K/uL Baso # (Auto) 0.03 (0.00-0.20) K/uL Immature Gran # (Auto) 0.02 (0.01-0.20) K/uL Sodium 140 (136-145) mmol/L Potassium 3.0 L (3.5-5.1) mmol/L Chloride 105 (98-107) mmol/L Carbon Dioxide 28 (21-32) mmol/L Anion Gap 7 (3-11) BUN 8 (6-23) mg/dl Creatinine 0.45 L (0.6-1.2) mg/dl Est Cr Clr Drug Dosing 70.3 ml/min eGFR 98.41 BUN/Creatinine Ratio 17.8 (10-20) Glucose 90 (70-99(Fasting)) mg/dl POC Glucose 89 85 (70-99) mg/dl Calcium 8.6 (8.6-10.3) mg/dl 12/19/23 12/19/23 12/19/23 Range/Units 20:14 15:01 11:21 WBC (4.8-10.8) K/ul RBC (4.20-5.40) M/uL Hgb (12.0-16.0) g/dl Hct (37.0-47.0) % MCV (80.0-100.0) fL MCH (25.0-34.0) pg MCHC (32.0-36.0) g/dL RDW Std Deviation (36.4-46.3) fL RDW Coeff of Pineda (11.5-14.5) % Plt Count (130-400) K/uL MPV (9.4-12.4) fL Immature Gran % (Auto) % Neut % (Auto) % Lymph % (Auto) % [place] % (Auto) % Eos % (Auto) % Baso % (Auto) % Neut # (Auto) (1.40-6.50) K/uL Lymph # (Auto) (1.20-3.40) K/uL [place] # (Auto) (0.11-0.59) K/uL Eos # (Auto) (0.00-0.50) K/uL Baso # (Auto) (0.00-0.20) K/uL Immature Gran # (Auto) (0.01-0.20) K/uL Sodium (136-145) mmol/L Potassium (3.5-5.1) mmol/L Chloride (98-107) mmol/L Carbon Dioxide (21-32) mmol/L Anion Gap (3-11) BUN (6-23) mg/dl Creatinine (0.6-1.2) mg/dl Est Cr Clr Drug Dosing ml/min eGFR BUN/Creatinine Ratio (10-20) Glucose (70-99(Fasting)) mg/dl POC Glucose 93 110 H 95 (70-99) mg/dl Calcium (8.6-10.3) mg/dl Diagnostic Findings XR KUB/Abdomen 1 view CLINICAL HISTORY: sbo TECHNIQUE: 1 view of the abdomen was obtained. Comparison: Comparison is made to abdomen radiograph 12/17/2023 FINDINGS: Enteric tube terminates in the stomach. Degenerative changes are seen in the visualized skeleton. Prominent gas distended loops of small bowel are partially visualized. Small stool burden is seen. Postsurgical changes are seen in the pelvis compatible with prior bowel surgery. IMPRESSION: Findings compatible with small bowel obstruction.
[2023-12-20] MEDS: POTASSIUM CHLORIDE / WTR 10 MEQ/100 ML PLCT IV SCH (10:30)
--- NOTE | 2023-12-20 12:53 | Fluoroscopy Report ---
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 COMPARISON STUDY: CT of the abdomen and pelvis December 16, 2023 and KUB December 19, 2023. FINDINGS: The patient presented for small bowel follow-through. The tip of the nasogastric tube proje cts over the distal esophagus. The tube could be advanced 14 cm. Several loops of mildly dilated smal l bowel are again noted. No evidence for free air on supine exam. IMPRESSION: 1. Tip of nasogastric tube projects over the distal esophagus. The tube could be advanced 14 cm befor e obtaining a repeat KUB. Small bowel follow-through not performed at this time given esophageal posi tioning of the nasogastric tube. 2. Several loops of mildly dilated small bowel. This favors a persistent small bowel obstruction. ACT 112: Negative or not required by law. Electronically signed by: Franki Palomo M.D. 12/20/2023 12:50 PM
[2023-12-20] MEDS: POLYETHYLENE (MIRALAX) 17 GM PACK PO SCH (13:40)
--- NOTE | 2023-12-20 14:40 | Hospitalist Progress Note ---
Date of Service December 20, 2023 Assessment & Plan (1) Small bowel obstruction: Plan Sherlyn Romero is a 78y/o F with PMHx significant for sigmoid resection secondary to perforated diverticulitis [2017], recurrent small bowel obstructions, hypertension and asthma who presented to the ED on 12/16/2023 secondary to abdominal pain, vomiting and diarrhea. She was found to have small bowel obstruction at time of admission. Small Bowel Obstruction: H/O sigmoid resection secondary to bowel perforation in 2017 with repair of rectovaginal fistula, hysterectomy & exploratory laparotomy for ruptured ovarian cyst. Multiple episodes of small bowel obstruction, most recently last month that was managed conservatively under our service. Admitting CTAP --> Small bowel obstruction. Transition point within the left lower quadrant. Distention of the small bowel up to 4.5cm. No pneumatosis, portal venous gas, or free air. General surgery consulted. Have been managing her recurrent SBO conservatively with NGT decompression, IVF, PRN pain control and bowel rest per general surgery's recommendation. General surgery ordered a small bowel follow through (SBFT) study to be done today to evaluate the location of the SBO. And per general surgery --> Given her chronic constipation and that has stool burden in right colon, SBFT study may be slightly therapeutic due to oral contrast. Patient went down for her SBFT study this morning and unfortunately it could not be performed due to esophageal positioning of the NGT --> "Tip of nasogastric tube projects over the distal esophagus. The tube could be advanced 14cm before obtaining a repeat KUB." Patient blew her nose while down at x-ray and dislodged the NGT. Spoke with Teresa Christianson PA-C via TT. Cannot perform the SBFT again until tomorrow morning. NGT has been repositioned by nursing staff. Hypoglycemia: Hgb A1c 6.3% this admission. Patient with episode of hypoglycemia on 12/17. D5 now incorporated into fluids and this has improved. Placed on BSG checks TID to follow closely, no indication for insulin coverage at this time. Asthma: No signs of exacerbation, continue home PRN inhaler. Hypertension: Recently diagnosed at [facility]; she was started lisinopril 10mg BID. Home lisinopril on hold for now, plan to resume once the NGT is removed. PRN IV hydralazine for SBP>170 ordered. DVT Prophylaxis: SQ Heparin, patient ambulatory as well. Code Status: FULL CODE PCP: Bishnu Gaviria MD Disposition: Admitted in Med/Surg - Plan to undergo SBFT study tomorrow per tonsil hospital surgery's recommendation. Patient seen in collaboration with Dr. Castillo. Please see addendum. I spent a total of 55 minutes coordinating, documenting, and providing care for this patient excluding time spent in the performance of separately billed services. This included personally reviewing all current laboratories and imaging studies, medical reconciliation, outpatient chart review and discussion with specialists. This chart was completed in part utilizing Speech Voice Recognition Software. Grammatical errors, random word insertions, pronoun errors, and incomplete sentences are an occasional consequence of this system due to software limitations, ambient noise, and hardware issues. Any formal questions or concerns about the content, text, or information contained within the body of this dictation should be directly addressed to the provider for clarification. Admission and Anticipated Discharge Date Admission Date: December 16, 2023 Supervising Physician Co-Signing Physician Notes I have seen and examined the patient at bedside. Discussed the case with the collaborating advanced practitioner. I agree with the documentation as above. I have reviewed and confirmed the patients medical history, the findings on physical examination, and the patients diagnosis and treatment plan with Natalya Fagan PA-C and agree with the information documented. Recurrent small bowel obstruction + Flatus, no BM today Plan for small bowel follow-through as able Denies any nausea, vomiting, abdominal pain today Continue NG tube, IV fluids Appreciate surgery input Subjective Patient frustrated that her SBO has not yet resolved. NGT still remains in place, 400mL bilious output noted. Has been passing gas but no BM yet. Does endorse some mild epigastric abdominal pain with palpation. Mentions she is hungry for soup broth. She has been up and ambulating the halls quite frequently. Denies any N/V, SOB or chest pain. States the general surgery is going to perform a study today. Review of Systems Review of Systems: At least ten systems reviewed and negative, except as noted in the subjective section. Physical Exam Physical Exam: General: WD/WN, vitals as above, NAD, laying down in bed, very pleasant, conversing appropriately. A+Ox3, tearful affect. HEENT: Normocephalic, atraumatic. PERRL, conjunctivae normal, anicteric sclerae. External ear and nose normal, oropharynx normal. Respiratory: Normal respiratory effort, lungs clear to auscultation, no wheeze, rales, rhonchi. No accessory muscle use. Cardiovascular: Regular rate, rhythm, no murmur, normal peripheral pulses, no BLE edema. Vessels: No JVD. Abdomen/GI: Hypoactive bowel sounds, soft, TTP in epigastric region, no hepatosplenomegaly, NGT with brown/bilious output. Extremities/Musculoskeletal: No cyanosis or clubbing, extremities motor strength intact, moves all extremities. Neurologic: EOMI, no focal deficits, CN's II-XI not formally tested but appear grossly intact bilaterally. Skin: No rashes, normal color, warm/dry. 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 COMPARISON STUDY: CT of the abdomen and pelvis December 16, 2023 and KUB December 19, 2023. FINDINGS: The patient presented for small bowel follow-through. The tip of the nasogastric tube projects over the distal esophagus. The tube could be advanced 14 cm. Several loops of mildly dilated small bowel are again noted. No evidence for free air on supine exam. IMPRESSION: 1. Tip of nasogastric tube projects over the distal esophagus. The tube could be advanced 14 cm before obtaining a repeat KUB. Small bowel follow-through not performed at this time given esophageal positioning of the nasogastric tube. 2. Several loops of mildly dilated small bowel. This favors a persistent small bowel obstruction. ACT 112: Negative or not required by law. Electronically signed by: Franki Palomo M.D. 12/20/2023 12:50 PM
--- NOTE | 2023-12-21 06:00 | Electrocardiogram Report ---
Test Reason : Blood Pressure : */* mmHG Vent. Rate : 75 BPM Atrial Rate : 75 BPM P-R Int : 170 ms QRS Dur : 98 ms QT Int : 424 ms P-R-T Axes : 67 54 63 degrees QTcB Int : 473 ms Normal sinus rhythm Normal ECG When compared with ECG of 22-Nov-2023 21:11, Criteria for Inferior infarct are no longer Present T wave inversion no longer evident in Inferior leads Confirmed by Dewey Paulino ([id number]) on 12/21/2023 6:00:30 AM Referred By: REFERRED SELF Confirmed By: Dewey Paulino
[2023-12-21 09:51] LABS: BUN Creatinine Ratio 9.4 (10-20); Calcium 9.4 mg/dl (8.6-10.3); Creatinine Clr Calc Pharmacy 49.4 ml/min; Magnesium 1.9 mg/dl (1.7-2.4); Phosphorus 3.2 mg/dl (2.5-4.9); Potassium 3.6 mmol/L (3.5-5.1)
--- NOTE | 2023-12-21 10:45 | Fluoroscopy Report ---
SMALL BOWEL FOLLOW-THROUGH CLINICAL HISTORY: Small bowel obstruction COMPARISON STUDY: Abdominal CT dated 12/16/2023. TECHNIQUE: The patient consumed several of thin barium and a small follow-through was performed. 3 ov erhead radiographs were obtained. FINDINGS: The abdominal barrel maker radiograph shows an enteric tube in place. The tip projects over the mid to dista l stomach. There is no radiographic evidence of bowel obstruction. Suture material projects of the pe lvis. No abnormal abdominal calcifications are identified. The skeletal structures are osteopenic and appear intact. There is moderate lumbosacral spondylosis. On the small bowel follow-through, there is normal transit time with contrast identified in the colon at 30 minutes. The stomach and duodenum are normal in configuration. The small bowel mucosal pattern is normal. There is no evidence of stricture or mass. IMPRESSION: Normal small bowel follow-through with no evidence of obstruction. ACT 112: Negative or not required by law. Electronically signed by: Patrice Awad M.D. 12/21/2023 10:43 AM
--- NOTE | 2023-12-21 13:15 | Surgery Progress Note ---
Date of Service December 21, 2023 Assessment & Plan (1) Small bowel obstruction: Plan: appears resolved remove NG begin clears ambulate Admission and Anticipated Discharge Date Admission Date: December 16, 2023 Subjective multiple BMs no pain NG in place Review of Systems Constitutional: no fever and no chills Respiratory: no cough and no dyspnea Cardiovascular: no chest pain Gastrointestinal: no abdominal pain, no nausea, no vomiting and no change in bowel habits Genitourinary: no dysuria Results & Data Vital Signs (Past 12 Hours) Vital Signs Temp Pulse Resp BP Pulse Ox O2 Del Method 12/21/23 11:25 91 H 16 103/72 99 Room Air 12/21/23 07:50 36.7 C 97 H 16 149/84 H 98 Room Air Diagnostic Findings SMALL BOWEL FOLLOW-THROUGH CLINICAL HISTORY: Small bowel obstruction COMPARISON STUDY: Abdominal CT dated 12/16/2023. TECHNIQUE: The patient consumed several of thin barium and a small follow- through was performed. 3 overhead radiographs were obtained. FINDINGS: The abdominal bicycle repairman radiograph shows an enteric tube in place. The tip projects over the mid to distal stomach. There is no radiographic evidence of bowel obstruction. Suture material projects of the pelvis. No abnormal abdominal calcifications are identified. The skeletal structures are osteopenic and appear intact. There is moderate lumbosacral spondylosis. On the small bowel follow-through, there is normal transit time with contrast identified in the colon at 30 minutes. The stomach and duodenum are normal in configuration. The small bowel mucosal pattern is normal. There is no evidence of stricture or mass. IMPRESSION: Normal small bowel follow-through with no evidence of obstruction.
--- NOTE | 2023-12-21 13:25 | Hospitalist Progress Note ---
Date of Service December 21, 2023 Assessment & Plan (1) Small bowel obstruction: Plan Sherlyn Romero is a 78y/o F with PMHx significant for sigmoid resection secondary to perforated diverticulitis [2017], recurrent small bowel obstructions, hypertension and asthma who presented to the ED on 12/16/2023 secondary to abdominal pain, vomiting and diarrhea. She was found to have small bowel obstruction at time of admission. Small Bowel Obstruction: H/O sigmoid resection secondary to bowel perforation in 2017 with repair of rectovaginal fistula, hysterectomy & exploratory laparotomy for ruptured ovarian cyst. Multiple episodes of small bowel obstruction, most recently last month that was managed conservatively under our service. Admitting CTAP --> Small bowel obstruction. Transition point within the left lower quadrant. Distention of the small bowel up to 4.5cm. No pneumatosis, portal venous gas, or free air. General surgery onboard. Have been managing her recurrent SBO conservatively with NGT decompression, IVF, PRN pain control and bowel rest per general surgery's recommendation. 12/19 General surgery ordered a small bowel follow through (SBFT) study to be done today to evaluate the location of the SBO. And per general surgery --> Given her chronic constipation and that has stool burden in right colon, SBFT study may be slightly therapeutic due to oral contrast. Patient went down for her SBFT study this morning and unfortunately it could not be performed due to esophageal positioning of the NGT --> "Tip of nasogastric tube projects over the distal esophagus. The tube could be advanced 14cm before obtaining a repeat KUB." Patient blew her nose while down at x-ray and dislodged the NGT. Spoke with Teresa Christianson PA-C via TT. Cannot perform the SBFT again until tomorrow morning. NGT has been repositioned by nursing staff. 12/20 Patient had SBFT study this morning --> "Normal small bowel follow-through with no evidence of obstruction." SBO appears resolved. Patient to be started on a clear liquid diet, can remove NGT per general surgery's recommendation. Nursing staff made aware. Hypoglycemia: Hgb A1c 6.3% this admission. Patient with episode of hypoglycemia on 12/17. D5 now incorporated into fluids and this has improved. Placed on BSG checks TID to follow closely, no indication for insulin coverage at this time. Likely can stop her IVF tomorrow if she tolerates a clear liquid diet. Asthma: No signs of exacerbation, continue home PRN inhaler. Hypertension: Recently diagnosed at [facility]; she was started lisinopril 10mg BID. Home lisinopril was on hold due to NGT placement. PRN IV hydralazine for SBP>170 ordered. Will plan to resume her lisinopril in the AM if she tolerates clear liquid intake. DVT Prophylaxis: SQ Heparin, patient ambulatory as well. Code Status: FULL CODE PCP: Bishnu Gaviria MD Disposition: Admitted in Med/Surg Patient seen in collaboration with Dr. Castillo. Please see addendum. I spent a total of 40 minutes coordinating, documenting, and providing care for this patient excluding time spent in the performance of separately billed services. This included personally reviewing all current laboratories and imaging studies, medical reconciliation, outpatient chart review and discussion with specialists. This chart was completed in part utilizing Speech Voice Recognition Software. Grammatical errors, random word insertions, pronoun errors, and incomplete sentences are an occasional consequence of this system due to software limitations, ambient noise, and hardware issues. Any formal questions or concerns about the content, text, or information contained within the body of this dictation should be directly addressed to the provider for clarification. Admission and Anticipated Discharge Date Admission Date: December 16, 2023 Supervising Physician Co-Signing Physician Notes I have seen and examined the patient at bedside. Discussed the case with the collaborating advanced practitioner. I agree with the documentation as above. I have reviewed and confirmed the patients medical history, the findings on physical examination, and the patients diagnosis and treatment plan with Natalya Fagan PA-C and agree with the information documented. Recurrent small bowel obstruction Patient had small bowel follow-through today Remove NG tube per surgery Had bowel movements today Started on clear liquid diet Appreciate surgery input Continue gentle IV fluids still oral intake improves as blood pressure low Hold home antihypertensives Subjective Patient feeling much better this morning. She had a small BM last night and then another one this morning. NGT still in place but not attached to suction. Denies any N/V, epigastric pain significantly improved. Passing gas without issue. Review of Systems Review of Systems: At least ten systems reviewed and negative, except as noted in the subjective section. Physical Exam Physical Exam: General: WD/WN, vitals as above, NAD, sitting up on side of bed, very pleasant, conversing appropriately. A+Ox3, euthymic affect. HEENT: Normocephalic, atraumatic. PERRL, conjunctivae normal, anicteric sclerae. External ear and nose normal, oropharynx normal. Respiratory: Normal respiratory effort, lungs clear to auscultation, no wheeze, rales, rhonchi. No accessory muscle use. Cardiovascular: Regular rate, rhythm, no murmur, normal peripheral pulses, no BLE edema. Vessels: No JVD. Abdomen/GI: Active bowel sounds, soft, TTP in epigastric region improved, no hepatosplenomegaly, NGT in place. Extremities/Musculoskeletal: No cyanosis or clubbing, extremities motor strength intact, moves all extremities. Neurologic: EOMI, no focal deficits, CN's II-XI not formally tested but appear grossly intact bilaterally. Skin: No rashes, normal color, warm/dry. Results & Data Results & Data Vital Signs (Past 12 Hours) Vital Signs Temp Pulse Resp BP Pulse Ox O2 Del Method 12/21/23 11:25 91 H 16 103/72 99 Room Air 12/21/23 07:50 36.7 C 97 H 16 149/84 H 98 Room Air Laboratory Results [facility] 12/21/23 08:58 Sodium 140 Potassium 3.6 Chloride 105 Carbon Dioxide 27 BUN 6 Creatinine 0.64 Glucose 112 H Calcium 9.4 Diagnostic Findings Small Bowel X-Ray 12/21/23 08:00 SMALL BOWEL FOLLOW-THROUGH CLINICAL HISTORY: Small bowel obstruction COMPARISON STUDY: Abdominal CT dated 12/16/2023. TECHNIQUE: The patient consumed several of thin barium and a small follow- through was performed. 3 overhead radiographs were obtained. FINDINGS: The abdominal medical transport specialist radiograph shows an enteric tube in place. The tip projects over the mid to distal stomach. There is no radiographic evidence of bowel obstruction. Suture material projects of the pelvis. No abnormal abdominal calcifications are identified. The skeletal structures are osteopenic and appear intact. There is moderate lumbosacral spondylosis. On the small bowel follow-through, there is normal transit time with contrast identified in the colon at 30 minutes. The stomach and duodenum are normal in configuration. The small bowel mucosal pattern is normal. There is no evidence of stricture or mass. IMPRESSION: Normal small bowel follow-through with no evidence of obstruction. ACT 112: Negative or not required by law. Electronically signed by: Patrice Awad M.D. 12/21/2023 10:43 AM
[2023-12-21] MEDS: SODIUM CHLORIDE 0.9% 1,000 ML IV ONE (16:41)
[2023-12-21 19:30] VITALS: RESP 18
[2023-12-22 06:12] LABS: Hematocrit (blood only) 32.1 % (37.0-47.0); Hemoglobin 10.6 g/dl (12.0-16.0); Mean Corpuscular Hemoglobin 29.8 pg (25.0-34.0); Mean Corpuscular Volume 90.2 fL (80.0-100.0); Mean Platelet Volume 9.8 fL (9.4-12.4); Platelet Count 192 K/uL (130-400); RDW Coefficient of Variation 12.7 % (11.5-14.5); RDW Standard Deviation 41.8 fL (36.4-46.3); Red Blood Count 3.56 M/uL (4.20-5.40); White Blood Count 3.68 K/ul (4.8-10.8)
[2023-12-22 06:28] LABS: BUN Creatinine Ratio 25.5 (10-20); Calcium 7.9 mg/dl (8.6-10.3); Creatinine Clr Calc Pharmacy 67.3 ml/min; Magnesium 1.6 mg/dl (1.7-2.4); Phosphorus 3.1 mg/dl (2.5-4.9); Potassium 3.4 mmol/L (3.5-5.1)
--- NOTE | 2023-12-22 11:58 | Surgery Progress Note ---
Date of Service December 22, 2023 Assessment & Plan (1) Small bowel obstruction: Plan: begin regular diet discharge today/tomorrow per medical team will sign off Admission and Anticipated Discharge Date Admission Date: December 16, 2023 Subjective doing well BMs no N/V Review of Systems Constitutional: no fever and no chills Gastrointestinal: no abdominal pain, no nausea, no vomiting and no change in bowel habits Physical Exam Constitutional: WD/WN, vitals as above Gastrointestinal (Abdomen): Inspection/Auscultation: abdomen normal to inspection Percussion/Palpation: abdomen soft; abdomen nontender, no guarding and abdomen not rigid Results & Data Vital Signs (Past 12 Hours) Vital Signs Temp Pulse Resp BP Pulse Ox O2 Del Method 12/22/23 07:13 36.9 C 62 18 128/72 96 Room Air
[2023-12-22] MEDS: POTASSIUM CHLORIDE 20 MEQ/15 ML UDC PO STA (12:58)
--- NOTE | 2023-12-22 13:44 | Hospitalist Progress Note ---
Date of Service December 22, 2023 Assessment & Plan (1) Small bowel obstruction: Plan Sherlyn Romero is a 78y/o F with PMHx significant for sigmoid resection secondary to perforated diverticulitis [2017], recurrent small bowel obstructions, hypertension and asthma who presented to the ED on 12/16/2023 secondary to abdominal pain, vomiting and diarrhea. She was found to have small bowel obstruction at time of admission. Small Bowel Obstruction H/O sigmoid resection secondary to bowel perforation in 2017 with repair of rectovaginal fistula, hysterectomy & exploratory laparotomy for ruptured ovarian cyst. Multiple episodes of small bowel obstruction, most recently last month that was managed conservatively under our service. CT abd/pelvis on admission : Small bowel obstruction. Transition point within the left lower quadrant. Distention of the small bowel up to 4.5cm. No pneumatosis, portal venous gas, or free air. General surgery onboard - small bowel follow through study from 12/20 with Normal small bowel follow-through with no evidence of obstruction Diet advanced from clears to low fiber diet per surgery. Ok for discharge from their standpoint; will plan for tomorrow per discussion with patient Hypoglycemia Hgb A1c 6.3% this admission Patient with episode of hypoglycemia on 12/17. D5 now incorporated into fluids and this has improved -> fluids discontinued now tolerating PO diet Asthma: No signs of exacerbation, continue home PRN inhaler Hypertension Recently diagnosed at [facility] Resumed lisinopril 10mg PO BID since diet advanced DVT Prophylaxis: SQ Heparin, ambulation Code Status: FULL CODE PCP: Bishnu Gaviria MD Disposition: Admitted in Med/Surg. Plan for ia home tomorrow Patient seen in collaboration with Dr. Oneill Please see addendum. I spent a total of 50 minutes coordinating, documenting, and providing care for this patient excluding time spent in the performance of separately billed services. This included personally reviewing all current laboratories and imaging studies, medical reconciliation, outpatient chart review and discussion with specialists. Admission and Anticipated Discharge Date Admission Date: December 16, 2023 Supervising Physician Co-Signing Physician Notes Patient seen and examined at bedside. Comfortable; not in distress. Denies fever, chills, chest pain, shortness of breath, abdominal pain or urinary symptoms. No significant overnight events Tolerating full liquid diet without any issues; diet advanced I have reviewed the advanced practitioner's documentation, and I agree with, and take responsibility for the plan of care I spent a total of 15 minutes coordinating, documenting, and providing care for this patient excluding time spent in the performance of separately billed services. All of the aforementioned completed while collaborating with the assigned advanced practitioner for a full treatment plan Subjective Seen and examined in 356-1. Feeling much better today. Tolerated clears for 3 meals, ready to try soft diet. + BM yesterday. No N/V. No F/C, CP, SOB, abd pain, dysuria. Continues to ambulate in the halls without issue. Lives alone with good family and friend support. Review of Systems Review of Systems: At least ten systems reviewed and negative except as noted in the HPI. Physical Exam Physical Exam: Gen: WD/WN, NAD, resting in bed comfortably, A&Ox3 HEENT: Normocephalic, atraumatic, conjunctivae moist, sclerae anicteric, mucous membranes moist Lung: Clear to Auscultation bilaterally, no wheezes/rales/rhonchi Heart: Regular rate, regular rhythm, no murmurs, rubs, or gallops Abdomen: Soft, NT, ND +BS x 4 Extremities: no edema Skin: Warm, no rash Results & Data Results & Data Vital Signs (Past 12 Hours) Vital Signs Temp Pulse Resp BP Pulse Ox O2 Del Method 12/22/23 07:13 36.9 C 62 18 128/72 96 Room Air Laboratory Results Short CBC 12/22/23 Range/Units 05:28 WBC 3.68 L (4.8-10.8) K/ul Hgb 10.6 L (12.0-16.0) g/dl Hct 32.1 L (37.0-47.0) % Plt Count 192 (130-400) K/uL BMP 12/22/23 05:28 Sodium 138 Potassium 3.4 L Chloride 109 H Carbon Dioxide 23 BUN 12 Creatinine 0.47 L Glucose 97 Calcium 7.9 L Diagnostic Findings Abdomen/Pelvis CT 12/16/23 17:26 Exam(s): CT ABDOMEN + PELVIS With Contrast IV Amt: 93 ml opti 320 EXAM: CT Abdomen and Pelvis With Intravenous Contrast CLINICAL HISTORY: Reason for exam: bowel obs. TECHNIQUE: Axial computed tomography images of the abdomen and pelvis with intravenous contrast. CTDI is 9 mGy and DLP is 389 mGy-cm. Automated exposure control was utilized for the study. A dose lowering technique was utilized adhering to the principles of ALARA. CONTRAST: Patient received 93 ml opti 320 of IV contrast COMPARISON: 11/22/2023. FINDINGS: ABDOMEN: Liver: Unremarkable. Gallbladder and bile ducts: Cholelithiasis without acute cholecystitis. Pancreas: Unremarkable. Spleen: Unremarkable. Adrenals: Unremarkable. Kidneys and ureters: Unremarkable. No obstructing stones. No hydronephrosis. Stomach and bowel: Small bowel obstruction. Transition point within the left lower quadrant. Distention of the small bowel up to 4.5 cm. No pneumatosis, portal venous gas, or free air. Stomach is distended with liquid contents. Intact suture anastomosis within the sigmoid colon. PELVIS: Appendix: No findings to suggest acute appendicitis. Bladder: Unremarkable. Reproductive: Hysterectomy. ABDOMEN and PELVIS: Intraperitoneal space: See above. Bones/joints: No acute fracture. Soft tissues: Unremarkable. Vasculature: Unremarkable. Lymph nodes: Unremarkable. IMPRESSION: Small bowel obstruction. Transition point within the left lower quadrant. Distention of the small bowel up to 4.5 cm. No pneumatosis, portal venous gas, or free air. Electronically signed by: Dane Ordonez MD 12/16/23 19:24 PM KUB X-Ray 12/16/23 19:46 KUB HISTORY: Status post placement of an enteric tube after NGT COMPARISON: CT of same day FINDINGS: The lower abdomen is excluded from the [id number]. Contrast noted within the renal collecting systems and urinary bladder. The imaged lung thomas appear clear. Heart is upper limits of normal in size. Distal tip of enteric tube projects over the left mid abdomen, likely within the distended gastric body. Surgical suture material projects over the midline pelvis. Persistent small bowel obstruction with unchanged small bowel dilation. No renal calculi. No ureteral calculi. No pneumoperitoneum or pneumatosis. No fracture. IMPRESSION: 1. Distal tip of enteric tube projects over the distended stomach. 2. Persistent small bowel obstruction ACT 112: Negative or not required by law. The above report was generated using voice recognition software. It may contain grammatical, syntax or spelling errors. Electronically signed by: Reilly Valera M.D. 12/17/2023 7:14 AM KUB X-Ray 12/17/23 08:00 XR KUB/Abdomen 1 view CLINICAL HISTORY: sbo TECHNIQUE: 1 view of the abdomen was obtained. Comparison: Comparison is made to abdomen radiograph 12/16/2023 FINDINGS: Enteric tube terminates in the stomach. Degenerative changes are seen in the visualized skeleton. Small bowel dilation measures 38 mm. Small stool burden is seen. IMPRESSION: Findings compatible with small bowel obstruction. ACT 112: Negative or not required by law. Electronically signed by: Geoffrye Tapia M.D. 12/17/2023 10:41 AM KUB X-Ray 12/19/23 08:00 XR KUB/Abdomen 1 view CLINICAL HISTORY: sbo TECHNIQUE: 1 view of the abdomen was obtained. Comparison: Comparison is made to abdomen radiograph 12/17/2023 FINDINGS: Enteric tube terminates in the stomach. Degenerative changes are seen in the visualized skeleton. Prominent gas distended loops of small bowel are partially visualized. Small stool burden is seen. Postsurgical changes are seen in the pelvis compatible with prior bowel surgery. IMPRESSION: Findings compatible with small bowel obstruction. ACT 112: Negative or not required by law. Electronically signed by: Geoffrey Tapia M.D. 12/19/2023 10:55 AM Abdomen Fluoroscopy 12/20/23 11:34 KUB CLINICAL HISTORY: SMALL BOWEL INTERACTIVE MEDIA PROJECT MANAGER- SB NOT PERFORMED. COMPARISON STUDY: CT of the abdomen and pelvis December 16, 2023 and KUB December 19, 2023. FINDINGS: The patient presented for small bowel follow-through. The tip of the nasogastric tube projects over the distal esophagus. The tube could be advanced 14 cm. Several loops of mildly dilated small bowel are again noted. No evidence for free air on supine exam. IMPRESSION: 1. Tip of nasogastric tube projects over the distal esophagus. The tube could be advanced 14 cm before obtaining a repeat KUB. Small bowel follow-through not performed at this time given esophageal positioning of the nasogastric tube. 2. Several loops of mildly dilated small bowel. This favors a persistent small bowel obstruction. ACT 112: Negative or not required by law. Electronically signed by: Franki Palomo M.D. 12/20/2023 12:50 PM Small Bowel X-Ray 12/21/23 08:00 SMALL BOWEL FOLLOW-THROUGH CLINICAL HISTORY: Small bowel obstruction COMPARISON STUDY: Abdominal CT dated 12/16/2023. TECHNIQUE: The patient consumed several of thin barium and a small follow- through was performed. 3 overhead radiographs were obtained. FINDINGS: The abdominal systems architect radiograph shows an enteric tube in place. The tip projects over the mid to distal stomach. There is no radiographic evidence of bowel obstruction. Suture material projects of the pelvis. No abnormal abdominal calcifications are identified. The skeletal structures are osteopenic and appear intact. There is moderate lumbosacral spondylosis. On the small bowel follow-through, there is normal transit time with contrast identified in the colon at 30 minutes. The stomach and duodenum are normal in configuration. The small bowel mucosal pattern is normal. There is no evidence of stricture or mass. IMPRESSION: Normal small bowel follow-through with no evidence of obstruction. ACT 112: Negative or not required by law. Electronically signed by: Patrice Awad M.D. 12/21/2023 10:43 AM
[2023-12-22] MEDS: MAGNESIUM OXIDE 400 MG TAB PO SCH (14:35)
[2023-12-22] MEDS: lisinopril 10 MG TAB PO SCH (20:27)
[2023-12-23 07:21] VITALS: BP 131/69; TEMP 98.1; O2SAT 96
[2023-12-23 08:02] LABS: BUN Creatinine Ratio 29.5 (10-20); Calcium 8.5 mg/dl (8.6-10.3); Creatinine Clr Calc Pharmacy 71.9 ml/min; Potassium 4.1 mmol/L (3.5-5.1)
--- NOTE | 2023-12-23 11:12 | Discharge Summary ---
Discharge Summary Date of Service December 23, 2023 Principal Dx & Hospital Course #1 = Principal Diagnosis (1) Small bowel obstruction: Jaycob Romero is a 78y/o F with PMHx significant for sigmoid resection secondary to perforated diverticulitis [2017], recurrent small bowel obstructions, hypertension and asthma who presented to the ED on 12/16/2023 secondary to abdominal pain, vomiting and diarrhea. She was found to have small bowel obstruction at time of admission.H/O sigmoid resection secondary to bowel perforation in 2017 with repair of rectovaginal fistula, hysterectomy & exploratory laparotomy for ruptured ovarian cyst. Multiple episodes of small bowel obstruction, most recently last month that was managed conservatively under our service. Did undergo a small bowel follow through study on 12/20 per direction of general surgery which revealed normal small bowel follow-through with no evidence of obstruction. Resumed lisinopril 10mg BID recently started with HTN diagnosis. Discharging home on low fiber diet. Hemodynamically stable at time of discharge home. Notes For Next Care Provider SBO Medication Changes From Visit N/A Admission HPI Per Admitting Provider This is a 78-year-old female who has significant past medical history of sigmoid resection in 2017 secondary to perforated diverticulitis, recurrent small bowel obstructions, hypertension and asthma who presents to ED secondary to abdominal pain vomiting and diarrhea. Of significance patient was most recently hospitalized 11/22 to 12/02/2023 in setting of small bowel obstruction. She had multiple episodes of small bowel obstruction most recently in 2021 in 2022 which was managed conservatively. CT scan on previous admission showing a partial high-grade small bowel obstruction. She was treated with conservative measures including NG tube, IV fluids and pain meds. Her hospital course was complicated by hypokalemia and her electrolytes were replaced. She also had elevated blood pressure for which she was started on lisinopril. Since discharge she has been having off and on abdominal pain, diarrhea and vomiting. Her sx re started an hour after she returned home. She went to [facility] on 12/03. While there they initially wanted to transfer her, but she had a bowel movement, gas, felt better and they decided to send her home. She mostly has drank clear liquids x 3 days and her symptoms improved greatly. She felt well for 2-3 days before her sx of severe abd pain, multiple episodes of nausea/vomiting and diarrhea returned. She was to see Dr. Jones office on Wednesday, but when she called today they told her if severe pain returned to go to ED. She states, "I know I'm headed for an operation." She has prior hx of hysterectomy, exploratory laparoscopy due to ruptured ovarian cyst and sigmoid resection due to bowel perforation and rectovaginal fistula repair. In ED pt remained hemodynamically stable. CT scan reveals SBO with transition point in LLQ and SB dilated up to 4.5cm. She has been ordered an NGT. She vomited just prior to my arrival. Hx obtained from pt, daughter at bedside and review of medical records. Admission Exam Per Admitting Provider Constitutional: WD/WN, vitals as above, NAD, sitting up in bed, pleasant, conversing easily Head: Normocephalic, Atraumatic Eyes: PERRL, conjunctivae normal, anicteric sclerae ENMT: external ear and nose normal, oropharynx normal Neck: trachea midline, no thyromegaly normal visual inspection Respiratory: normal respiratory effort, lungs clear to auscultation, no wheeze, rales, rhonchi. Normal insp/exp effort, no accessory muscle use Cardiovascular: RRR, no murmur, no edema Vessels: no JVD or carotid bruit Chest: normal inspection of chest Abdomen: hyperactive bowel sounds, BS absent LLQ, soft, TTP throughout, no rebound or guarding, mild distension Musculoskeletal: no cyanosis or clubbing, extremities motor strength 5/5 Skin: no rashes, warm and dry normal turgor Neurologic: PERRL, EOMI, accommodation nl, no face palsy, no dysarthria CN's II-XI intact bilaterally and moves all extremities Psychiatric: A+Ox3, euthymic affect Lymphatic: no cervical or axillary lymphadenopathy : deferred Discharge Exam Gen: WD/WN, NAD, resting in bed comfortably, A&Ox3 HEENT: Normocephalic, atraumatic, conjunctivae moist, sclerae anicteric, mucous membranes moist Lung: Clear to Auscultation bilaterally, no wheezes/rales/rhonchi Heart: Regular rate, regular rhythm, no murmurs, rubs, or gallops Abdomen: Soft, NT, ND +BS x 4 Extremities: no edema Skin: Warm, no rash Updated Medication List Medication Instructions Recorded Confirmed Type levalbuterol tartrate 45 2 puff inhalation Q4 PRN Shortness 11/22/23 12/16/23 History mcg/actuation aerosol inhaler Of Breath Or Wheezing lisinopril 10 mg tablet 10 mg PO BID 11/22/23 12/16/23 History docusate sodium 100 mg capsule 100 mg PO BID #60 caps 12/02/23 12/16/23 Rx polyethylene glycol 3350 17 gram 17 g PO DAILY PRN constipation #30 12/02/23 12/16/23 Rx oral powder packet (Miralax) ea Hospital Stay Data Consultations 12/16/23 19:07 ED Decision to Admit Stat 12/16/23 19:14 Consult General Surgery Routine Diagnostic Imagining Performed 12/16/23 17:26 CT abd pelvis IV con only Stat 12/20/23 11:34 FL KUB Urgent 12/21/23 08:00 FL small bowel follow through Routine Pending Results Patient Have Any Pending Studies at Discharge: No Discharge Instructions Given to Patient (Per Discharging Provider) MEDICATION CHANGES: N/A SUMMARY OF TEST RESULTS: You were admitted for recurrent small bowel obstruction. CT abd/pelvis on admission showed Small bowel obstruction within the transition point within the left lower quadrant. Distention of the small bowel up to 4.5cm. No pneumatosis, portal venous gas, or free air. Resolution with conservative management PENDING TEST RESULTS: None RECOMMENDATIONS FOR FOLLOW-UP: Follow up with PCP as scheduled. Continue medication regimen as scheduled aside from changes noted above. OTHER INSTRUCTIONS: Seek medical attention if you have: * temperature above 101 * chest pain or trouble breathing * abdominal pain, nausea, vomiting * diarrhea, dark stools or bloody stools * any unanswered questions or concerns Call 911 if symptoms are severe. Please take good care of yourself. Call if you have any questions or problems. You can reach a [facility] hospitalist on duty at [facility] 24 hours a day by calling [phone]. Total Time Total Time Spent Total Time Spent (In Minutes): 35 Supervising Physician Co-Signing Physician Notes Patient seen and examined at bedside. Comfortable; not in distress. Denies fever, chills, chest pain, shortness of breath, abdominal pain or urinary symptoms. No significant overnight events Tolerating low fiber diet. discharged home I have reviewed the advanced practitioner's documentation, and I agree with, and take responsibility for the plan of care I spent a total of 15 minutes coordinating, documenting, and providing care for this patient excluding time spent in the performance of separately billed services. All of the aforementioned completed while collaborating with the assigned advanced practitioner for a full treatment plan
[2023-12-23 12:52] VITALS: PULSE 62
== END 2023-12-23 14:19 | disposition home or self-care (01) | DRG 390 ==
LOC: ED 16:34 → 3W 19:13 → SUATTDRO 19:13 → 3W 22:25
DX: J45.909 Unspecified asthma, uncomplicated; Z88.2 Allergy status to sulfonamides; K56.609 Unspecified intestinal obstruction, unspecified as to partial versus complete obstruction; I10 Essential (primary) hypertension; E16.2 Hypoglycemia, unspecified; Z88.8 Allergy status to other drugs, medicaments and biological substances